=== PATIENT | female | born 1955 | race Caucasian/White ===

== ENCOUNTER 2022-03-18 16:47 | Emergency (ER) | payer MEDICARE ==
--- NOTE | 2022-03-18 17:14 | ED ---
General Adult HPI - General Chief complaint: Fall Stated complaint: Fall Time Seen by Provider: 03/18/22 16:49 Source: patient Mode of arrival: EMS Limitations: altered mental status, physical limitation - History of Present Illness Initial comments: This is a 66-year-old female with a past mental history including early onset Alzheimer's, hypertension, hypothyroidism presents emergency department via EMS after a fall. The patient stated that she was smoking a cigarette when she fell down in her home, hitting her head but not losing consciousness. The patient reportedly was having slight delay in her speech and did not have all the details of the event. The patient's was present at the bedside and stated that he saw the patient fall to her side, hitting her head on the floor. He did not state that the patient lost consciousness. The patient herself was resting in bed and did not complain of any acute pain. The patient denied any weakness but did state that she was mildly lightheaded. The patient denied any nausea and vomiting. - Related Data Allergies Allergy/AdvReac Type Severity Reaction Status Date / Time No Known Allergies Allergy Verified 03/18/22 17:00 Review of Systems ROS Statement: Those systems with pertinent positive or pertinent negative responses have been documented in the HPI. ROS Other: All systems not noted in ROS Statement are negative. Past Medical History Past Medical History: Hyperlipidemia, Hypertension, Thyroid Disorder Additional Past Medical History / Comment(s): Possible Alzheimers Past Psychological History: Schizophrenia Smoking Status: Current every day smoker Past Alcohol Use History: None Reported Past Drug Use History: None Reported General Exam Limitations: no limitations (No limitations however patient's family does state that her speech seems to be delayed) General appearance: alert, in no apparent distress Head exam: Present: atraumatic, normocephalic Eye exam: Present: normal appearance, PERRL Pupils: Present: normal accommodation ENT exam: Present: normal exam, normal oropharynx, mucous membranes moist Neck exam: Present: normal inspection, other (In c-collar per EMS) Respiratory exam: Present: normal lung sounds bilaterally Cardiovascular Exam: Present: regular rate, normal rhythm, normal heart sounds GI/Abdominal exam: Present: soft, normal bowel sounds Extremities exam: Present: normal inspection, full ROM, normal capillary refill Back exam: Present: normal inspection, full ROM Neurological exam: Present: alert, oriented X3, CN II-XII intact Psychiatric exam: Present: normal mood, flat affect Skin exam: Present: warm, dry Course Vital Signs 03/18/22 03/18/22 03/18/22 16:50 17:56 18:59 Temperature 97.6 F Pulse Rate 62 62 74 Respiratory 18 18 18 Rate Blood Pressure 109/67 127/70 O2 Sat by Pulse 95 95 95 Oximetry 03/18/22 20:06 Temperature 97.9 F Pulse Rate 72 Respiratory 16 Rate Blood Pressure 122/80 O2 Sat by Pulse 96 Oximetry Medical Decision Making - Medical Decision Making Was pt. sent in by a medical professional or institution? @ -No Did you speak to anyone other than the patient for history? @ -Patient's and daughter Did you review nursing and triage notes? @ -Nursing triage notes were obtained and reviewed Were old charts reviewed? @ -No Differential Diagnosis? @ -Intracranial hemorrhage, stroke, skull fracture EKG interpreted by me (3pts min.)? @ -[none] X-rays interpreted by me (1pt min.)? @ -Chest x-ray was obtained and was interpreted by myself showing mild pulmonary fibrosis. There was no definitive acute lung disease. CT interpreted by me (1pt min.)? @ -Computed tomography scan of the head and C-spine were obtained and were interpreted by myself showing mild degenerative disc changes at C5 to C6. There is no acute fracture. There was mild cerebral atrophy. There is no acute intracranial abnormalities U/S interpreted by me (1pt. min.)? @ -[none] What testing was considered but not performed? (CT, X-rays, U/S, labs)? Why? @ [CT, X-rays, U/S, labs? Why?] What meds were considered but not given? Why? @ -[none] Did you discuss the management of the patient with other professionals? @ -No Did you reconcile home meds? @ -[none] Was smoking cessation discussed for >3mins.? @ -Yes Was critical care preformed (if so, how long)? @ -[none] Were there social determinants of health that impacted care today? How? (Homelessness, low income, unemployed, alcoholism, drug addiction, transportation, low edu. Level, literacy, decrease access to med. care, shelter, rehab)? @ -No Was there de-escalation of care discussed even if they declined? (Discuss DNR or withdrawal of care, Hospice)? @ -No What co-morbidities impacted this encounter? (DM, HTN, Smoking, COPD, CAD, Cancer, CVA, Hep., AIDS, mental health diagnosis, sleep apnea, morbid obesity)? @ -Tobacco smoking, hypertension, hypothyroidism Was patient admitted / discharged? @ -The patient was seen and evaluated emergency department. Physical exam, the patient was resting in bed without any acute distress. Vital signs were stable. Due to the nature the patient's fall and hitting her head, CT head, CT C-spine and chest x-ray were obtained. Laboratory workup was also obtained at this time. All imaging was negative and the patient's laboratory workup was negative as well. On reevaluation, the patient stated her symptoms had completely resolved and she did have a minor headache. The patient was told that she could have suffered from a concussion and was given concussion precautions to return back to the emergency department. The patient was advised to report back to the emergency department if any persons became acutely worse and her family was told of this as well. The patient had all of her questions answered appropriately and was discharged home with her family in stable condition. Undiagnosed new problem with uncertain prognosis? @ -[none] Drug Therapy requiring intensive monitoring for toxicity (Heparin, Nitro, Insulin, Cardizem)? @ -[none] Were any procedures done? @ -[none] Diagnosis/symptom? @ -Closed head injury, possible mild concussion Acute, or Chronic, or Acute on Chronic? @ -Acute Uncomplicated (without systemic symptoms) or Complicated (systemic symptoms)? @ -Uncomplicated Side effects of treatment? @ -[none] Exacerbation, Progression, or Severe Exacerbation] @ -[no] Poses a threat to life or bodily function? @ -[no] - Lab Data Result diagrams: 03/18/22 17:18 03/18/22 17:18 Lab Results 03/18/22 03/18/22 03/18/22 Range/Units 17:18 17:18 17:18 WBC 7.5 (3.8-10.6) k/uL RBC 4.46 (3.80-5.40) m/uL Hgb 13.9 (11.4-16.0) gm/dL Hct 41.0 (34.0-46.0) % MCV 92.0 (80.0-100.0) fL MCH 31.2 (25.0-35.0) pg MCHC 33.9 (31.0-37.0) g/dL RDW 13.0 (11.5-15.5) % Plt Count 182 (150-450) k/uL MPV 8.3 Neutrophils % 75 % Lymphocytes % 17 % Monocytes % 5 % Eosinophils % 1 % Basophils % 0 % Neutrophils # 5.6 (1.3-7.7) k/uL Lymphocytes # 1.3 (1.0-4.8) k/uL Monocytes # 0.3 (0-1.0) k/uL Eosinophils # 0.1 (0-0.7) k/uL Basophils # 0.0 (0-0.2) k/uL PT 10.8 (9.0-12.0) sec INR 1.0 (<1.2) APTT 24.6 (22.0-30.0) sec Sodium (137-145) mmol/L Potassium (3.5-5.1) mmol/L Chloride (98-107) mmol/L Carbon Dioxide (22-30) mmol/L Anion Gap mmol/L BUN (7-17) mg/dL Creatinine (0.52-1.04) mg/dL Est GFR (CKD-EPI)AfAm (>60 ml/min/1.73 sqM) Est GFR (CKD-EPI)NonAf (>60 ml/min/1.73 sqM) Glucose (74-99) mg/dL Calcium (8.4-10.2) mg/dL Magnesium (1.6-2.3) mg/dL Total Bilirubin (0.2-1.3) mg/dL AST (14-36) U/L ALT (4-34) U/L Alkaline Phosphatase (38-126) U/L Total Protein (6.3-8.2) g/dL Albumin (3.5-5.0) g/dL TSH (0.465-4.680) mIU/L Urine Color Light Yellow Urine Appearance Clear (Clear) Urine pH 6.0 (5.0-8.0) Ur Specific Ava 1.003 (1.001-1.035) Urine Protein Negative (Negative) Urine Glucose (UA) Negative (Negative) Urine Ketones Negative (Negative) Urine Blood Negative (Negative) Urine Nitrite Negative (Negative) Urine Bilirubin Negative (Negative) Urine Urobilinogen <2.0 (<2.0) mg/dL Ur Leukocyte Esterase Trace H (Negative) Urine RBC 1 (0-5) /hpf Urine WBC 1 (0-5) /hpf Ur Squamous Epith Cells 3 (0-4) /hpf 03/18/22 Range/Units 17:18 WBC (3.8-10.6) k/uL RBC (3.80-5.40) m/uL Hgb (11.4-16.0) gm/dL Hct (34.0-46.0) % MCV (80.0-100.0) fL MCH (25.0-35.0) pg MCHC (31.0-37.0) g/dL RDW (11.5-15.5) % Plt Count (150-450) k/uL MPV Neutrophils % % Lymphocytes % % Monocytes % % Eosinophils % % Basophils % % Neutrophils # (1.3-7.7) k/uL Lymphocytes # (1.0-4.8) k/uL Monocytes # (0-1.0) k/uL Eosinophils # (0-0.7) k/uL Basophils # (0-0.2) k/uL PT (9.0-12.0) sec INR (<1.2) APTT (22.0-30.0) sec Sodium 134 L (137-145) mmol/L Potassium 4.3 (3.5-5.1) mmol/L Chloride 104 (98-107) mmol/L Carbon Dioxide 25 (22-30) mmol/L Anion Gap 5 mmol/L BUN 3 L (7-17) mg/dL Creatinine 0.34 L (0.52-1.04) mg/dL Est GFR (CKD-EPI)AfAm >90 (>60 ml/min/1.73 sqM) Est GFR (CKD-EPI)NonAf >90 (>60 ml/min/1.73 sqM) Glucose 85 (74-99) mg/dL Calcium 9.8 (8.4-10.2) mg/dL Magnesium 1.9 (1.6-2.3) mg/dL Total Bilirubin 0.4 (0.2-1.3) mg/dL AST 32 (14-36) U/L ALT 19 (4-34) U/L Alkaline Phosphatase 100 (38-126) U/L Total Protein 6.9 (6.3-8.2) g/dL Albumin 4.4 (3.5-5.0) g/dL TSH 1.430 (0.465-4.680) mIU/L Urine Color Urine Appearance (Clear) Urine pH (5.0-8.0) Ur Specific Ava (1.001-1.035) Urine Protein (Negative) Urine Glucose (UA) (Negative) Urine Ketones (Negative) Urine Blood (Negative) Urine Nitrite (Negative) Urine Bilirubin (Negative) Urine Urobilinogen (<2.0) mg/dL Ur Leukocyte Esterase (Negative) Urine RBC (0-5) /hpf Urine WBC (0-5) /hpf Ur Squamous Epith Cells (0-4) /hpf Disposition Clinical Impression: Fall, Closed head injury Disposition: HOME SELF-CARE Condition: Stable Instructions (If sedation given, give patient instructions): Fall Prevention for Older Adults (ED), Head Injury (DC) Is patient prescribed a controlled substance at d/c from ED?: No Referrals: Nona Trent MD [Primary Care Provider] - 1-2 days Time of Disposition: 19:45
[2022-03-18 17:28] LABS: Basophils % (A) 0 %; Eosinophils # (A) 0.1 k/uL (0-0.7); Eosinophils % (A) 1 %; HGB 13.9 gm/dL (11.4-16.0); Lymphocytes # (A) 1.3 k/uL (1.0-4.8); Lymphocytes % (A) 17 %; MCH 31.2 pg (25.0-35.0); MCHC 33.9 g/dL (31.0-37.0); Mean Platelet Volume 8.3; Monocytes # (A) 0.3 k/uL (0-1.0); Monocytes % (A) 5 %; Neutrophils # (A) 5.6 k/uL (1.3-7.7); Neutrophils % (A) 75 %; Platelet Count 182 k/uL (150-450); RBC 4.46 m/uL (3.80-5.40); WBC 7.5 k/uL (3.8-10.6)
--- NOTE | 2022-03-18 17:51 | CT ---
EXAMINATION TYPE: CT brain cspine wo con DATE OF EXAM: 03/18/2022 COMPARISON: None HISTORY: fall Pain CT DLP: 1214.5 mGycm Automated exposure control for dose reduction was used. Images obtained of the brain and cervical spine with no contrast. There is some cerebral cortical atrophy. There is no mass effect or midline shift. No sign of intracr anial hemorrhage. The calvarium is intact and there is normal aeration of the mastoid sinuses. Cervical vertebrae are normal alignment. There is mild narrowing at C5-C6 with spurring of the endpla guy. Facet joints are intact. Prevertebral soft tissues are intact. IMPRESSION: Mild degenerative disc changes at C5-6. No fracture. Mild cerebral atrophy. No acute intracranial abnormality.
[2022-03-18 17:52] LABS: Appearance,Urine Clear (Clear); Bilirubin,Urine Negative (Negative); Blood,Urine Negative (Negative); Color,Urine Light Yellow; Glucose,Urine (UA) Negative (Negative); Ketones,Urine Negative (Negative); Leukocyte Esterase,Urine Trace (Negative); Nitrite,Urine Negative (Negative); Protein,Urine Negative (Negative); RBC,Urine 1 /hpf (0-5); Specific Gravity,Urine 1.003 (1.001-1.035); Squamous Epithelial Cell,Urine 3 /hpf (0-4); Urobilinogen,Urine <2.0 mg/dL (<2.0); WBC,Urine 1 /hpf (0-5)
--- NOTE | 2022-03-18 17:53 | XR ---
EXAMINATION TYPE: XR chest 1V portable DATE OF EXAM: 03/18/2022 COMPARISON: NONE HISTORY: Weakness TECHNIQUE: Single view FINDINGS: Heart is normal. Lungs are clear of consolidation. There is mild thoracic dextro scoliosis. There is coarsening of interstitial markings. The bony thorax is intact. IMPRESSION: Mild pulmonary fibrosis. No definite acute lung disease. Normal heart.
[2022-03-18 17:54] LABS: Partial Thromboplastin Time 24.6 sec (22.0-30.0); Prothrombin Time 10.8 sec (9.0-12.0)
[2022-03-18 18:24] LABS: ALT 19 U/L (4-34); AST 32 U/L (14-36); African American GFR (CKD) >90 (>60 ml/min/1.73 sqM); Albumin 4.4 g/dL (3.5-5.0); Alkaline Phosphatase 100 U/L (38-126); Anion Gap 5 mmol/L; Blood Urea Nitrogen 3 mg/dL (7-17); Calcium 9.8 mg/dL (8.4-10.2); Carbon Dioxide 25 mmol/L (22-30); Chloride 104 mmol/L (98-107); Glucose 85 mg/dL (74-99); Magnesium 1.9 mg/dL (1.6-2.3); Non-African American GFR(CKD) >90 (>60 ml/min/1.73 sqM); Potassium 4.3 mmol/L (3.5-5.1); Sodium 134 mmol/L (137-145); Total Bilirubin 0.4 mg/dL (0.2-1.3); Total Protein 6.9 g/dL (6.3-8.2)
[2022-03-18] MEDS ORDERED: KETOROLAC 15 MG/ML 1 ML VIAL IVP STA (19:54)
[2022-03-18 20:08] VITALS: BP 122/80; PULSE 72; RESP 16; TEMP 97.9
== END 2022-03-18 20:06 | disposition home or self-care (01) ==
LOC: EC 16:47
DX: S09.90XA Unspecified injury of head, initial encounter (principal); J84.10 Pulmonary fibrosis, unspecified; I10 Essential (primary) hypertension; F17.210 Nicotine dependence, cigarettes, uncomplicated; W18.09XA Striking against other object with subsequent fall, initial encounter; Y92.009 Unspecified place in unspecified non-institutional (private) residence as the place of occurrence of the external cause
CPT/HCPCS: 36415; 80053; 84443; 83735; 85025; 85610; 85730; 81001; 71045; 72125; 70450; 99285; 96374; J1885

== ENCOUNTER 2022-03-25 13:56 | Emergency (ER) | payer MEDICARE ==
[2022-03-25 14:04] VITALS: RESP 18; TEMP 97.6
--- NOTE | 2022-03-25 14:43 | ED ---
General Adult HPI - General Chief complaint: Recheck/Abnormal Lab/Rx Stated complaint: Left hip pain Time Seen by Provider: 03/25/22 14:22 Source: patient, family, RN notes reviewed Mode of arrival: ambulatory Limitations: no limitations - History of Present Illness Initial comments: Patient is a pleasant 66-year-old female presenting to the emergency department with concerns with left hip pain. Onset of symptoms was a week ago. Patient did have a fall.Please use medication as discussed. Please follow-up with family doctor in the next 2 days of symptoms have not improved. Please return to emergency room if the symptoms increase or worsen or for any other concerns. States she did have a head injury. Patient did have head CT done. Patient s tates she is having continued discomfort near her left hip. Patient states she is not able to walk on it. When further questioned regarding this, patient states she actually is able to walk on it however just has discomfort. Patient states she is able to make it to and from the restroom and confirms this. Patient does not have any other complaints at this time. - Related Data Home Medications Medication Instructions Recorded Confirmed Ergocalciferol [Vitamin D2 (1250 1,250 mcg PO WEEKLY 03/25/22 03/25/22 Mcg = 68335 Iu)] QUEtiapine FUMARATE 200 mg PO HS 03/25/22 03/25/22 Sertraline [Zoloft] 100 mg PO BID 03/25/22 03/25/22 clonazePAM [KlonoPIN] 2 mg PO BID 03/25/22 03/25/22 Allergies Allergy/AdvReac Type Severity Reaction Status Date / Time No Known Allergies Allergy Verified 03/25/22 15:28 Review of Systems ROS Statement: Those systems with pertinent positive or pertinent negative responses have been documented in the HPI. ROS Other: All systems not noted in ROS Statement are negative. Constitutional: Denies: fever Eyes: Denies: eye pain ENT: Denies: ear pain Respiratory: Denies: cough Cardiovascular: Denies: chest pain Endocrine: Denies: fatigue Gastrointestinal: Denies: abdominal pain Genitourinary: Denies: dysuria Musculoskeletal: Reports: as per HPI Skin: Denies: rash Neurological: Denies: weakness Past Medical History Past Medical History: Hyperlipidemia, Hypertension, Thyroid Disorder Additional Past Medical History / Comment(s): Possible Alzheimers Past Psychological History: Schizophrenia Smoking Status: Current every day smoker Past Alcohol Use History: None Reported Past Drug Use History: None Reported General Exam Limitations: no limitations General appearance: alert, in no apparent distress Head exam: Present: normocephalic Eye exam: Present: normal appearance, PERRL Neck exam: Present: normal inspection. Absent: tenderness Respiratory exam: Present: normal lung sounds bilaterally Cardiovascular Exam: Present: regular rate, normal rhythm Expanded Peripheral pulses: 2+: Dorsalis Pedis (R), Dorsalis Pedis (L) GI/Abdominal exam: Present: soft. Absent: tenderness Extremities exam: Present: tenderness (Mild to moderate tenderness left lateral and anterior hip. Distally the extremity is neurovascular intact.) Back exam: Present: normal inspection. Absent: tenderness, vertebral tenderness Neurological exam: Present: alert. Absent: motor sensory deficit Psychiatric exam: Present: normal affect, normal mood Skin exam: Present: normal color Course Vital Signs 03/25/22 14:00 Temperature 97.6 F Pulse Rate 65 Respiratory 18 Rate Blood Pressure 122/71 O2 Sat by Pulse 95 Oximetry Medical Decision Making - Medical Decision Making Patient reevaluated. Patient does not want pain medication. - Radiology Data Interpreted by me: X-ray shows nondisplaced pubic rami fracture Disposition Clinical Impression: Pubic ramus fracture Disposition: HOME SELF-CARE Condition: Stable Instructions (If sedation given, give patient instructions): Pelvic Fracture (ED) Additional Instructions: Please do follow-up with primary care physician in the next one or 2 days for recheck. Also follow-up with orthopedics, number provided. Return for increased pain, weakness, worsening or changing symptoms or other concerns or bladder problems. Ice to affected areas needed. Continue [id number] Tylenol or Motrin as needed. Is patient prescribed a controlled substance at d/c from ED?: No Referrals: Nona Trent MD [Primary Care Provider] - 1-2 days Renuka Hagen NPC [Nurse Practitioner] - 1-2 days Time of Disposition: 15:35
--- NOTE | 2022-03-25 15:12 | XR ---
EXAMINATION TYPE: XR Hip LT and AP Pelvis DATE OF EXAM: 03/25/2022 COMPARISON: NONE HISTORY: Pain TECHNIQUE: 3 views FINDINGS: There is irregular cortex on the left pubic symphysis. The proximal left femur and hip join t are intact. Sacroiliac joints are intact. IMPRESSION: Possible nondisplaced fracture left side pubic symphysis. No evidence of hip fracture.
[2022-03-25 16:32] VITALS: BP 120/69; PULSE 66
== END 2022-03-25 16:10 | disposition home or self-care (01) ==
LOC: EC 13:56
DX: S32.592A Other specified fracture of left pubis, initial encounter for closed fracture (principal); E78.5 Hyperlipidemia, unspecified; I10 Essential (primary) hypertension; E07.9 Disorder of thyroid, unspecified; F17.200 Nicotine dependence, unspecified, uncomplicated; W19.XXXA Unspecified fall, initial encounter
CPT/HCPCS: 73502; 99283

== ENCOUNTER → 2022-03-27 | Outpatient (CLI) | payer MEDICARE ==
--- NOTE | 2022-03-27 15:16 | US ---
EXAMINATION TYPE: US thyroid st tissue head/neck DATE OF EXAM: 03/27/2022 COMPARISON: NONE CLINICAL HISTORY: 66-year-old female E21.0 PRIMARY HYPERPARATHYROIDISM. TECHNIQUE: Multiple sonographic images of the thyroid gland are obtained. FINDINGS: GLAND SIZE: Right Lobe: 5.6 x 1.9 x 1.7 cm Overall Parenchyma: homogenous Left Lobe: 4.5 x 1.5 x 1.2 cm Overall Parenchyma: homogeneous Isthmus Thickness: .2 cm NODULES RIGHT: # of nodules measured on right: 1 1. 1.0 X .7 x .6 cm, mid , mixed cystic and solid, primarily solid hypoechoic nodule, which is wide r than tall, with lobulated or irregular margins, with macrocalcification. This is a TR5 nodule. Prior size: no previous. LEFT: # of nodules measured on left: 0 ISTHMUS: # of nodules measured in the isthmus: 0 Bilateral neck scanned, no evidence of lymphadenopathy. IMPRESSION: A 1.0 cm TR5 nodule at the right midpole. FNA can be performed.
--- NOTE | 2022-03-27 17:02 | BD ---
EXAMINATION TYPE: Axial Bone Density DATE OF EXAM: 03/27/2022 COMPARISON: NONE CLINICAL HISTORY: 66 years year old Female. ICD-10 CODE: E21.0 PRIMARY HYPERPARTHYROIDISM Height: 64 Weight: 107-per pt, she is non-weight bearing because of possible fx in lt ramus. FRAX RISK QUESTIONS: Alcohol (3 or more units per day): NO Family History (Parent hip fracture): NO Glucocorticoids (More than 3mos): NO History of Fracture in Adulthood: POSSIBLE NON-DISPLACED PELVIC FX Secondary Osteoporosis: 1. Type 1 Diabetes:NO 2. Hyperthyroidism: NO 3. Menopause before 45: NO 4. Malnutrition: NO 5. Chronic liver disease: NO Rheumatoid Arthritis: NO Current Tobacco Use: YES RISK FACTORS HISTORY OF: Hip Fracture (Right/Left): NO Spine Fracture: NO History of Wrist Fracture: NO Surgery to Spine/Hip(right/left)/Wrist (right/left): NO Family History of Osteoporosis: NO Active: NO Diet low in dairy products/other sources of calcium: YES Postmenopausal woman: NO Take estrogen and/or progesterone medications: NO Lost more than 2 inches in height since high school: NO Frequent falls: YES Poor Health: YES Hyperparathyroidism: NO Adrenal Insufficiency: NO MEDICATIONS: Prednisone or other steroids: NO Thyroid Medications: NO Osteoporosis Medications: NO Additional Medications: CLONAZEPAM, QUETIAPINE, SERTRALINE, VIT D 50,000 ONCE A WEEK EXAM MEASUREMENTS: Bone mineral densitometry was performed using the [employer] System. Bone mineral density as measured about the Lumbar spine is: ----- L1-L4(G/cm2): 1.035 T Score Values are as follows: ----- L1: -1.2 ----- L2: -1.0 ----- L3: -1.6 ----- L4: -1.0 ----- L1-L4: -1.2 BASELINE STUDY Bone mineral density about the R hip (g/cm2): 0.691 Bone mineral density about the L hip (g/cm2): 0.635 T Score values are as follows: -----R Neck: -2.5 -----L Neck: -2.9 -----R Total: -2.7 -----L Total: -2.8 BASELINE STUDY FRAX%s: The graph provided illustrates a 24.8% chance for a major osteoporotic fx and a 11.3% chance for the hips probability for fx in 10 years time. IMPRESSION: Osteoporosis (T Score less than -2.5). There is increased fracture risk and therapy is usually indicated based on age. Re-Screen 1-2 years. NOTE: T-SCORE=SD OF THE YOUNG ADULT MEAN.
== END | disposition home or self-care (01) ==
LOC: RADUSWWP 13:42
PROVIDERS: ATTEND Internal Medicine Endocrinology, Diabetes & Metabolism
DX: E04.1 Nontoxic single thyroid nodule (principal); M81.0 Age-related osteoporosis without current pathological fracture; M85.89 Other specified disorders of bone density and structure, multiple sites; E21.0 Primary hyperparathyroidism
CPT/HCPCS: 76536; 77080

== ENCOUNTER → 2022-06-06 | Outpatient (CLI) | payer MEDICARE ==
[2022-06-06 19:08] LABS: African American GFR (CKD) 116.9 (60.0-200.0); Albumin/Globulin Ratio 2.17 (1.60-3.17); Anion Gap 11.7 mmol/L (10.00-18.00); Calcium 10.7 mg/dL (8.7-10.3); Carbon Dioxide 27.3 mmol/L (20.0-27.5); Globulin 2.3 g/dL (1.6-3.3); Non-African American GFR(CKD) 100.9 (60.0-200.0); Potassium 4.7 mmol/L (3.5-5.5); Total Bilirubin 0.2 mg/dL (0.30-1.20); Total Protein 7.3 g/dL (6.2-8.2)
== END | disposition home or self-care (01) ==
LOC: LABWHC1 12:10
PROVIDERS: ATTEND Internal Medicine Endocrinology, Diabetes & Metabolism
DX: E21.0 Primary hyperparathyroidism (principal)
CPT/HCPCS: 80053; 82306; 83970

== ENCOUNTER → 2022-06-13 | Outpatient (CLI) | payer MEDICARE ==
--- NOTE | 2022-06-13 15:39 | US ---
EXAMINATION TYPE: US thyroid st tissue head/neck DATE OF EXAM: 06/13/2022 COMPARISON: CLINICAL HISTORY: E21.0. Abnormal labs. GLAND SIZE: Right Lobe: 4.4 x 1.7 x 2.3 cm Overall Parenchyma: heterogenous Left Lobe: 4.2 x 1.1 x 1.5 cm Overall Parenchyma: heterogeneous Isthmus Thickness: 0.3 cm NODULES RIGHT: # of nodules measured on right: 2 1. 0.9 X 0.7 x 0.5 cm, mid mid, mixed cystic and solid, hypoechoic nodule, which is wider than tall , with ill-defined margins, with echogenic foci. Prior size: 1.0 x 0.7 x 0.6 cm 2. 0.6 X 0.5 x 0.4 cm, mid medial, solid or almost completely solid, isoechoic nodule, which is wid er than tall, with ill-defined margins, without echogenic foci. Prior size: No prior LEFT: # of nodules measured on left: 0 ISTHMUS: # of nodules measured in the isthmus: 0 Bilateral neck scanned, no evidence of lymphadenopathy. Parathyroids not visualized at time of scan. IMPRESSION: 1. Subcentimeter nodules.
== END | disposition home or self-care (01) ==
LOC: RADNMMAIN 11:15
PROVIDERS: ATTEND Surgery
DX: E04.2 Nontoxic multinodular goiter (principal); E21.0 Primary hyperparathyroidism
CPT/HCPCS: 76536

== ENCOUNTER → 2022-06-13 | Outpatient (CLI) | payer MEDICARE ==
[2022-06-14 04:11] LABS: Calcium 24 Hour,Urine 97.8 mg/24Hr (100.0-300.0)
== END | disposition home or self-care (01) ==
LOC: LABWHC1 11:07
PROVIDERS: ATTEND Surgery
DX: E21.0 Primary hyperparathyroidism (principal)
CPT/HCPCS: 81050; 82340

== ENCOUNTER 2022-07-19 12:04 | Day surgery (SDC) | payer MEDICARE ==
[2022-07-19 13:08] VITALS: RESP 16; TEMP 97.8
--- NOTE | 2022-07-19 14:25 | US ---
ULTRASOUND GUIDED FNA THYROID BIOPSY: CLINICAL HISTORY: Right thyroid nodule FINDINGS: The procedure was explained to the patient. The risks, complications, benefits and alternatives were discussed and any questions were answered. Informed consent was obtained. Patient was placed supin e on the ultrasound table and prepped and draped in the usual sterile fashion. Utilizing a 25 gauge needle, five passes were made into the requested right thyroid nodule. Patient was stable throughout the procedure. Pathology is pending. All elements of maximal barrier technique were utilized. IMPRESSION: 1. Successful ultrasound guided FNA thyroid biopsy.
[2022-07-19 14:38] VITALS: BP 127/83; PULSE 58
== END 2022-07-19 14:15 | disposition home or self-care (01) ==
LOC: RADPROMAIN 12:04
PROVIDERS: ATTEND Internal Medicine Endocrinology, Diabetes & Metabolism
DX: E04.1 Nontoxic single thyroid nodule (principal)
CPT/HCPCS: 10005; 88173; 88305

== ENCOUNTER 2022-10-21 14:25 | Emergency (ER) | payer MEDICARE ==
--- NOTE | 2022-10-21 17:10 | ED ---
General Adult HPI - General Chief complaint: Skin/Abscess/Foreign Body Stated complaint: Post-op lump on chest Time Seen by Provider: 10/21/22 16:55 Source: patient, family Mode of arrival: ambulatory - History of Present Illness Initial comments: Patient presents to the ED with her daughter and son-in-law for evaluation. Patient states that she had surgery to remove her parathyroid glands at [facility] 5 days ago, and she developed a painful area of swelling along her anterior chest about 3 days ago. Patient states that she has come to the ED today for evaluation of this area of chest wall swelling. Patient denies increasing swelling, increasing pain, a fever or chills, chest wall trauma or injury, drainage, anticoagulant medication use, pleuritic pain, dyspnea, palpitations, dizziness, abdominal pain, nausea or vomiting, leg or calf swelling or pain, or any other symptoms or complaints. - Related Data Home Medications Medication Instructions Recorded Confirmed Ergocalciferol [Vitamin D2 (1250 1,250 mcg PO WEEKLY 03/25/22 07/19/22 Mcg = 78608 Iu)] QUEtiapine FUMARATE 200 mg PO HS 03/25/22 07/19/22 Sertraline [Zoloft] 100 mg PO BID 03/25/22 07/19/22 clonazePAM [KlonoPIN] 2 mg PO BID 03/25/22 07/19/22 Allergies Allergy/AdvReac Type Severity Reaction Status Date / Time amoxicillin Allergy Unknown Verified 10/21/22 14:37 Childhood Review of Systems ROS Statement: Those systems with pertinent positive or pertinent negative responses have been documented in the HPI. ROS Other: All systems not noted in ROS Statement are negative. Past Medical History Past Medical History: Hyperlipidemia, Hypertension, Thyroid Disorder Additional Past Medical History / Comment(s): Possible Alzheimers History of Any Multi-Drug Resistant Organisms: None Reported Past Surgical History: Section Past Anesthesia/Blood Transfusion Reactions: Postoperative Nausea & Vomiting (PONV) Past Psychological History: Depression, PTSD Smoking Status: Current every day smoker Past Alcohol Use History: None Reported Past Drug Use History: None Reported - Past Family History Mother Family Medical History: Coronary Artery Disease (CAD) General Exam Limitations: no limitations General appearance: alert, in no apparent distress Eye exam: Present: normal appearance ENT exam: Present: mucous membranes moist Neck exam: Present: other (Trachea is in midline; patient's anterior cervical surgical wound appears to be healing well without any evidence of infection) Respiratory exam: Present: normal lung sounds bilaterally, other (There is an approximately 3 cm area of mild swelling and tenderness and ecchymosis noted to the patient's superior sternal region-> no fluctuance, drainage or crepitation is appreciated). Absent: respiratory distress, wheezes, rales, rhonchi, stridor Cardiovascular Exam: Present: regular rate, normal rhythm, normal heart sounds, other (Normal radial pulses bilaterally) Extremities exam: Absent: tenderness, pedal edema, calf tenderness Neurological exam: Present: alert, oriented X3 Psychiatric exam: Present: normal affect, normal mood Skin exam: Present: warm, dry Course Vital Signs 10/21/22 10/21/22 10/21/22 14:34 15:55 17:06 Temperature 98.6 F 98.3 F 98.3 F Pulse Rate 65 67 62 Respiratory 18 16 18 Rate Blood Pressure 126/76 131/76 150/94 O2 Sat by Pulse 96 96 96 Oximetry Medical Decision Making - Medical Decision Making Was pt. sent in by a medical professional or institution (, PA, STOPPERER ASSEMBLER, urgent care, hospital, or fpc...) When possible be specific @ -No Did you speak to anyone other than the patient for history (EMS, parent, family, police, friend...)? What history was obtained from this source @ -No Did you review nursing and triage notes (agree or disagree)? Why? @ -I reviewed and agree with nursing and triage notes Were old charts reviewed (outside hosp., previous admission, EMS record, old EKG, old radiological studies, urgent care reports/EKG's, fpc records)? Report findings @ -No old charts were reviewed Differential Diagnosis (chest pain, altered mental status, abdominal pain women, abdominal pain men, vaginal bleeding, weakness, fever, dyspnea, syncope, headache, dizziness, GI bleed, back pain, seizure, CVA, palpatations, mental health, musculoskeletal)? @ -Chest wall hematoma, chest wall mass, chest wall abscess, chest wall seroma, malignancy EKG interpreted by me (3pts min.). @ -None done X-rays interpreted by me (1pt min.). @ -None done CT interpreted by me (1pt min.). @ -None done U/S interpreted by me (1pt. min.). @ -None done What testing was considered but not performed or refused? (CT, X-rays, U/S, labs)? Why? @ -None What meds were considered but not given or refused? Why? @ -None Did you discuss the management of the patient with other professionals (professionals i.e. , PA, STOPPERER ASSEMBLER, lab, RT, psych nurse, transition social worker, vacuum frame operator, teacher, medical officer psychiatry, outsole caser)? Give summary @ -No Was smoking cessation discussed for >3mins.? @ -No Was critical care preformed (if so, how long)? @ -No Were there social determinants of health that impacted care today? How? (Homelessness, low income, unemployed, alcoholism, drug addiction, transportati on, low edu. Level, literacy, decrease access to med. care, [place] [facility], rehab)? @ -No Was there de-escalation of care discussed even if they declined (Discuss DNR or withdrawal of care, Hospice)? DNR status @ -No What co-morbidities impacted this encounter? (DM, HTN, Smoking, COPD, CAD, Cancer, CVA, ARF, Chemo, Hep., AIDS, mental health diagnosis, sleep apnea, morbid obesity)? @ -None Was patient admitted / discharged? Hospital course, mention meds given and route, prescriptions, significant lab abnormalities, going to OR and other pertinent info. @ -Given the patient's reported history of recent surgery, as well as the ecchymotic appearance of her chest wall swelling, I suspect that the patient's chest wall swelling is likely due to a small hematoma. Still, I discussed the option to obtain lab work and chest imaging, but the patient refused, stating that she wishes to go home at this time. Patient and daughter/son-in-law were counseled about chest wall hematomas, and they were clearly explained return and follow-up instructions. Patient was instructed to follow up closely with her surgeon at [facility], as well as her primary care provider. Patient feels comfortable with this plan. Undiagnosed new problem with uncertain prognosis? @ -[o]Drug Therapy requiring intensive monitoring for toxicity (Heparin, Nitro, Insulin, Cardizem)? @ -[o]Were any procedures done? @ -[o]Diagnosis/symptom? @ -[Chest wall hematoma Acute, or Chronic, or Acute on Chronic? @ -[Acute Uncomplicated (without systemic symptoms) or Complicated (systemic symptoms)? @ -[Uncomplicated Side effects of treatment? @ -[o]Exacerbation, Progression, or Severe Exacerbation? @ -[o]Poses a threat to life or bodily function? How? (Chest pain, [place], [place], pneumonia, PE, COPD, DKA, ARF, appy, cholecystitis, CVA, Diverticulitis, Homicidal, Suicidal, threat to staff... and all critical care pts) @ -[o] Disposition Clinical Impression: Chest wall hematoma Disposition: HOME SELF-CARE Condition: Stable Instructions (If sedation given, give patient instructions): Hematoma (ED) Additional Instructions: Return to the ER immediately should you develop increased swelling, increased pain, a fever, shortness of breath, feeling dizzy or faint, or new or worsening symptoms. Follow up closely with your surgeon at [facility], as well as your primary care physician. Is patient prescribed a controlled substance at d/c from ED?: No Referrals: Nona Trent MD [Primary Care Provider] - 1-2 days Time of Disposition: 17:21
[2022-10-21 17:55] VITALS: BP 145/79; PULSE 65; RESP 16; TEMP 98.1
== END 2022-10-21 17:55 | disposition home or self-care (01) ==
LOC: EC 14:25
DX: S20.219A Contusion of unspecified front wall of thorax, initial encounter (principal); I10 Essential (primary) hypertension; F32.A Depression, unspecified; F17.200 Nicotine dependence, unspecified, uncomplicated; Z88.0 Allergy status to penicillin; Z79.899 Other long term (current) drug therapy; X58.XXXA Exposure to other specified factors, initial encounter
CPT/HCPCS: 99283

== ENCOUNTER 2022-11-18 14:01 | Emergency (ER) | payer OTHER, MEDICARE ==
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
[2022-11-18] MEDS ORDERED: MECLIZINE 12.5 MG TAB PO STA (15:30)
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
[2022-11-18 17:42] VITALS: BP 129/79; PULSE 72; RESP 16; TEMP 98.2
== END 2022-11-18 17:41 | disposition home or self-care (01) ==
LOC: EC 14:01
DX: F07.81 Postconcussional syndrome (principal); I10 Essential (primary) hypertension; F17.200 Nicotine dependence, unspecified, uncomplicated; Z86.59 Personal history of other mental and behavioral disorders; V43.52XA Car driver injured in collision with other type car in traffic accident, initial encounter; Y92.410 Unspecified street and highway as the place of occurrence of the external cause
CPT/HCPCS: 70450; 72110; 72125; 72170; 99284

== ENCOUNTER → 2022-12-28 | Outpatient (CLI) | payer MEDICARE, OTHER ==
[2022-12-28 20:54] LABS: ALT 11 U/L (8-44); AST 17 U/L (13-35); Albumin 4.6 d/dL (3.8-4.9); Albumin/Globulin Ratio 2.19 Ratio (1.60-3.17); Alkaline Phosphatase 102 U/L (41-126); Blood Urea Nitrogen 4.6 mg/dL (9.0-27.0); Calcium 9.3 mg/dL (8.7-10.3); Chloride 102 mmol/L (96-109); Chol/HDL Ratio 4.31 Ratio; Globulin 2.1 d/dL (1.6-3.3); Glucose 92 mg/dL (70-110); LDL Cholesterol,Calculated 171.9 mg/dL (0.0-131.0); Potassium 4.1 mmol/L (3.5-5.5); Sodium 140 mmol/L (135-145); Total Bilirubin 0.3 mg/dL (0.3-1.2); Total Protein 6.7 d/dL (6.2-8.2)
[2022-12-28 22:11] LABS: Basophils # (A) 0.02 X 10*3/uL (0.00-0.10); Basophils % (A) 0.4 %; Eosinophils # (A) 0.08 X 10*3/uL (0.04-0.35); Eosinophils % (A) 1.5 %; HCT 41.4 % (37.2-46.3); HGB 13.6 d/dL (12.0-15.0); Lymphocytes # (A) 1.34 X 10*3/uL (0.90-5.00); Lymphocytes % (A) 24.5 %; MCH 30.4 pg (27.0-32.0); MCHC 32.9 d/dL (32.0-37.0); MCV 92.6 FL (80.0-97.0); Mean Platelet Volume 10.6 FL (9.5-12.2); Monocytes # (A) 0.36 X 10*3/uL (0.20-1.00); Monocytes % (A) 6.6 %; NRBC Per 100 WBC 0 X 10*3/uL (0.00-0.01); Neutrophils # (A) 3.63 X 10*3/uL (1.80-7.70); Neutrophils % (A) 66.5 %; Platelet Count 196 X 10*3/uL (140-440); RBC 4.47 X 10*6/uL (4.10-5.20); RDW 13.6 % (11.5-14.5); WBC 5.46 X 10*3/uL (4.50-10.00)
== END | disposition home or self-care (01) ==
LOC: LABWHC1 13:49
PROVIDERS: ATTEND Family Medicine
DX: Z00.00 Encounter for general adult medical examination without abnormal findings (principal); E78.5 Hyperlipidemia, unspecified; E32.9 Disease of thymus, unspecified; E21.2 Other hyperparathyroidism; R42 Dizziness and giddiness
CPT/HCPCS: 36415; 80053; 80061; 85025

== ENCOUNTER → 2023-02-01 | Outpatient (CLI) | payer MEDICARE ==
[2023-02-01 21:52] LABS: ALT 14 U/L (8-44); AST 22 U/L (13-35); Albumin 4.7 g/dL (3.8-4.9); Albumin/Globulin Ratio 2.24 Ratio (1.60-3.17); Alkaline Phosphatase 107 U/L (41-126); BUN/Creat Ratio <7.00 Ratio (12.00-20.00); Blood Urea Nitrogen <3.5 mg/dL (9.0-27.0); Calcium 9.6 mg/dL (8.7-10.3); Carbon Dioxide 29.2 mmol/L (21.6-31.8); Chloride 105 mmol/L (96-109); Globulin 2.1 g/dL (1.6-3.3); Glucose 85 mg/dL (70-110); Potassium 4.5 mmol/L (3.5-5.5); Sodium 145 mmol/L (135-145); Total Bilirubin 0.2 mg/dL (0.3-1.2); Total Protein 6.8 g/dL (6.2-8.2)
== END | disposition home or self-care (01) ==
LOC: LABWHC1 12:30
PROVIDERS: ATTEND Internal Medicine Endocrinology, Diabetes & Metabolism
DX: E21.0 Primary hyperparathyroidism (principal)
CPT/HCPCS: 36415; 80053; 82306; 83970

== ENCOUNTER 2023-10-24 11:53 | Inpatient (IN) | payer MEDICARE ==
[2023-10-24 12:29] LABS: Glucose,Whole Blood 100 mg/dL (70-110)
--- NOTE | 2023-10-24 12:33 | ED ---
General Adult HPI - General Chief complaint: Neuro Symptoms/Deficit Stated complaint: Neuro Symp Time Seen by Provider: 10/24/23 12:02 Source: patient, RN notes reviewed Mode of arrival: wheelchair Limitations: no limitations - History of Present Illness Initial comments: Patient is a 68-year-old female presenting to the emergency department with weakness. Onset of symptoms was 10:00 last night. Patient has some difficulty swallowing and with speech. Patient also noticed some difficulty with her extremities. No history of similar symptoms previously. History has been inconsistent per nursing staff. - Related Data Home Medications Medication Instructions Recorded Confirmed QUEtiapine FUMARATE 100 mg PO HS 03/25/22 10/24/23 Sertraline [Zoloft] 100 mg PO DAILY 03/25/22 10/24/23 clonazePAM [KlonoPIN] 1 mg PO BID PRN 10/24/23 10/24/23 Allergies Allergy/AdvReac Type Severity Reaction Status Date / Time amoxicillin Allergy Unknown Verified 10/24/23 13:24 Childhood Review of Systems ROS Statement: Those systems with pertinent positive or pertinent negative responses have been documented in the HPI. ROS Other: All systems not noted in ROS Statement are negative. Constitutional: Denies: fever Eyes: Denies: eye pain ENT: Denies: ear pain Respiratory: Denies: cough, dyspnea Neurological: Reports: as per HPI, weakness. Denies: headache Past Medical History Past Medical History: Hyperlipidemia, Hypertension, Thyroid Disorder Additional Past Medical History / Comment(s): Possible Alzheimers History of Any Multi-Drug Resistant Organisms: None Reported Past Surgical History: Section Past Anesthesia/Blood Transfusion Reactions: Postoperative Nausea & Vomiting (PONV) Past Psychological History: Depression, PTSD Smoking Status: Current every day smoker Past Alcohol Use History: None Reported Past Drug Use History: None Reported - Past Family History Mother Family Medical History: Coronary Artery Disease (CAD) General Exam Limitations: no limitations General appearance: alert, in no apparent distress Head exam: Present: normocephalic Eye exam: Present: normal appearance, PERRL, EOMI ENT exam: Present: normal oropharynx Respiratory exam: Present: normal lung sounds bilaterally Cardiovascular Exam: Present: regular rate, normal rhythm, normal heart sounds GI/Abdominal exam: Present: soft. Absent: tenderness Extremities exam: Present: normal inspection Neurological exam: Present: alert Expanded Neurological exam: Present: protecting the airway, other (Slurred speech) Cranial nerves: EOM's Intact: Normal, Facial Sensation: Normal, Facial Palsy with Forehead Movement: Abnormal Right (Mild right facial droop that spares the forehead) Sensory exam: Upper Extremity Light Touch: Normal, Lower Extremity Light Touch: Normal Motor strength exam: RUE: 5, LUE: 5, RLE: 4, LLE: 5 Eye Response: (4) open spontaneously Motor Response: (6) obeys commands Verbal Response: (5) oriented Psychiatric exam: Present: normal affect, normal mood Skin exam: Present: normal color Course Vital Signs 10/24/23 10/24/23 11:57 13:13 Temperature 97.5 F L Pulse Rate 70 61 Respiratory 18 20 Rate Blood Pressure 134/73 124/74 O2 Sat by Pulse 92 L 96 Oximetry - Reevaluation(s) Reevaluation #1: 10/24/23 12:41 Case was discussed with Dr. Heart who recommends admission for medical care and agrees patient is not a candidate for tPA. Last known well is greater than 4.5 hours and risks are felt to outweigh the benefits EKG Findings - EKG Results: EKG: interpreted by ERMD, sinus rhythm, normal axis, normal QRS, normal ST/T Medical Decision Making - Medical Decision Making Was pt. sent in by a medical professional or institution (, [facility], PACKING AND FINAL ASSEMBLY SUPERVISOR, urgent care, hospital, or detention...) When possible be specific @ -No Did you speak to anyone other than the patient for history (EMS, parent, family, police, friend...)? What history was obtained from this source @ - later arrives and helps with onset. Did you review nursing and triage notes (agree or disagree)? Why? @ -I reviewed and agree with nursing and triage notes Were old charts reviewed (outside hosp., previous admission, EMS record, old EKG, old radiological studies, urgent care reports/EKG's, detention records)? Report findings @ -No old charts were reviewed Differential Diagnosis (chest pain, altered mental status, abdominal pain women, abdominal pain men, vaginal bleeding, weakness, fever, dyspnea, syncope, headache, dizziness, GI bleed, back pain, seizure, CVA, palpatations, mental health, musculoskeletal)? @ -Differential Weakness: Hypoglycemia, shock, sepsis, hyponatremia, anemia, infection, CT, ETOH, adverse medicine reaction, overdose, stroke, this is not meant to be an all-inclusive list. EKG interpreted by me (3pts min.). @ -As above X-rays interpreted by me (1pt min.). @ -Chest x-ray shows no acute process CT interpreted by me (1pt min.). @ -CT scan of brain and CT angio did not reveal acute abnormality U/S interpreted by me (1pt. min.). @ -None done What testing was considered but not performed or refused? (CT, X-rays, U/S, lab s)? Why? @ -None What meds were considered but not given or refused? Why? @ -Patient is not a tPA candidate Did you discuss the management of the patient with other professionals (professionals i.e. , PA, PACKING AND FINAL ASSEMBLY SUPERVISOR, lab, RT, psych nurse, director social, screening nurse, teacher, chemical instrumentation officer, case preparer and liner)? Give summary @ -Case discussed with Dr. Heart, see above. Case also discussed with practitioner Junior who will admit covering Dr. Mtz, who will admit for Dr. Ramirez Was smoking cessation discussed for >3mins.? @ -No Was critical care preformed (if so, how long)? @ -31 minutes critical care Were there social determinants of health that impacted care today? How? (Homelessness, low income, unemployed, alcoholism, drug addiction, transportation, low edu. Level, literacy, decrease access to med. care, alf, rehab)? @ -No Was there de-escalation of care discussed even if they declined (Discuss DNR or withdrawal of care, Hospice)? DNR status @ -No What co-morbidities impacted this encounter? (DM, HTN, Smoking, COPD, CAD, Cancer, CVA, ARF, Chemo, Hep., AIDS, mental health diagnosis, sleep apnea, morbid obesity)? @ -None Was patient admitted / discharged? Hospital course, mention meds given and route, prescriptions, significant lab abnormalities, going to OR and other pertinent info. @ -Patient presents with stroke symptoms, last known well 10 PM last night. Not a tPA candidate secondary to last known well greater than 4.5 hours. Patient reevaluated and unchanged. Patient and family updated on results and plan. Admission orders written. Neurology will be placed on consult. Undiagnosed new problem with uncertain prognosis? @ -No Drug Therapy requiring intensive monitoring for toxicity (Heparin, Nitro, Insulin, Cardizem)? @ -No Were any procedures done? @ -No Diagnosis/symptom? @ -CVA Acute, or Chronic, or Acute on Chronic? @ -Acute Uncomplicated (without systemic symptoms) or Complicated (systemic symptoms)? @ -Default Side effects of treatment? @ -No Exacerbation, Progression, or Severe Exacerbation? @ -No Poses a threat to life or bodily function? How? (Chest pain, USA, CT, pneumonia, PE, COPD, DKA, ARF, appy, cholecystitis, CVA, Diverticulitis, Homicidal, Suicidal, threat to staff... and all critical care pts) @ -Threat to neurological function - Lab Data Result diagrams: 10/24/23 12:43 10/24/23 12:43 Lab Results 10/24/23 10/24/23 10/24/23 Range/Units 12:27 12:43 12:43 WBC 5.6 (3.8-10.6) k/uL RBC 4.72 (3.80-5.40) m/uL Hgb 14.4 (11.4-16.0) gm/dL Hct 43.5 (34.0-46.0) % MCV 92.1 (80.0-100.0) fL MCH 30.4 (25.0-35.0) pg MCHC 33.0 (31.0-37.0) g/dL RDW 12.6 (11.5-15.5) % Plt Count 242 (150-450) k/uL MPV 7.2 Neutrophils % 67 % Lymphocytes % 24 % Monocytes % 5 % Eosinophils % 2 % Basophils % 1 % Neutrophils # 3.7 (1.3-7.7) k/uL Lymphocytes # 1.3 (1.0-4.8) k/uL Monocytes # 0.3 (0-1.0) k/uL Eosinophils # 0.1 (0-0.7) k/uL Basophils # 0.0 (0-0.2) k/uL PT 10.8 (10.0-12.5) sec INR 1.0 (<1.2) APTT 25.7 (22.0-30.0) sec Sodium (137-145) mmol/L Potassium (3.5-5.1) mmol/L Chloride (98-107) mmol/L Carbon Dioxide (22-30) mmol/L Anion Gap mmol/L BUN (7-17) mg/dL Creatinine (0.52-1.04) mg/dL Est GFR (CKD-EPI)AfAm (>60 ml/min/1.73 sqM) Est GFR (CKD-EPI)NonAf (>60 ml/min/1.73 sqM) Glucose (74-99) mg/dL POC Glucose (mg/dL) 100 (70-110) mg/dL POC Glu Weathercaster ID Vero Mistry Calcium (8.4-10.2) mg/dL Total Bilirubin (0.2-1.3) mg/dL AST (14-36) U/L ALT (4-34) U/L Alkaline Phosphatase (38-126) U/L Creatine Kinase (30-135) U/L Total Protein (6.3-8.2) g/dL Albumin (3.5-5.0) g/dL 10/24/23 Range/Units 12:43 WBC (3.8-10.6) k/uL RBC (3.80-5.40) m/uL Hgb (11.4-16.0) gm/dL Hct (34.0-46.0) % MCV (80.0-100.0) fL MCH (25.0-35.0) pg MCHC (31.0-37.0) g/dL RDW (11.5-15.5) % Plt Count (150-450) k/uL MPV Neutrophils % % Lymphocytes % % Monocytes % % Eosinophils % % Basophils % % Neutrophils # (1.3-7.7) k/uL Lymphocytes # (1.0-4.8) k/uL Monocytes # (0-1.0) k/uL Eosinophils # (0-0.7) k/uL Basophils # (0-0.2) k/uL PT (10.0-12.5) sec INR (<1.2) APTT (22.0-30.0) sec Sodium 143 (137-145) mmol/L Potassium 3.7 (3.5-5.1) mmol/L Chloride 106 (98-107) mmol/L Carbon Dioxide 30 (22-30) mmol/L Anion Gap 7 mmol/L BUN 3 L (7-17) mg/dL Creatinine 0.39 L (0.52-1.04) mg/dL Est GFR (CKD-EPI)AfAm >90 (>60 ml/min/1.73 sqM) Est GFR (CKD-EPI)NonAf >90 (>60 ml/min/1.73 sqM) Glucose 89 (74-99) mg/dL POC Glucose (mg/dL) (70-110) mg/dL POC Glu Weathercaster ID Calcium 9.3 (8.4-10.2) mg/dL Total Bilirubin 0.5 (0.2-1.3) mg/dL AST 22 (14-36) U/L ALT 10 (4-34) U/L Alkaline Phosphatase 95 (38-126) U/L Creatine Kinase 64 (30-135) U/L Total Protein 7.1 (6.3-8.2) g/dL Albumin 4.7 (3.5-5.0) g/dL Critical Care Time Critical Care Time: Yes Disposition Clinical Impression: Cerebrovascular accident (CVA) Disposition: ADMITTED IP TO THIS HOSP Is patient prescribed a controlled substance at d/c from ED?: No Referrals: Nona Trent MD [Primary Care Provider] - 1-2 days Time of Disposition: 13:36
--- NOTE | 2023-10-24 12:46 | CT ---
EXAMINATION TYPE: CT brain wo con DATE OF EXAM: 10/24/2023 COMPARISON: 11/18/2022 HISTORY: 68-year-old female neurologic deficit, acute, stroke suspected TECHNIQUE: Examination was done in axial plane without intravenous contrast. Coronal and sagittal r econstructions performed. CT DLP: 1107.7 mGycm Automated exposure control for dose reduction was used. FINDINGS: There is no evidence of acute intracranial hemorrhage, acute ischemic changes, mass, mass-effect, or extra-axial fluid collection. There is no effacement of cerebral sulci or basal subarachnoid cister ns. There is no hydrocephalus. There is no midline shift. Kendall-white matter distinction is preserv ed. Mild patchy hypodensity in both cerebral hemispheres. Paranasal sinuses and mastoid air cells well pneumatized. Orbits and globes are intact. Slight leftwa rd nasal septal deviation. IMPRESSION: Mild patchy burden of chronic small vessel ischemic disease. No acute intracranial abnormality seen.
[2023-10-24 12:56] LABS: Basophils % (A) 1 %; Eosinophils # (A) 0.1 k/uL (0-0.7); Eosinophils % (A) 2 %; HCT 43.5 % (34.0-46.0); HGB 14.4 gm/dL (11.4-16.0); Lymphocytes # (A) 1.3 k/uL (1.0-4.8); Lymphocytes % (A) 24 %; MCH 30.4 pg (25.0-35.0); MCV 92.1 fL (80.0-100.0); Mean Platelet Volume 7.2; Monocytes # (A) 0.3 k/uL (0-1.0); Monocytes % (A) 5 %; Neutrophils # (A) 3.7 k/uL (1.3-7.7); Neutrophils % (A) 67 %; Platelet Count 242 k/uL (150-450); RBC 4.72 m/uL (3.80-5.40); RDW 12.6 % (11.5-15.5); WBC 5.6 k/uL (3.8-10.6)
--- NOTE | 2023-10-24 13:01 | CT ---
EXAMINATION TYPE: CT angio head neck DATE OF EXAM: 10/24/2023 COMPARISON: Brain same day HISTORY: 68-year-old female neurologic deficit, acute, stroke suspected cva TECHNIQUE: Contiguous axial scanning of the head and neck performed with IV Contrast, patient injecte d with 65cc mL of Isovue 370. Coronal/sagittal reconstructions performed. 3-D reconstructions generat ed on a dedicated independent workstation. CT DLP: 302.7 mGycm Automated exposure control for dose reduction was used. FINDINGS: Neck: Prominent biapical pleural-parenchymal scarring. Moderate emphysematous change. Conventional vessel branching anatomy. Circumferential atherosclerotic plaque proximal left subclavia n artery with only minimal narrowing. The bilateral vertebral arteries are codominant and patent throughout their course. There is minimal atherosclerotic change of the bilateral carotid bifurcations. No significant narrowi ng of either common or internal carotid arteries. NASCET criteria was utilized. Head: The bilateral vertebral and basilar arteries as well as the remainder of the posterior circulation is patent. The dural venous sinuses are patent. The internal carotid arteries are widely patent with minimal scattered vascular calcifications. Remai nder of the anterior circulation is patent. IMPRESSION: NECK: 1. WIDELY PATENT CAROTID AND VERTEBRAL ARTERIES OF THE NECK. 2. COPD WITH MODERATE EMPHYSEMA IN THE VISUALIZED UPPER LUNGS. HEAD: 3. NO LARGE VESSEL INTRACRANIAL ARTERIAL OCCLUSION, SIGNIFICANT STENOSIS, OR ANEURYSMAL CHANGE IS SEE N.
[2023-10-24 13:04] LABS: Partial Thromboplastin Time 25.7 sec (22.0-30.0); Prothrombin Time 10.8 sec (10.0-12.5)
--- NOTE | 2023-10-24 13:13 | XR ---
EXAMINATION TYPE: XR chest 2V DATE OF EXAM: 10/24/2023 COMPARISON: 03/18/2022 HISTORY: 68-year-old female confusion, altered mental status TECHNIQUE: AP and lateral views FINDINGS: Heart borderline to mildly enlarged. Hyperinflation. Interstitial prominence is unchanged. No consoli dation or pleural effusion. Dextroconvex curvature of the spine. IMPRESSION: Borderline to mild cardiomegaly and COPD. Chronic changes. No acute process seen.
[2023-10-24 13:28] LABS: ALT 10 U/L (4-34); AST 22 U/L (14-36); African American GFR (CKD) >90 (>60 ml/min/1.73 sqM); Albumin 4.7 g/dL (3.5-5.0); Alkaline Phosphatase 95 U/L (38-126); Anion Gap 7 mmol/L; Blood Urea Nitrogen 3 mg/dL (7-17); Calcium 9.3 mg/dL (8.4-10.2); Carbon Dioxide 30 mmol/L (22-30); Chloride 106 mmol/L (98-107); Creatine Kinase 64 U/L (30-135); Glucose 89 mg/dL (74-99); Non-African American GFR(CKD) >90 (>60 ml/min/1.73 sqM); Potassium 3.7 mmol/L (3.5-5.1); Sodium 143 mmol/L (137-145); Total Bilirubin 0.5 mg/dL (0.2-1.3); Total Protein 7.1 g/dL (6.3-8.2)
[2023-10-24] MEDS: ATORVASTATIN 40 MG TAB PO SCH (14:15)
[2023-10-24] MEDS: ASPIRIN 325 MG TAB PO STA (14:15)
[2023-10-24] MEDS: SODIUM CHLORIDE 0.9% 1,000 ML IV SCH (14:15)
--- NOTE | 2023-10-24 15:14 | P.HPIM ---
History of Present Illness H&P Date: 10/24/23 History of Presenting Illness: Patient is a very pleasant 68-year-old female with a past medical history of hyperlipidemia, hypertension, hypothyroidism, anxiety, depression, PTSD, reports of multiple concussions, and nicotine dependence. She presented to the emergency department with a chief complaint right-sided weakness, facial droop, aphasia and dysphagia. Patient reported she first noticed the symptoms around 10 PM last night and noticed she had some right-sided weakness with difficulty walking, speaking and right-sided facial droop. Patient reports she thought the symptoms would just go away because she has had them happen in the past but only lasted a few moments before resolving. She states that she went to bed and awakening this morning upon the symptoms persisted so she told her she needed to come to the hospital. Patient denies having any headache, lightheadedness, dizziness, changes in vision or hearing, chest pain, pa lpitations, shortness of breath, cough or congestion, abdominal pain, nausea/vomiting, recent fever, chills, or infection, or experiencing any difficulties with or changes in her urinary or bowel function. Upon arrival to our facility patient underwent evaluation in the emergency department. Vital signs showing blood pressure 134/73, heart rate 70, respiratory rate 18, temp 97.5 F, and SpO2 of 92% on room air. Blood glucose 100. CT brain showing mild patchy burden of chronic small vessel ischemic disease, but negative for acute intracranial abnormality. EKG showing sinus rhythm at 62 bpm with T wave inversion in inferior leads II and aVF and occasional PVCs. Was completed and reviewed. CBC and coagulation profile normal findings. BMP unremarkable. Liver profile showing normal findings. CTA head and neck were completed. CTA neck showing widely patent carotid and vertebral arteries of the neck with COPD with moderate emphysema visualized in the upper lungs. CTA head showing no large vessel intracranial arterial occlusion, no significant stenosis or aneurysmal change reported. NIH upon arrival to hospital was reported to be 3. Patient is not a candidate for TNKase secondary to reported onset of symptoms being at 10 PM on 10/23/2023. Patient was given aspirin 325 mg p.o. x 1 dose and admitted under our services with consultation to neurology. Review of systems: Pertinent positives and negatives as discussed in HPI, a complete review of systems was performed and all other systems are negative. Physical exam: Vital signs reviewed and stable. General: Nontoxic, no distress and appears stated age. Derm: Skin warm and dry, normal coloration for ethnicity. Head: Atraumatic, normocephalic and symmetric. Eyes: EOMs intact, no lid lag, and anicteric sclera Mouth: no lip lesions, mucus membranes moist. Right-sided facial droop noted. Cardiovascular: regular rate and rhythm with normal S1S2, systolic murmur, systolic positive posterior tibial pulses bilaterally, and cap refill < 2 seconds. Lungs: Respirations even, regular, and unlabored on room air. Lungs CTA bilaterally, no rhonchi, no rales, no wheezing, and no accessory muscle usage. Abdominal: soft, nontender to palpation, no guarding, no appreciable organomegaly Ext: No gross muscle atrophy, no edema, no contractures. Movement and sensation intact. Patient with mild right hand weakness noted on assessment. No arm drop. Neuro: Mild aphasia noted, right-sided facial droop present. GCS 15. Psych: Alert and oriented to person, place, time, and situation. Flat affect. Assessment and Plan of Care: Right-sided weakness, aphasia, and facial droop, likely acute ischemic CVA Dysphagia Hyperlipidemia Hypertension Hypothyroidism History of multiple concussions -Consult neurology, appreciate recommendations. -Order placed for MRI brain without contrast -Echocardiogram -TSH, Lipid profile, and Hgb A1c be obtained. Patient reports history of hypertension, hyperlipidemia, and hypothyroidism but no longer on medications. -NIH stroke scale with neuro checks every 4 hours and as needed -Patient started on dual antiplatelet therapy with aspirin 81 mg daily and Plavix 75 mg daily along with atorvastatin 40 mg daily. -Allow for permissive hypertension over next 24 hours. -PT/OT consulted -Order placed for nursing bedside swallow exam, patient to remain n.p.o. pending these results. If patient passes bedside swallow may advance diet as patient tolerates to heart healthy diet if patient swallows nursing bedside swallow examination to remain n.p.o. pending evaluation by speech and language pathologist. -Consult to speech and language pathologist -Fall precautions and provide pt with assistance as needed Nicotine dependence Recommend smoking cessation. Order placed for nicotine patch 21 mg daily. Anxiety with depression PTSD Continue Klonopin 1 mg twice daily as needed for anxiety along with scheduled Seroquel 100 mg nightly and Zoloft 100 mg daily. Data and imaging reviewed: As stated above in HPI. The patient is admitted with an anticipated greater than 2 midnight stay for evaluation of acute ischemic CVA. CODE STATUS: Full code DVT prophylaxis: Lovenox Anticipated discharge date: Pending clinical course Anticipated discharge place: Pending clinical course Patient was seen independently by Nurse Practitioner. This document was prepared using [employer] dictation software. Please allow for errors in shipping clerk while rare they do occur. Junior Jorge UPHOLSTERY INSTRUCTOR rendered care for this patient independently, reviewed the findings and plan as documented in the note above. I did not physically speak with or examine the patient on this date. Past Medical History Past Medical History: Hyperlipidemia, Hypertension, Thyroid Disorder Additional Past Medical History / Comment(s): Possible Alzheimers History of Any Multi-Drug Resistant Organisms: None Reported Past Surgical History: Section Past Anesthesia/Blood Transfusion Reactions: Postoperative Nausea & Vomiting (PONV) Past Psychological History: Depression, PTSD Smoking Status: Current every day smoker Past Alcohol Use History: None Reported Past Drug Use History: None Reported - Past Family History Mother Family Medical History: Coronary Artery Disease (CAD) Medications and Allergies Home Medications Medication Instructions Recorded Confirmed Type QUEtiapine FUMARATE 100 mg PO HS 03/25/22 10/24/23 History Sertraline [Zoloft] 100 mg PO DAILY 03/25/22 10/24/23 History clonazePAM [KlonoPIN] 1 mg PO BID PRN 10/24/23 10/24/23 History Allergies Allergy/AdvReac Type Severity Reaction Status Date / Time amoxicillin Allergy Unknown Verified 10/24/23 13:24 Childhood Physical Exam Vitals: Vital Signs Temp Pulse Resp BP Pulse Ox 10/24/23 13:13 61 20 124/74 96 10/24/23 11:57 97.5 F L 70 18 134/73 92 L Intake and Output 10/23/23 10/24/23 10/24/23 22:59 06:59 14:59 Other: Weight 52.617 kg Results CBC & Chem 7: 10/24/23 12:43 10/24/23 12:43 Labs: Abnormal Lab Results - Last 24 Hours (Table) 10/24/23 Range/Units 12:43 BUN 3 L (7-17) mg/dL Creatinine 0.39 L (0.52-1.04) mg/dL
[2023-10-24] MEDS: CLOPIDOGREL 75 MG TAB PO STA (16:25)
[2023-10-24] MEDS: NICOTINE 21MG/24HR PATCH TRANSDERM SCH (16:49)
--- NOTE | 2023-10-24 19:44 | CA ---
Transthoracic Echo Report Name: Lucila Peguero Age: 68 Gender: F : 1955 Exam Date: 10/24/2023 14:38 Exam Location: [facility] Ht (in): 64 Wt (lb): 116 Ordering Physician: Po Campbell DO Attending/Referring Phys: Occupational Medicine Physician Alicia Salgado RDCS Procedure CPT: Indications: Thrombus Cardiac Hx: Technical Quality: Good Contrast 1: Total Dose (mL): Contrast 2: Total Dose (mL): MEASUREMENTS (Male / Female) Normal Values 2D ECHO LV Diastolic Diameter PLAX 5.0 cm 4.2 - 5.9 / 3.9 - 5.3 cm LV Systolic Diameter PLAX 3.3 cm IVS Diastolic Thickness 0.7 cm 0.6 - 1.0 / 0.6 - 0.9 cm LVPW Diastolic Thickness 0.8 cm 0.6 - 1.0 / 0.6 - 0.9 cm LV Relative Wall Thickness 0.3 LVOT Diameter 2.0 cm LV Diastolic Volume MOD BP 83.4 cm??? 67 - 155 / 56 - 104 cm??? LV Systolic Volume MOD BP 29.4 cm??? 22 - 58 / 19 - 49 cm??? LV Ejection Fraction MOD BP 64.8 % >= 55 % LV Cardiac Index MOD BP 2000.7 cm???/min???m??? LV Diastolic Volume MOD 4C 86.7 cm??? LV Systolic Volume MOD 4C 29.9 cm??? LV Ejection Fraction MOD 4C 65.5 % LV Cardiac Index MOD 4C 2104.2 cm???/min???m??? LV Diastolic Length 4C 7.5 cm LV Systolic Length 4C 6.0 cm LV Diastolic Volume MOD 2C 78.3 cm??? LV Systolic Volume MOD 2C 29.1 cm??? LV Ejection Fraction MOD 2C 62.8 % LV Cardiac Index MOD 2C 1823.6 cm???/min???m??? LV Diastolic Length 2C 7.3 cm LV Systolic Length 2C 6.0 cm LA Volume 43.7 cm??? 18 - 58 / 22 - 52 cm??? LA Volume Index 28.4 cm???/m??? 16 - 28 cm???/m??? DOPPLER AV Peak Velocity 125.0 cm/s AV Peak Gradient 6.3 mmHg AV Mean Velocity 88.1 cm/s AV Mean Gradient 3.4 mmHg AV Velocity Time Integral 29.7 cm LVOT Peak Velocity 93.8 cm/s LVOT Peak Gradient 3.5 mmHg LVOT Velocity Time Integral 21.5 cm LVOT Stroke Volume 65.1 cm??? LVOT Stroke Volume Index 41.9 ml/m??? LVOT Cardiac Index 2411.3 cm???/min???m??? AV Area Cont Eq vti 2.2 cm??? AV Area Cont Eq pk 2.3 cm??? MV Area PHT 3.5 cm??? Mitral E Point Velocity 54.6 cm/s Mitral A Point Velocity 52.0 cm/s Mitral E to A Ratio 1.0 MV Deceleration Time 216.1 ms TR Peak Velocity 276.3 cm/s TR Peak Gradient 30.5 mmHg Right Atrial Pressure 5.0 mmHg Pulmonary Artery Systolic Pressu 35.5 mmHg Right Ventricular Systolic Press 35.5 mmHg PV Peak Velocity 76.6 cm/s PV Peak Gradient 2.3 mmHg FINDINGS Left Ventricle Left ventricular ejection fraction is estimated at 60-65 %. Left ventricular cavity size normal. Left ventricular wall thickness normal. No obvious regional wall motion abnormalities. Negative bubble study. Right Ventricle Normal right ventricular size and function. Borderline elevated right ventricular systolic pressure. Right Atrium Normal right atrial size. Left Atrium Normal left atrial size. Mitral Valve Structurally normal mitral valve. No evidence for mitral valve prolapse. No mitral stenosis. Trace mitral regurgitation. Aortic Valve Trileaflet aortic valve. No aortic valve stenosis or regurgitation. Tricuspid Valve Structurally normal tricuspid valve. No tricuspid stenosis. Trace to mild tricuspid regurgitation. Pulmonic Valve Structurally normal pulmonic valve. No pulmonic stenosis. No pulmonic regurgitation. Pericardium No pericardial effusion. Aorta Normal size aortic root and proximal ascending aorta. CONCLUSIONS Diagnosis: CVA, evaluate for intracardiac mass Preserved LV systolic function Normal RV size and function No intracardiac masses No right-left shunting at the atrial level Previewed by: Dr. Ilan Dixon MD (Electronically Signed) Final Date: 24 October 2023 19:43
[2023-10-24] MEDS: clonazePAM 1 MG TAB PO PRN (21:48)
[2023-10-24] MEDS: QUEtiapine 100 MG TAB PO SCH (21:48)
[2023-10-25 08:24] LABS: HCT 39.7 % (34.0-46.0); MCH 30.4 pg (25.0-35.0); MCHC 32.7 g/dL (31.0-37.0); MCV 93.1 fL (80.0-100.0); Mean Platelet Volume 7.3; Platelet Count 201 k/uL (150-450); RBC 4.26 m/uL (3.80-5.40); RDW 12.8 % (11.5-15.5); WBC 3.9 k/uL (3.8-10.6)
[2023-10-25 08:37] LABS: ALT 9 U/L (4-34); AST 20 U/L (14-36); African American GFR (CKD) >90 (>60 ml/min/1.73 sqM); Albumin 3.9 g/dL (3.5-5.0); Alkaline Phosphatase 78 U/L (38-126); Anion Gap 4 mmol/L; Blood Urea Nitrogen 2 mg/dL (7-17); Calcium 8.8 mg/dL (8.4-10.2); Carbon Dioxide 27 mmol/L (22-30); Chloride 110 mmol/L (98-107); Glucose 111 mg/dL (74-99); Magnesium 1.9 mg/dL (1.6-2.3); Non-African American GFR(CKD) >90 (>60 ml/min/1.73 sqM); Potassium 3.6 mmol/L (3.5-5.1); Sodium 141 mmol/L (137-145); Total Bilirubin 0.6 mg/dL (0.2-1.3); Total Protein 6.1 g/dL (6.3-8.2)
[2023-10-25] MEDS ORDERED: ASPIRIN 325 MG TAB PO SCH (09:00)
[2023-10-25] MEDS: ENOXAPARIN 40 MG/0.4 ML SYRINGE SQ SCH (09:45)
[2023-10-25] MEDS: ASPIRIN 81 MG PO SCH (09:45)
[2023-10-25] MEDS: SERTRALINE 100 MG TAB PO SCH (09:45)
[2023-10-25] MEDS: CLOPIDOGREL 75 MG TAB PO SCH (09:45)
[2023-10-25 11:14] VITALS: RESP 18
--- NOTE | 2023-10-25 13:52 | P.CNNES ---
History of Present Illness Consult date: 10/25/23 Requesting physician: Po Campbell Reason for Consult: cva History of Present Illness: This is a 68-year-old woman who presented emergency department because of right- sided weakness, facial droop speech difficulty. She stated that her symptoms began 2 days ago and it began around 10 PM and she initially noticed that she could not talk and had right-sided weakness and could not walk. Patient denies any history of stroke or TIAs. She denies a history of A-fib or flutter. She stated that she is supposed to be on aspirin at home as well as Crestor but she is not compliant taking medication. She feels her symptoms are improving today compared to yesterday. Presentation to hospital patient NIH stroke scale was a 3. No IV thrombolytic since outside the window and the risk outweigh the benefit. some of the work-up during this hospital visit consisted of: Initial serum glucose is 89 TSH is 2.250 Hemoglobin A1c is 5.3. CT of the head is reported as mild patchy burden of chronic small vessel ischemic disease. No acute intracranial abnormality seen. Personally reviewed the CT and I agree there is no acute or subacute ischemic stroke. CT angiography of the head is reported as no large vessel intracranial arterial occlusion, significant stenosis or aneurysmal change is seen. CT angiography of the neck is reported as widely patent carotid and vertebral artery of the neck. 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 2D echo was reported as preserved left ventricle systolic function. Normal right ventricular size and function. No intracardiac masses. No right left shunting of the atrial level Review of Systems Positive and negative as per HPI Past Medical History Past Medical History: Hyperlipidemia, Hypertension, Thyroid Disorder Additional Past Medical History / Comment(s): Possible Alzheimers History of Any Multi-Drug Resistant Organisms: None Reported Past Surgical History: Section Past Anesthesia/Blood Transfusion Reactions: Postoperative Nausea & Vomiting (PONV) Past Psychological History: Depression, PTSD Smoking Status: Current every day smoker Past Alcohol Use History: None Reported Additional Past Alcohol Use History / Comment(s): 6-7 cigarettes a day Past Drug Use History: None Reported - Past Family History Mother Family Medical History: Coronary Artery Disease (CAD) Medications and Allergies Home Medications Medication Instructions Recorded Confirmed Type QUEtiapine FUMARATE 100 mg PO HS 03/25/22 10/24/23 History Sertraline [Zoloft] 100 mg PO DAILY 03/25/22 10/24/23 History clonazePAM [KlonoPIN] 1 mg PO BID PRN 10/24/23 10/24/23 History Allergies Allergy/AdvReac Type Severity Reaction Status Date / Time amoxicillin Allergy Unknown Verified 10/24/23 13:24 Childhood Physical Examination - Vital Signs Vital Signs: Vital Signs Temp Pulse Pulse Resp BP BP Pulse Ox 10/25/23 08:00 97.5 F L 58 L 18 132/82 94 L 10/25/23 03:36 97.8 F 58 L 17 122/58 93 L 10/24/23 23:13 97.8 F 61 17 127/58 92 L 10/24/23 20:55 97.8 F 56 L 17 131/64 93 L 10/24/23 19:40 57 L 20 143/81 93 L Intake and Output 10/24/23 10/25/23 10/25/23 22:59 06:59 14:59 Intake Total 240 Balance 240 Intake: Oral 240 Other: Voiding Method Toilet Toilet Toilet # Voids 1 1 1 Weight 52.617 kg 53.3 kg GENERAL: The patient is lying in bed and is not in acute distress. NEUROLOGICAL: Higher mental function: The patient is awake, alert, oriented to self, place and time. Patient is following commands. No aphasia and no neglect. Cranial nerves: The pupils are round, equal and reactive to light and accommodation. Visual danielson are full to confrontation throughout. Extraocular movement is intact no nystagmus is noted. Facial sensation is normal to touch throughout. Has mild to moderate right lower facial weakness. Hearing is mildly decreased bilaterally to hand rub. Tongue is midline and moved [id number] without any difficulty. No dysarthria is noted. Shoulder shrug is normal bilaterally. Motor: The strength is 5 over 5 throughout. Normal tone and bulk. Cerebellum: Normal finger to nose bilaterally. Sensation: Sensation is normal to touch throughout. Reflexes (right/left): 2+ throughout. Plantars are downgoing bilaterally. Results - Laboratory Findings CBC and BMP: 10/25/23 08:05 10/25/23 08:05 Abnormal Lab Findings: Abnormal Labs 10/24/23 10/25/23 12:43 08:05 Chloride 110 H BUN 3 L 2 L Creatinine 0.39 L 0.37 L Glucose 111 H Total Protein 6.1 L Assessment and Plan Assessment: This is a 68-year-old woman who present emergency department because of right- sided weakness, right facial weakness and speech difficulty that started 2 days ago around 10 PM. Initial NIH stroke scale in the ED was at 3. Her symptoms is improving but continues to have right facial weakness. No IV thrombolytic since outside the window and the risk outweigh the benefit. Acute ischemic stroke (presented with right-sided weakness, expressive aphasia, right facial droop. Symptoms is improving but continues to have right lower facial weakness). Underlying history of hypertension Hyperlipidemia Hypothyroidism Medication noncompliance Plan: Patient states that she supposed to be on aspirin at home but is not taking it patient started on aspirin 81 mg daily. She was also started on Plavix 75 mg daily. She was given aspirin 325 once in the ED. She is on Lipitor 40 mg daily and that sufficient for secondary stroke prophylaxis Pending MRI of the brain and lipid panel Continue neurochecks Cardiac monitoring PT OT and BRANNER MACHINE TENDER are consulted Defer the rest of the medical management to primary team. DVT prophylaxis the patient is on Lovenox Plan discussed with the patient and primary team's nurse practitioner. Thank you for the consultation Time with Patient: Greater than 30
--- NOTE | 2023-10-25 14:34 | P.PN ---
Subjective Progress Note Date: 10/25/23 Hospital Course: Patient is a very pleasant 68-year-old female with a past medical history of hyperlipidemia, hypertension, hypothyroidism, anxiety, depression, PTSD, reports of multiple concussions, and nicotine dependence. She presented to the emergency department with a chief complaint right-sided weakness, facial droop, aphasia and dysphagia. Patient reported she first noticed the symptoms around 10 PM last night and noticed she had some right-sided weakness with difficulty walking, speaking and right-sided facial droop. Patient reports she thought the symptoms would just go away because she has had them happen in the past but only lasted a few moments before resolving. She states that she went to bed and awakening this morning upon the symptoms persisted so she told her she needed to come to the hospital. Patient denies having any headache, lightheadedness, dizziness, changes in vision or hearing, chest pain, palpitations, shortness of breath, cough or congestion, abdominal pain, nausea/vomiting, recent fever, chills, or infection, or experiencing any difficulties with or changes in her urinary or bowel function. Upon arrival to our facility patient underwent evaluation in the emergency department. Vital signs showing blood pressure 134/73, heart rate 70, respiratory rate 18, temp 97.5 F, and SpO2 of 92% on room air. Blood glucose 100. CT brain showing mild patchy burden of chronic small vessel ischemic disease, but negative for acute intracranial abnormality. EKG showing sinus rhythm at 62 bpm with T wave inversion in inferior leads II and aVF and occasional PVCs. Was completed and reviewed. CBC and coagulation profile normal findings. BMP unremarkable. Liver profile showing normal findings. CTA head and neck were completed. CTA neck showing widely patent carotid and vertebral arteries of the neck with COPD with moderate emphysema visualized in the upper lungs. CTA head showing no large vessel intracranial arterial occlusion, no significant stenosis or aneurysmal change reported. NIH upon arrival to hospital was reported to be 3. Patient is not a candidate for TNKase secondary to reported onset of symptoms being at 10 PM on 10/23/2023. Patient was given aspirin 325 mg p.o. x 1 dose and admitted under our services with consultation to neurology. Physical exam: Patient was seen and fully evaluated at bedside this morning. She reports strength in right upper extremities and denies having any weakness/tingling/numbness in her extremities. Her speech remains occasionally aphasic, has improved significantly compared to yesterday. Facial droop remains present but slightly improved. Patient continues to deny headache, lightheadedness, changes in vision or hearing, chest pain or palpitations, or shortness of breath at this time. She reports dysphagia has significantly improved. Vital signs reviewed and stable. General: Nontoxic, no distress and appears stated age. Derm: Skin warm and dry, normal coloration for ethnicity. Head: Atraumatic, normocephalic and symmetric. Eyes: EOMs intact, no lid lag, and anicteric sclera Mouth: no lip lesions, mucus membranes moist. Right-sided facial droop noted. Cardiovascular: regular rate and rhythm with normal S1S2, systolic murmur, systolic positive posterior tibial pulses bilaterally, and cap refill < 2 seconds. Lungs: Respirations even, regular, and unlabored on room air. Lungs CTA bilaterally, no rhonchi, no rales, no wheezing, and no accessory muscle usage. Abdominal: soft, nontender to palpation, no guarding, no appreciable organom egaly Ext: No gross muscle atrophy, no edema, no contractures. Movement and sensation intact. No arm drop. Neuro: Mild aphasia noted, right-sided facial droop present. GCS 15. Psych: Alert and oriented to person, place, time, and situation. Flat affect. 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 Miller. -Order placed for MRI brain without contrast -Echocardiogram completed showing preserved EF of 60 to 65% no right to left shunting and no significant valvular or structural abnormalities reported. -TSH 2.250. Hgb A1c 5.3%.. Lipid profile pending. -NIH stroke scale with neuro checks every 4 hours and as needed -Continue dual antiplatelet therapy with aspirin 81 mg daily and Plavix 75 mg daily along with atorvastatin 40 mg daily. -PT/OT consulted -Consult to speech and language pathologist -Fall precautions and provide pt with assistance as needed Nicotine dependence Recommend smoking cessation. Order placed for nicotine patch 21 mg daily. Anxiety with depression PTSD Continue Klonopin 1 mg twice daily as needed for anxiety along with scheduled Seroquel 100 mg nightly and Zoloft 100 mg daily. Data and imaging reviewed: -Echocardiogram completed showing preserved EF of 60 to 65% no right to left shunting and no significant valvular or structural abnormalities reported. -TSH 2.250. Hgb A1c 5.3%.. Lipid profile pending. -Morning labs completed and reviewed. CBC unremarkable. BMP showing mild hyperchloremia with chloride of 110. Blood glucose 111. Liver profile unremarkable. Creatinine kinase was 64. -Vital signs reviewed. Blood pressure 132/82, heart rate 58, respiratory rate 18, temp 97.5 F, and SpO2 of 94% on room air. CODE STATUS: Full code DVT prophylaxis: Lovenox Anticipated discharge date: Pending clinical course Anticipated discharge place: Pending clinical course Patient was seen independently by Nurse Practitioner. This document was prepared using [employer] dictation software. Please allow for errors in purse framer while rare they do occur. Junior Jorge NP rendered care for this patient independently, reviewed the findings and plan as documented in the note above. I did not physically speak with or examine the patient on this date Objective - Vital Signs Vital signs: Vital Signs Temp 97.8 F 10/25/23 03:36 Pulse 58 L 10/25/23 03:36 Resp 17 10/25/23 03:36 BP 122/58 10/25/23 03:36 Pulse Ox 93 L 10/25/23 03:36 FiO2 Intake & Output 10/24/23 10/25/23 10/25/23 18:59 06:59 18:59 Intake Total 240 Balance 240 Weight 52.617 kg 53.3 kg Intake: Oral 240 Other: Voiding Method Toilet # Voids 1 - Labs CBC & Chem 7: 10/25/23 08:05 10/25/23 08:05 Labs: Abnormal Lab Results - Last 24 Hours (Table) 10/24/23 Range/Units 12:43 BUN 3 L (7-17) mg/dL Creatinine 0.39 L (0.52-1.04) mg/dL
--- NOTE | 2023-10-25 16:07 | MR ---
EXAMINATION TYPE: MR brain wo con DATE OF EXAM: 10/25/2023 3:30 PM CLINICAL INDICATION:Female, 68 years old with history of CVA; PHH, CVA COMPARISON: 10/24/2023. TECHNIQUE: Multi planar, multi sequence imaging was performed through the brain including: T1, T2, In version recovery, Diffusion weighted imaging, and gradient echo imaging. No gadolinium was given. FINDINGS: Restricted diffusion within the left posterior limb of the internal capsule/thalamus. The haile-white junctions, ventricular system, basal cisterns appear unremarkable. Scattered foci of high T2 signal intensity are seen within the periventricular white matter. Midline structures show n o abnormality. The susceptibility weighted images do not reveal any evidence for micro-hemorrhage. The bone marrow signal is within normal limits. Paranasal sinuses and mastoid air cells: No significant paranasal sinus disease. Visualized orbits: Bilateral aphakia IMPRESSION: Acute/subacute CVA involving the left thalamus/posterior limb of the internal capsule. MRI
[2023-10-25 16:37] LABS: Chol/HDL Ratio 5.75 Ratio; LDL Cholesterol,Calculated 193.9 mg/dL (0.0-131.0)
[2023-10-26 11:29] VITALS: TEMP 97.5
--- NOTE | 2023-10-26 13:07 | P.PN ---
Subjective Progress Note Date: 10/26/23 I am following-up with patient and she feels about the same. Denies any new neurological issues. Objective - Vital Signs Vital signs: Vital Signs Temp 97.5 F L 10/26/23 08:00 Pulse 74 10/26/23 08:00 Resp 18 10/26/23 08:00 BP 137/85 10/26/23 08:00 Pulse Ox 94 L 10/26/23 08:00 FiO2 Intake & Output 10/25/23 10/26/23 10/26/23 18:59 06:59 18:59 Intake Total 720 Balance 720 Weight 50.9 kg Intake: Oral 720 Other: Voiding Method Toilet Toilet Toilet # Voids 1 1 3 - Exam GENERAL: The patient is lying in bed and is not in acute distress. NEUROLOGICAL: Higher mental function: The patient is awake, alert, oriented to self, place and time. Patient is following commands. No aphasia and no neglect. Cranial nerves: The pupils are round, equal and reactive to light and accommodation. Visual danielson are full to confrontation throughout. Extraocular movement is intact no nystagmus is noted. Facial sensation is normal to touch throughout. Has mild to moderate right lower facial weakness. Hearing is mildly decreased bilaterally to hand rub. Tongue is midline and moved [id number] without any difficulty. No dysarthria is noted. Shoulder shrug is normal bilaterally. Motor: The strength is 5 over 5 throughout. Normal tone and bulk. Cerebellum: Normal finger to nose bilaterally. Sensation: Sensation is normal to touch throughout. Reflexes (right/left): 2+ throughout. Plantars are downgoing bilaterally. some of the work-up during this hospital visit consisted of: Initial serum glucose is 89 TSH is 2.250 Hemoglobin A1c is 5.3. Lipid panel: TG 92, cholestrol 257, LDL [address] of the head is reported as mild patchy burden of chronic small vessel ischemic disease. No acute intracranial abnormality seen. Personally reviewed the CT and I agree there is no acute or subacute ischemic stroke. CT angiography of the head is reported as no large vessel intracranial arterial occlusion, significant stenosis or aneurysmal change is seen. CT angiography of the neck is reported as widely patent carotid and vertebral artery of the neck. 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 2D echo was reported as preserved left ventricle systolic function. Normal right ventricular size and function. No intracardiac masses. No right left shunting of the atrial level MRI Brain: Acute/subacute cva involving left thalamus/posterior limb of internal capsule. - Labs CBC & Chem 7: 10/25/23 08:05 10/25/23 08:05 Labs: Abnormal Lab Results - Last 24 Hours (Table) 10/25/23 Range/Units 08:05 Cholesterol 257.00 H (0.00-200.00) mg/dL LDL Cholesterol, Calc 193.9 H (0.0-131.0) mg/dL Assessment and Plan Assessment: This is a 68-year-old woman who present emergency department because of right- sided weakness, right facial weakness and speech difficulty that started 2 days ago around 10 PM. Initial NIH stroke scale in the ED was at 3. Her symptoms is improving but continues to have right facial weakness. No IV thrombolytic since outside the window and the risk outweigh the benefit. Acute ischemic stroke over the left posterior limb internal capsule/thalamus (presented with right-sided weakness, expressive aphasia, right facial droop. Symptoms is improving but continues to have right lower facial weakness). Etiology of stroke is her risk factors (HTN, hyperlipidemia, age, sex and medication noncompliance) Underlying history of hypertension Hyperlipidemia Hypothyroidism Medication noncompliance Plan: Patient states that she supposed to be on aspirin at home but is not taking it patient started on aspirin 81 mg daily. She was also started on Plavix 75 mg daily. Recommend dual antiplatelets for 21 days (ASA and Plavix) then after 21 days stop Plavix but continue ASA indefinitely. She is on Lipitor 40 mg daily and that sufficient for secondary stroke prophylaxis. LDL goal in stroke <70. Continue neurochecks Cardiac monitoring PT OT and WAREHOUSE GUARD are consulted Patient was counseled on medication compliance. Defer the rest of the medical management to primary team. DVT prophylaxis the patient is on Lovenox Upon discharge, recommend the patient to follow-up with neurologist as outpatient within 1-2 weeks. Plan discussed with the patient and primary team's nurse practitioner. There is no further neurological work-up. Will sign off. Please reconsult if needed. Time with Patient: Less than 30
--- NOTE | 2023-10-26 13:40 | P.PN ---
Subjective Progress Note Date: 10/26/23 Hospital Course: Patient is a very pleasant 68-year-old female with a past medical history of hyperlipidemia, hypertension, hypothyroidism, anxiety, depression, PTSD, reports of multiple concussions, and nicotine dependence. She presented to the emergency department with a chief complaint right-sided weakness, facial droop, aphasia and dysphagia. Patient reported she first noticed the symptoms around 10 PM last night and noticed she had some right-sided weakness with difficulty walking, speaking and right-sided facial droop. Patient reports she thought the symptoms would just go away because she has had them happen in the past but only lasted a few moments before resolving. She states that she went to bed and awakening this morning upon the symptoms persisted so she told her she needed to come to the hospital. Patient denies having any headache, lightheadedness, dizziness, changes in vision or hearing, chest pain, palpitations, shortness of breath, cough or congestion, abdominal pain, nausea/vomiting, recent fever, chills, or infection, or experiencing any difficulties with or changes in her urinary or bowel function. Upon arrival to our facility patient underwent evaluation in the emergency department. Vital signs showing blood pressure 134/73, heart rate 70, respiratory rate 18, temp 97.5 F, and SpO2 of 92% on room air. Blood glucose 100. CT brain showing mild patchy burden of chronic small vessel ischemic disease, but negative for acute intracranial abnormality. EKG showing sinus rhythm at 62 bpm with T wave inversion in inferior leads II and aVF and occasional PVCs. Was completed and reviewed. CBC and coagulation profile normal findings. BMP unremarkable. Liver profile showing normal findings. CTA head and neck were completed. CTA neck showing widely patent carotid and vertebral arteries of the neck with COPD with moderate emphysema visualized in the upper lungs. CTA head showing no large vessel intracranial arterial occlusion, no significant stenosis or aneurysmal change reported. NIH upon arrival to hospital was reported to be 3. Patient is not a candidate for TNKase secondary to reported onset of symptoms being at 10 PM on 10/23/2023. Patient was given aspirin 325 mg p.o. x 1 dose and admitted under our services with consultation to neurology. TSH 2.250. Hgb A1c 5.3%.. Lipid profile showing elevated total cholesterol of 257 and LDL of 193.9.. Echocardiogram completed showing preserved EF of 60 to 65% no right to left shunting and no significant valvular or structural abnormalities reported.MRI brain without contrast revealed acute/subacute CVA involving the left thalamus/posterior limb of the internal capsule Physical exam: Patient was seen and fully evaluated at bedside this morning. Patient appeared depressed and discouraged this morning when she was given confirmation of acute CVA. Vital signs reviewed and stable. General: Nontoxic, no distress and appears stated age. Derm: Skin warm and dry, normal coloration for ethnicity. Head: Atraumatic, normocephalic and symmetric. Eyes: EOMs intact, no lid lag, and anicteric sclera Mouth: no lip lesions, mucus membranes moist. Right-sided facial droop noted. Cardiovascular: regular rate and rhythm with normal S1S2, systolic murmur, systolic positive posterior tibial pulses bilaterally, and cap refill < 2 seconds. Lungs: Respirations even, regular, and unlabored on room air. Lungs CTA bilaterally, no rhonchi, no rales, no wheezing, and no accessory muscle usage. Abdominal: soft, nontender to palpation, no guarding, no appreciable organomegaly Ext: No gross muscle atrophy, no edema, no contractures. Movement and sensation intact. No arm drop. Neuro: Speech clear but patient did have mild expressive aphasia noted, right- sided facial droop present. Bilateral upper and lower extremities equal and strong in strength with no weakness noted on today's assessment. GCS 15. Psych: Alert and oriented to person, place, time, and situation. 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 Miller. -MRI brain without contrast revealed acute/subacute CVA involving the left thalamus/posterior limb of the internal capsule -Echocardiogram completed showing preserved EF of 60 to 65% no right to left shunting and no significant valvular or structural abnormalities reported. -TSH 2.250. Hgb A1c 5.3%.. Lipid profile showing elevated total cholesterol of 257 and LDL of 193.9.. -NIH stroke scale with neuro checks every 4 hours and as needed -Continue dual antiplatelet therapy with aspirin 81 mg daily and Plavix 75 mg daily along with atorvastatin 40 mg daily. -PT/OT consulted -Consult to speech and language pathologist -Fall precautions and provide pt with assistance as needed Nicotine dependence Recommend smoking cessation. Order placed for nicotine patch 21 mg daily. Anxiety with depression PTSD Continue Klonopin 1 mg twice daily as needed for anxiety along with scheduled Seroquel 100 mg nightly and Zoloft 100 mg daily. Data and imaging reviewed: -MRI brain without contrast revealed acute/subacute CVA involving the left thalamus/posterior limb of the internal capsule -Lipid profile showing elevated total cholesterol of 257 and LDL of 193.9.. -Vital signs reviewed. Blood pressure 137/85, heart rate 74, respiratory rate 18, temp 97.5 F, and SpO2 of 94% on room air. CODE STATUS: Full code DVT prophylaxis: Lovenox Anticipated discharge date: Pending clinical course Anticipated discharge place: Pending clinical course Patient was seen independently by Nurse Practitioner. This document was prepared using [employer] dictation software. Please allow for errors in statement clerks supervisor while rare they do occur. Junior Jorge NP rendered care for this patient independently, reviewed the fi ndings and plan as documented in the note above. I did not physically speak with or examine the patient on this date. Objective - Vital Signs Vital signs: Vital Signs Temp 97.4 F L 10/26/23 04:00 Pulse 56 L 10/26/23 04:00 Resp 18 10/26/23 04:00 BP 120/66 10/26/23 04:00 Pulse Ox 95 10/26/23 04:00 FiO2 Intake & Output 10/25/23 10/26/23 10/26/23 18:59 06:59 18:59 Intake Total 720 Balance 720 Weight 50.9 kg Intake: Oral 720 Other: Voiding Method Toilet Toilet # Voids 1 1 - Labs CBC & Chem 7: 10/25/23 08:05 10/25/23 08:05 Labs: Abnormal Lab Results - Last 24 Hours (Table) 10/25/23 Range/Units 08:05 Chloride 110 H (98-107) mmol/L BUN 2 L (7-17) mg/dL Creatinine 0.37 L (0.52-1.04) mg/dL Glucose 111 H (74-99) mg/dL Total Protein 6.1 L (6.3-8.2) g/dL Cholesterol 257.00 H (0.00-200.00) mg/dL LDL Cholesterol, Calc 193.9 H (0.0-131.0) mg/dL
--- NOTE | 2023-10-26 13:43 | P.DS ---
Providers Date of admission: 10/24/23 13:40 Expected date of discharge: 10/26/23 Attending physician: Herrera Marc MD Consults: 10/24/23 13:37 Consult Physician Urgent Consulting Provider: Stephon Miller Consult Reason/Comments: cva Do you want consulting provider notified?: Yes Primary care physician: [facility] Course: Discharge Diagnosis: Acute ischemic CVA. Hgb A1c 5.3%.. Lipid profile showing elevated total cholesterol of 257 and LDL of 193.9.. Echocardiogram completed showing preserved EF of 60 to 65% no right to left shunting and no significant valvular or structural abnormalities reported.MRI brain without contrast revealed acute/subacute CVA involving the left thalamus/posterior limb of the internal capsule. Patient was evaluated by neurologist and speech and language pathologist. Right-sided weakness resolved and aphasia significantly improved. Patient continues to have mild right-sided facial droop. She reports no further difficulty swallowing and was cleared by speech and language pathologist for regular diet. Neurologist recommending dual antiplatelet therapy with aspirin and Plavix for 21 days followed by aspirin indefinitely. Patient also discharged home on atorvastatin 40 mg daily. Patient being discharged home with [facility] and to follow-up outpatient with PCP in 1 to 2 days and with neurologist in 2 weeks. Dysphagia Hyperlipidemia Hypertension Hypothyroidism History of multiple concussions Nicotine dependence Anxiety with depression PTSD Hospital Course: Patient is a very pleasant 68-year-old female with a past medical history of hyperlipidemia, hypertension, hypothyroidism, anxiety, depression, PTSD, reports of multiple concussions, and nicotine dependence. She presented to the emergency department with a chief complaint right-sided weakness, facial droop, aphasia and dysphagia. Patient reported she first noticed the symptoms around 10 PM last night and noticed she had some right-sided weakness with difficulty walking, speaking and right-sided facial droop. Patient reports she thought the symptoms would just go away because she has had them happen in the past but only lasted a few moments before resolving. She states that she went to bed and awakening this morning upon the symptoms persisted so she told her she needed to come to the hospital. Patient denies having any headache, lightheadedness, dizziness, changes in vision or hearing, chest pain, palpitations, shortness of breath, cough or congestion, abdominal pain, nausea/vomiting, recent fever, chills, or infection, or experiencing any difficulties with or changes in her urinary or bowel function. Upon arrival to our facility patient underwent evaluation in the emergency department. Vital signs showing blood pressure 134/73, heart rate 70, respiratory rate 18, temp 97.5 F, and SpO2 of 92% on room air. Blood glucose 100. CT brain showing mild patchy burden of chronic small vessel ischemic disease, but negative for acute intracranial abnormality. EKG showing sinus rhythm at 62 bpm with T wave inversion in inferior leads II and aVF and occasional PVCs. Was completed and reviewed. CBC and coagulation profile normal findings. BMP unremarkable. Liver profile showing normal findings. CTA head and neck were completed. CTA neck showing widely patent carotid and vertebral arteries of the neck with COPD with moderate emphysema visualized in the upper lungs. CTA head showing no large vessel intracranial arterial occlusion, no significant stenosis or aneurysmal change reported. NIH upon arrival to hospital was reported to be 3. Patient is not a candidate for TNKase secondary to reported onset of symptoms being at 10 PM on 10/23/2023. Patient was given aspirin 325 mg p.o. x 1 dose and admitted under our services with consultation to neurology. TSH 2.250. Hgb A1c 5.3%.. Lipid profile showing elevated total cholesterol of 257 and LDL of 193.9.. Echocardiogram completed showing preserved EF of 60 to 65% no right to left shunting and no significant valvular or structural abnormalities reported.MRI brain without contrast revealed acute/subacute CVA involving the left thalamus/posterior limb of the internal capsule. Patient was evaluated by neurologist and speech and language pathologist. Right-sided weakness resolved and aphasia significantly improved. Patient continues to have mild right-sided facial droop. She reports no further difficulty swallowing and was cleared by speech and language pathologist for regular diet. Neurologist recommending dual antiplatelet therapy with aspirin and Plavix for 21 days followed by aspirin indefinitely. Patient also discharged home on atorvastatin 40 mg daily. Patient being discharged home with [facility] care and to follow-up outpatient with PCP in 1 to 2 days and with neurologist in 2 weeks. Physical exam: Vital signs reviewed and stable. General: Nontoxic, no distress and appears stated age. Derm: Skin warm and dry, normal coloration for ethnicity. Head: Atraumatic, normocephalic and symmetric. Eyes: EOMs intact, no lid lag, and anicteric sclera Mouth: no lip lesions, mucus membranes moist. Right-sided facial droop noted. Cardiovascular: regular rate and rhythm with normal S1S2, systolic murmur, systolic positive posterior tibial pulses bilaterally, and cap refill < 2 seconds. Lungs: Respirations even, regular, and unlabored on room air. Lungs CTA bilaterally, no rhonchi, no rales, no wheezing, and no accessory muscle usage. Abdominal: soft, nontender to palpation, no guarding, no appreciable organomegaly Ext: No gross muscle atrophy, no edema, no contractures. Movement and sensation intact. No arm drop. Neuro: Speech clear but patient did have mild expressive aphasia noted, right- sided facial droop present. Bilateral upper and lower extremities equal and strong in strength with no weakness noted on today's assessment. GCS 15. Psych: Alert and oriented to person, place, time, and situation. A total of 35 minutes of time were spent preparing this complex discharge summary. Pt was discharged on 10/26/2023 at 1:45 PM. Patient was seen independently by Nurse Practitioner. This document was prepared using [employer] dictation software. Please allow for errors in consulting hr professional while rare they do occur. Junior Jorge NP rendered care for this patient independently, reviewed the findings and plan as documented in the note above. I did not physically speak with or examine the patient on this date. Patient Condition at Discharge: Stable Plan - Discharge Summary Discharge Rx Participant: No New Discharge Prescriptions: New Nicotine 21Mg/24Hr Patch [Habitrol] 1 patch TRANSDERM DAILY 30 Days #30 patch Atorvastatin [Lipitor] 40 mg PO DAILY 30 Days #30 tab Aspirin 81 mg PO DAILY 30 Days #30 tab Clopidogrel [Plavix] 75 mg PO DAILY 20 Days #20 tab Continue Sertraline [Zoloft] 100 mg PO DAILY QUEtiapine FUMARATE 100 mg PO HS clonazePAM [KlonoPIN] 1 mg PO BID PRN PRN Reason: Anxiety Discharge Medication List QUEtiapine FUMARATE 100 mg PO HS 03/25/22 [History] Sertraline [Zoloft] 100 mg PO DAILY 03/25/22 [History] clonazePAM [KlonoPIN] 1 mg PO BID PRN 10/24/23 [History] Aspirin 81 mg PO DAILY 30 Days #30 tab 10/26/23 [Rx] Atorvastatin [Lipitor] 40 mg PO DAILY 30 Days #30 tab 10/26/23 [Rx] Clopidogrel [Plavix] 75 mg PO DAILY 20 Days #20 tab 10/26/23 [Rx] Nicotine 21Mg/24Hr Patch [Habitrol] 1 patch TRANSDERM DAILY 30 Days #30 patch 10/26/23 [Rx] Follow up Appointment(s)/Referral(s): Charles Castaneda MD [REFERRING] - 1 Week (Office will call you with appointment date and time ) Nona Trent MD [Primary Care Provider] - 1-2 days (Please call to set up appointment to be seen for hospital follow up) [facility] Visiting Nurse, [NON-STAFF] - 1 Week Patient Instructions/Handouts: How to Stop Smoking (DC), Ischemic Stroke (DC), Self Care Measures After a Stroke (DC) Activity/Diet/Wound Care/Special Instructions: Activity: As tolerated. Take breaks as needed. Diet: Heart healthy and carb consistent diet. Avoid salts, or foods with hidden salts such as canned or boxed foods and frozen dinners. Extra salt makes your heart work harder and traps the fluid in your body for longer. Special Instructions: Take all of your medications as directed and remember to keep all of your doctor's appointments and follow-up as needed. . . Discharge Disposition: HOME WITH HOME HEALTH SERVICES
[2023-10-26 14:15] VITALS: BP 151/84; PULSE 81
== END 2023-10-26 17:10 | disposition home health service (06) | DRG 65 ==
LOC: EC 11:53 → 3SCARD 13:40
PROVIDERS: ADMIT Student in an Organized Health Care Education/Training Program; ATTEND Student in an Organized Health Care Education/Training Program
DX: I63.89 Other cerebral infarction (principal); G81.91 Hemiplegia, unspecified affecting right dominant side; R47.01 Aphasia; J43.9 Emphysema, unspecified; E03.9 Hypothyroidism, unspecified; I10 Essential (primary) hypertension; F32.A Depression, unspecified; R13.10 Dysphagia, unspecified; E78.5 Hyperlipidemia, unspecified; F17.210 Nicotine dependence, cigarettes, uncomplicated; R29.810 Facial weakness; F43.10 Post-traumatic stress disorder, unspecified; I49.3 Ventricular premature depolarization; R29.703 NIHSS score 3; F41.9 Anxiety disorder, unspecified; T39.016A Underdosing of aspirin, initial encounter; R47.9 Unspecified speech disturbances; Z79.82 Long term (current) use of aspirin; Z91.148 Patient's other noncompliance with medication regimen for other reason; Z88.0 Allergy status to penicillin; Z87.820 Personal history of traumatic brain injury; Z79.899 Other long term (current) drug therapy
CPT/HCPCS: 36415; 70450; 70496; 70498; 70551; 71046; 80053; 80061; 82550; 83036; 83735; 84443; 85025; 85027; 85610; 85730; 93005; 93306; 96360; 96361; 99291

== ENCOUNTER 2024-03-22 19:29 | Inpatient (IN) | payer MEDICARE ==
--- NOTE | 2024-03-22 20:00 | ED ---
SOB HPI - General Chief Complaint: Shortness of Breath Stated Complaint: SOB Time Seen by Provider: 03/22/24 19:32 Source: patient, RN notes reviewed, old records reviewed Mode of arrival: EMS Limitations: no limitations - History of Present Illness Initial Comments: This is a 68-year-old female to the ER for evaluation of cough and congestion shortness of breath coughing the point of vomiting. Patient having left-sided rib pain left-sided chest pain worse with movement. Patient presents by EMS due to shortness of breath and complaints of nausea vomiting here in the ER improved with breathing treatment MD Complaint: shortness of breath, cough -: hour(s) Severity: mild Severity scale (1-10): 2 Consistency: constant Improves With: nothing Worsens With: nothing Known History Of: COPD, asthma Context: recent URI, recent illness Associated Symptoms: denies other symptoms Treatments Prior to Arrival: none - Related Data Home Medications Medication Instructions Recorded Confirmed QUEtiapine FUMARATE 100 mg PO HS 03/25/22 03/23/24 Sertraline [Zoloft] 100 mg PO DAILY 03/25/22 03/23/24 clonazePAM [KlonoPIN] 1 mg PO BID 10/24/23 03/23/24 Previous Rx's Medication Instructions Recorded Atorvastatin [Lipitor] 40 mg PO DAILY 30 Days #30 tab 10/26/23 Clopidogrel [Plavix] 75 mg PO DAILY 20 Days #20 tab 10/26/23 Allergies Allergy/AdvReac Type Severity Reaction Status Date / Time amoxicillin Allergy Unknown Verified 03/23/24 10:32 Childhood Review of Systems ROS Statement: Those systems with pertinent positive or pertinent negative responses have been documented in the HPI. ROS Other: All systems not noted in ROS Statement are negative. Past Medical History Past Medical History: Hyperlipidemia, Hypertension, Thyroid Disorder Additional Past Medical History / Comment(s): Possible Alzheimers History of Any Multi-Drug Resistant Organisms: None Reported Past Surgical History: Section Past Anesthesia/Blood Transfusion Reactions: Postoperative Nausea & Vomiting (PONV) Past Psychological History: Depression, PTSD Smoking Status: Current every day smoker Past Alcohol Use History: None Reported Past Drug Use History: None Reported - Past Family History Mother Family Medical History: Coronary Artery Disease (CAD) General Exam Limitations: no limitations General appearance: alert, in no apparent distress, anxious, cachectic Head exam: Present: atraumatic, normocephalic, normal inspection Eye exam: Present: normal appearance, PERRL, EOMI. Absent: scleral icterus, conjunctival injection, periorbital swelling ENT exam: Present: normal exam, mucous membranes moist Neck exam: Present: normal inspection. Absent: tenderness, meningismus, lymphadenopathy Respiratory exam: Present: wheezes, chest wall tenderness, decreased breath sounds. Absent: respiratory distress, rales, rhonchi, stridor Cardiovascular Exam: Present: regular rate, normal rhythm, normal heart sounds. Absent: systolic murmur, diastolic murmur, rubs, gallop, clicks GI/Abdominal exam: Present: soft, normal bowel sounds. Absent: distended, tenderness, guarding, rebound, rigid Extremities exam: Present: normal inspection, full ROM, normal capillary refill. Absent: tenderness, pedal edema, joint swelling, calf tenderness Back exam: Present: normal inspection Neurological exam: Present: alert, oriented X3, CN II-XII intact Psychiatric exam: Present: normal affect, normal mood Skin exam: Present: warm, dry, intact, normal color. Absent: rash Course Vital Signs 03/22/24 03/22/24 03/22/24 19:38 20:32 20:48 Temperature 98.7 F Pulse Rate 84 78 80 Respiratory 18 Rate Blood Pressure 98/62 O2 Sat by Pulse 99 Oximetry Fraction of Inspired Oxygen (FIO2) 03/22/24 03/23/24 03/23/24 23:55 00:47 03:00 Temperature 98.0 F Pulse Rate 87 77 89 Respiratory 16 16 16 Rate Blood Pressure 129/69 118/59 132/74 O2 Sat by Pulse 91 L 91 L 92 L Oximetry Fraction of Inspired Oxygen (FIO2) 03/23/24 03/23/24 03/23/24 03:48 04:16 06:42 Temperature 97.6 F Pulse Rate 60 98 Respiratory 16 16 Rate Blood Pressure 151/85 116/82 O2 Sat by Pulse 94 L 95 Oximetry Fraction of Inspired Oxygen (FIO2) 03/23/24 03/23/24 03/23/24 10:00 12:00 12:10 Temperature Pulse Rate 86 79 79 Respiratory 18 19 0 L Rate Blood Pressure 137/85 137/85 158/93 O2 Sat by Pulse 96 Oximetry Fraction of Inspired Oxygen (FIO2) 03/23/24 03/23/24 03/23/24 12:20 12:30 12:40 Temperature Pulse Rate 81 81 80 Respiratory 5 L 0 L 6 L Rate Blood Pressure 158/93 158/93 158/93 O2 Sat by Pulse Oximetry Fraction of Inspired Oxygen (FIO2) 03/23/24 03/23/24 03/23/24 12:50 13:00 13:10 Temperature Pulse Rate 93 81 79 Respiratory 31 H 20 19 Rate Blood Pressure 158/93 158/93 158/93 O2 Sat by Pulse Oximetry Fraction of Inspired Oxygen (FIO2) 03/23/24 03/23/24 03/23/24 13:20 13:30 13:40 Temperature Pulse Rate 95 80 78 Respiratory 13 16 20 Rate Blood Pressure 158/93 158/93 158/93 O2 Sat by Pulse Oximetry Fraction of Inspired Oxygen (FIO2) 03/23/24 03/23/24 03/23/24 13:50 14:00 14:10 Temperature Pulse Rate 84 78 78 Respiratory 14 9 L 13 Rate Blood Pressure 158/93 158/93 166/104 O2 Sat by Pulse Oximetry Fraction of Inspired Oxygen (FIO2) 03/23/24 03/23/24 03/23/24 14:20 14:30 14:40 Temperature Pulse Rate 79 82 90 Respiratory 9 L 19 11 L Rate Blood Pressure 166/104 166/104 166/104 O2 Sat by Pulse Oximetry Fraction of Inspired Oxygen (FIO2) 03/23/24 03/23/24 03/23/24 14:50 15:00 15:10 Temperature Pulse Rate 77 81 84 Respiratory 18 21 19 Rate Blood Pressure 166/104 166/104 166/104 O2 Sat by Pulse Oximetry Fraction of Inspired Oxygen (FIO2) 03/23/24 03/23/24 03/23/24 15:20 15:30 15:40 Temperature Pulse Rate 83 82 79 Respiratory 21 20 19 Rate Blood Pressure 166/104 166/104 166/104 O2 Sat by Pulse Oximetry Fraction of Inspired Oxygen (FIO2) 03/23/24 03/23/24 03/23/24 15:50 16:00 16:10 Temperature Pulse Rate 84 87 81 Respiratory 15 6 L 17 Rate Blood Pressure 171/94 171/94 167/87 O2 Sat by Pulse Oximetry Fraction of Inspired Oxygen (FIO2) 03/23/24 03/23/24 03/23/24 16:20 16:30 16:40 Temperature Pulse Rate 86 81 82 Respiratory 21 20 19 Rate Blood Pressure 167/87 167/87 167/87 O2 Sat by Pulse Oximetry Fraction of Inspired Oxygen (FIO2) 03/23/24 03/23/24 03/23/24 16:50 17:00 17:10 Temperature Pulse Rate 80 123 H 109 H Respiratory 17 12 Rate Blood Pressure 167/87 131/111 79/62 O2 Sat by Pulse 80 L Oximetry Fraction of Inspired Oxygen (FIO2) 03/23/24 03/23/24 03/23/24 17:20 17:30 17:31 Temperature Pulse Rate Respiratory Rate Blood Pressure 129/110 O2 Sat by Pulse Oximetry Fraction of 100 100 Inspired Oxygen (FIO2) 03/23/24 03/23/24 03/23/24 18:21 18:30 18:40 Temperature Pulse Rate 101 H 102 H 101 H Respiratory 17 19 21 Rate Blood Pressure 82/56 81/53 81/53 O2 Sat by Pulse Oximetry Fraction of Inspired Oxygen (FIO2) 03/23/24 03/23/24 03/23/24 18:50 18:55 19:00 Temperature Pulse Rate 101 H 102 H Respiratory 22 23 Rate Blood Pressure 81/53 81/53 O2 Sat by Pulse Oximetry Fraction of 40 Inspired Oxygen (FIO2) 03/23/24 19:10 Temperature Pulse Rate 104 H Respiratory 27 H Rate Blood Pressure 81/53 O2 Sat by Pulse Oximetry Fraction of Inspired Oxygen (FIO2) - Reevaluation(s) Reevaluation #1: 03/22/24 20:00 Medical records reviewed Reevaluation #2: 03/22/24 20:00 Patient symptoms improved Continue to improve. They are breathing improved Reevaluation #3: 03/23/24 Patient informed of results questions answered Reevaluation #4: Was pt. sent in by a medical professional or institution (, PA, FIELD CROP HARVEST WORKER, urgent care, hospital, or care home...) When possible be specific @ -no Did you speak to anyone other than the patient for history (EMS, parent, family, police, friend...)? What history was obtained from this source @ -no Did you review nursing and triage notes (agree or disagree)? Why? @ -agree Are old charts reviewed (outside hosp., previous admission, EMS record, old EKG, old radiological studies, urgent care reports/EKG's, care home records)? Report findings @ -yes Differential Diagnosis (chest pain, altered mental status, abdominal pain women, abdominal pain men, vaginal bleeding, weakness, fever, dyspnea, syncope, headache, dizziness, GI bleed, back pain, seizure, CVA, palpatations, mental health, musculoskeletal)? @ -prior EKG interpreted by me (3pts min.). @ -yes X-rays interpreted by me (1pt min.). @ -yes n positive for pneumonia CT interpreted by me (1pt min.). @ -no U/S interpreted by me (1pt. min.). @ -Yes negative for acute disease What testing was considered but not performed or refused? (CT, X-rays, U/S, labs)? Why? @ -none What meds were considered but not given or refused? Why? @ -none Did you discuss the management of the patient with other professionals (professionals i.e. , PA, FIELD CROP HARVEST WORKER, lab, RT, psych nurse, social sciences chair, test bore helper, teacher, front desk officer, bottle caser)? Give summary @ -no Was smoking cessation discussed for >3mins.? @ -no Was critical care preformed (if so, how long)? @ -no Were there social determinants of health that impacted care today? How? (Homelessness, low income, unemployed, alcoholism, drug addiction, transportation, low edu. Level, literacy, decrease access to med. care, long-term, rehab)? @ -none Was there de-escalation of care discussed even if they declined (Discuss DNR or withdrawal of care, Hospice)? DNR status @ -no What co-morbidities impacted this encounter? (DM, HTN, Smoking, COPD, CAD, Cancer, CVA, ARF, Chemo, Hep., AIDS, mental health diagnosis, sleep apnea, morbid obesity)? @ -none Was patient admitted / discharged? Hospital course, mention meds given and route, prescriptions, significant lab abnormalities, going to OR and other pertinent info. @ -68 female to ER for evaluation of cough congestion and rib pain. Patient found to have pneumonia on x-ray with severe COPD. Patient will admit for IV antibiotics and monitoring of pulse ox Admitted Undiagnosed new problem with uncertain prognosis? @ -no Drug Therapy requiring intensive monitoring for toxicity (Heparin, Nitro, Insulin, Cardizem)? @ -no Were any procedures done? @ -no Diagnosis/symptom? @ -COPD with pneumonia Acute, or Chronic, or Acute on Chronic? @ -Acute Uncomplicated (without systemic symptoms) or Complicated (systemic symptoms)? @ -Complicated Side effects of treatment? @ -no Exacerbation, Progression, or Severe Exacerbation? @ -exacerbation Poses a threat to life or bodily function? How? (Chest pain, USA, KS, pneumonia, PE, COPD, DKA, ARF, appy, cholecystitis, CVA, Diverticulitis, Homicidal, Suicidal, threat to staff... and all critical care pts) @ -yes COPD with pneumonia Reevaluation #5: Differential Dyspnea: Coronary syndrome, arrhythmia, tamponade, asthma, COPD, pulmonary embolism, pneumonia, pneumothorax, pulmonary effusion, anaphylaxis, diabetic ketoacidosis, flailed chest, pulmonary contusion, diaphragmatic rupture, anemia, neuromuscu lar, this is not meant to be an all-inclusive list. - Consultations Consultation #1: Spoke with sound who agrees to admit this patient Medical Decision Making - Medical Decision Making 68 female to the ER with cough congestion chest pain pneumonia on x-ray. Patient presents to the ER with cough and rib pain, concern for pneumonia pneumonia found on x-ray, patient in no distress, no significant respiratory distress, patient will admit for IV antibiotics - Lab Data Result diagrams: 03/24/24 09:36 03/23/24 18:45 Lab Results 03/22/24 03/22/24 03/22/24 Range/Units 20:07 20:07 20:07 WBC 15.1 H (3.8-10.6) k/uL RBC 4.03 (3.80-5.40) m/uL Hgb 12.3 (11.4-16.0) gm/dL Hct 36.3 (34.0-46.0) % MCV 90.2 (80.0-100.0) fL MCH 30.5 (25.0-35.0) pg MCHC 33.8 (31.0-37.0) g/dL RDW 12.9 (11.5-15.5) % Plt Count 186 (150-450) k/uL MPV 8.2 Neutrophils % 87 % Lymphocytes % 6 % Monocytes % 5 % Eosinophils % 1 % Basophils % 0 % Neutrophils # 13.2 H (1.3-7.7) k/uL Lymphocytes # 0.8 L (1.0-4.8) k/uL Monocytes # 0.8 (0-1.0) k/uL Eosinophils # 0.2 (0-0.7) k/uL Basophils # 0.0 (0-0.2) k/uL PT 12.2 (10.0-12.5) sec INR 1.1 (<1.2) APTT 26.4 (22.0-30.0) sec Sodium 132 L (137-145) mmol/L Potassium 4.1 (3.5-5.1) mmol/L Chloride 99 (98-107) mmol/L Carbon Dioxide 24 (22-30) mmol/L Anion Gap 9 mmol/L BUN 9 (7-17) mg/dL Creatinine 0.41 L (0.52-1.04) mg/dL Est GFR (CKD-EPI)AfAm >90 (>60 ml/min/1.73 sqM) Est GFR (CKD-EPI)NonAf >90 (>60 ml/min/1.73 sqM) Glucose 141 H (74-99) mg/dL Calcium 8.5 (8.4-10.2) mg/dL Magnesium 1.9 (1.6-2.3) mg/dL Total Bilirubin 1.6 H (0.2-1.3) mg/dL AST 85 H (14-36) U/L ALT 59 H (4-34) U/L Alkaline Phosphatase 148 H (38-126) U/L Troponin I (0.000-0.034) ng/mL NT-Pro-B Natriuret Pep 103 pg/mL Total Protein 6.5 (6.3-8.2) g/dL Albumin 3.9 (3.5-5.0) g/dL 03/22/24 Range/Units 20:07 WBC (3.8-10.6) k/uL RBC (3.80-5.40) m/uL Hgb (11.4-16.0) gm/dL Hct (34.0-46.0) % MCV (80.0-100.0) fL MCH (25.0-35.0) pg MCHC (31.0-37.0) g/dL RDW (11.5-15.5) % Plt Count (150-450) k/uL MPV Neutrophils % % Lymphocytes % % Monocytes % % Eosinophils % % Basophils % % Neutrophils # (1.3-7.7) k/uL Lymphocytes # (1.0-4.8) k/uL Monocytes # (0-1.0) k/uL Eosinophils # (0-0.7) k/uL Basophils # (0-0.2) k/uL PT (10.0-12.5) sec INR (<1.2) APTT (22.0-30.0) sec Sodium (137-145) mmol/L Potassium (3.5-5.1) mmol/L Chloride (98-107) mmol/L Carbon Dioxide (22-30) mmol/L Anion Gap mmol/L BUN (7-17) mg/dL Creatinine (0.52-1.04) mg/dL Est GFR (CKD-EPI)AfAm (>60 ml/min/1.73 sqM) Est GFR (CKD-EPI)NonAf (>60 ml/min/1.73 sqM) Glucose (74-99) mg/dL Calcium (8.4-10.2) mg/dL Magnesium (1.6-2.3) mg/dL Total Bilirubin (0.2-1.3) mg/dL AST (14-36) U/L ALT (4-34) U/L Alkaline Phosphatase (38-126) U/L Troponin I <0.012 (0.000-0.034) ng/mL NT-Pro-B Natriuret Pep pg/mL Total Protein (6.3-8.2) g/dL Albumin (3.5-5.0) g/dL - EKG Data -: EKG Interpreted by Me (EKG is sinus 84 VA 108 QRS 90 QTc 408) - Radiology Data Radiology results: report reviewed (Chest x-ray is positive for pneumonia, ultrasound negative for acute disease), image reviewed Critical Care Time Critical Care Time: Yes Total Critical Care Time: 31 Disposition Clinical Impression: Acute exacerbation of chronic obstructive pulmonary disease, Community acquired pneumonia, Chest pain Disposition: ADMITTED IP TO THIS [facility] Condition: Serious Is patient prescribed a controlled substance at d/c from ED?: No Time of Disposition: 22:00
[2024-03-22] MEDS: methylPREDNISolone SOD SUCCI 125 MG/2 ML VIAL IV STA (20:14)
[2024-03-22] MEDS: ONDANSETRON 4 MG/2 ML VIAL IVP STA (20:14)
[2024-03-22] MEDS: MORPHINE SULFATE 4 MG/ML SYRINGE IVP STA (20:15)
[2024-03-22] MEDS: SODIUM CHLORIDE 0.9% 1,000 ML IV STA (20:17)
[2024-03-22 20:30] LABS: Basophils % (A) 0 %; Eosinophils # (A) 0.2 k/uL (0-0.7); Eosinophils % (A) 1 %; HCT 36.3 % (34.0-46.0); HGB 12.3 gm/dL (11.4-16.0); Lymphocytes # (A) 0.8 k/uL (1.0-4.8); Lymphocytes % (A) 6 %; MCH 30.5 pg (25.0-35.0); MCHC 33.8 g/dL (31.0-37.0); MCV 90.2 fL (80.0-100.0); Mean Platelet Volume 8.2; Monocytes # (A) 0.8 k/uL (0-1.0); Monocytes % (A) 5 %; Neutrophils # (A) 13.2 k/uL (1.3-7.7); Neutrophils % (A) 87 %; Platelet Count 186 k/uL (150-450); RBC 4.03 m/uL (3.80-5.40); RDW 12.9 % (11.5-15.5); WBC 15.1 k/uL (3.8-10.6)
[2024-03-22] MEDS: IPRATROPIUM-ALBUTEROL 3 ML NEB INHALATION STA ×2 (20:30→23:57)
[2024-03-22 20:41] LABS: INR 1.1 (<1.2); Partial Thromboplastin Time 26.4 sec (22.0-30.0); Prothrombin Time 12.2 sec (10.0-12.5)
[2024-03-22 21:03] LABS: ALT 59 U/L (4-34); African American GFR (CKD) >90 (>60 ml/min/1.73 sqM); Anion Gap 9 mmol/L; Blood Urea Nitrogen 9 mg/dL (7-17); Calcium 8.5 mg/dL (8.4-10.2); Carbon Dioxide 24 mmol/L (22-30); Chloride 99 mmol/L (98-107); Glucose 141 mg/dL (74-99); Non-African American GFR(CKD) >90 (>60 ml/min/1.73 sqM); Sodium 132 mmol/L (137-145); Total Bilirubin 1.6 mg/dL (0.2-1.3)
[2024-03-22 21:04] LABS: AST 85 U/L (14-36); Albumin 3.9 g/dL (3.5-5.0); Magnesium 1.9 mg/dL (1.6-2.3); Potassium 4.1 mmol/L (3.5-5.1); Total Protein 6.5 g/dL (6.3-8.2)
[2024-03-22 21:05] LABS: Alkaline Phosphatase 148 U/L (38-126)
[2024-03-22 21:12] LABS: NT-Pro-B-Type Natriuretic Pept 103 pg/mL
--- NOTE | 2024-03-22 21:20 | XR ---
EXAMINATION TYPE: XR chest 1V portable DATE OF EXAM: 03/22/2024 8:59 PM COMPARISON: Chest radiographs from 10/24/2023. CLINICAL INDICATION: Female, 68 years old with history of sob; [facility] TECHNIQUE: XR chest 1V portable Frontal view of the chest. FINDINGS: Lungs/Pleura: New right lower lung airspace opacities. There is no evidence of pleural effusion, foca l consolidation, or pneumothorax. Pulmonary vascularity: Unremarkable. Heart/mediastinum: Cardiomediastinal silhouette is unremarkable. Musculoskeletal: No acute osseous pathology. IMPRESSION: Right lower lung airspace opacities correlate for pneumonia. [facility], , 03/22/2024 9:18 PM
[2024-03-22] MEDS ORDERED: PNEUMONIA PROTOCOL UTILIZED 1 EACH MISC PO PRN (22:06)
--- NOTE | 2024-03-22 23:03 | US ---
EXAMINATION TYPE: US gallbladder DATE OF EXAM: 03/22/2024 COMPARISON: NONE CLINICAL INDICATION: Female, 68 years old with history of pain; chest pain. SOB TECHNIQUE: Grayscale and color Doppler imaging of the right upper quadrant was performed. FINDINGS: EXAM MEASUREMENTS: Liver Length: 17.5 cm Gallbladder Wall: 0.2 cm CBD: 0.4 cm Right Kidney: 10.0 x 4.0 x 4.1 cm Pancreas: Tail obscured by overlying bowel gas Liver: appears wnl as visualized Gallbladder: no evidence of stones Evidence for sonographic Johnson's sign: no CBD: appears wnl Right Kidney: no evidence of hydronephrosis The visualized portions of pancreas unremarkable. The liver is unremarkable without focal lesion. No gallstones, wall thickening or surrounding fluid identified. Negative sonographic Johnson's sign. Comm on bile duct is within normal limits. Right kidney demonstrates no hydronephrosis, solid mass, or sha dowing calculi. IMPRESSION: No ultrasound evidence for acute process. [facility], , 03/22/2024 11:01 PM
[2024-03-22] MEDS: SODIUM CHLORIDE 0.9% 1,000 ML IV SCH (23:49)
[2024-03-22] MEDS: HYDROmorphone 1 MG/ML 1 ML SYRINGE IVP STA (23:52)
[2024-03-23] MEDS: AZITHROMYCIN 500 MG in SODIUM CHLORIDE 0.9% 250 ML IVPB STA ×2 (00:27→00:44)
[2024-03-23 01:15] LABS: Glucose,Whole Blood 215 mg/dL (70-110)
[2024-03-23] MEDS: HYDROmorphone 1 MG/ML 1 ML SYRINGE IVP PRN (03:43)
--- NOTE | 2024-03-23 04:05 | P.HPIM ---
History of Present Illness H&P Date: 03/22/24 Patient is a 68-year-old female with a PMH of hyperlipidemia and hypertension who presents to the emergency room with complaints of shortness of breath and cough. Patient reports that over the past 4 to 5 days, she has been experiencing gradually worsening cough productive of greenish phlegm which is accompanied by shortness of breath and intermittent fever and chills. She also reports experiencing a mild diffuse chest discomfort which she reports is worsened with cough. Denies experiencing nausea, vomiting, abdominal pain, diarrhea. Also denied lower extremity swelling or pain. Denies any prior history of such symptoms. Chest x-ray in the emergency room revealed right lower lobe pneumonia with EKG showing sinus rhythm with short KS interval at 84 bpm with diffuse T wave inversion as reviewed by me. Laboratory evaluation was remarkable leukocytosis of 15.1 with a left shift with sodium 132, glucose 141, total bilirubin 1.6, AST 85, ALT 59, and alk phos 148 with proBNP 160. ED documentation reviewed and case discussed with ED provider. Review of systems: Pertinent positives and negatives as discussed in HPI, a complete review of systems was performed and all other systems are negative. Physical examination: Vital signs reviewed General: non toxic, no distress, appears at stated age, normal weight Derm: no unusual rashes/lesions, warm Head: atraumatic, normocephalic, symmetric Eyes: EOMI, no lid lag, anicteric sclera, pupils equal round reactive to light ENT: Nose and ears atraumatic Neck: No cervical lymphadenopathy, trachea midline, supple Mouth: no lip lesion, mucus membranes moist Cardiovascular: S1S2 reg, no murmur, positive dorsalis pedis pulse bilateral, no edema Lungs: CTA bilateral, no rhonchi, no rales, no accessory muscle use Abdominal: soft, nontender to palpation, no guarding Ext: muscle strength 5 out of 5 in all 4 extremities grossly, no gross muscle atrophy, no contractures, Neuro: CN II-XI grossly intact, no gross focal neuro deficits Psych: Alert, oriented, appropriate affect Assessment: Community-acquired pneumonia Abnormal LFTs, suspect secondary to ongoing infection Hyponatremia Chronic conditions: Hypertension, hyperlipidemia Imaging: Chest x-ray in the emergency room revealed right lower lobe pneumonia with EKG showing sinus rhythm with short KS interval at 84 bpm with diffuse T wave inversion as reviewed by me. Data Review: Laboratory evaluation was remarkable leukocytosis of 15.1 with a left shift with sodium 132, glucose 141, total bilirubin 1.6, AST 85, ALT 59, and alk phos 148 with proBNP 160. Plan: Continue with IV antibiotics including azithromycin and ceftriaxone Continue IV fluids with normal saline 100 mL/h Follow-up blood, sputum, and Legionella cultures Monitor LFTs DVT prophylaxis: Lovenox subcu The patient is admitted with an anticipated greater than than 2 midnight stay for evaluation of pneumonia CODE STATUS: Full Code Discussed with: Patient Anticipated discharge place: Home Past Medical History Past Medical History: Hyperlipidemia, Hypertension, Thyroid Disorder Additional Past Medical History / Comment(s): Possible Alzheimers History of Any Multi-Drug Resistant Organisms: None Reported Past Surgical History: Section Past Anesthesia/Blood Transfusion Reactions: Postoperative Nausea & Vomiting (PONV) Past Psychological History: Depression, PTSD Smoking Status: Current every day smoker Past Alcohol Use History: None Reported Past Drug Use History: None Reported - Past Family History Mother Family Medical History: Coronary Artery Disease (CAD) Medications and Allergies Home Medications Medication Instructions Recorded Confirmed Type QUEtiapine FUMARATE 100 mg PO HS 03/25/22 10/24/23 History Sertraline [Zoloft] 100 mg PO DAILY 03/25/22 10/24/23 History clonazePAM [KlonoPIN] 1 mg PO BID PRN 10/24/23 10/24/23 History Aspirin 81 mg PO DAILY 30 Days #30 tab 10/26/23 Rx Atorvastatin [Lipitor] 40 mg PO DAILY 30 Days #30 tab 10/26/23 Rx Clopidogrel [Plavix] 75 mg PO DAILY 20 Days #20 tab 10/26/23 Rx Nicotine 21Mg/24Hr Patch [Habitrol] 1 patch TRANSDERM DAILY 30 Days 10/26/23 Rx #30 patch Allergies Allergy/AdvReac Type Severity Reaction Status Date / Time amoxicillin Allergy Unknown Verified 03/22/24 19:40 Childhood Physical Exam Vitals: Vital Signs Temp Pulse Resp BP Pulse Ox 03/23/24 03:48 60 16 151/85 94 L 03/23/24 03:00 89 16 132/74 92 L 03/23/24 00:47 98.0 F 77 16 118/59 91 L 03/22/24 23:55 87 16 129/69 91 L 03/22/24 20:48 80 03/22/24 20:32 78 03/22/24 19:38 98.7 F 84 18 98/62 99 Intake and Output 03/22/24 03/22/24 03/23/24 14:59 22:59 06:59 Other: Weight 54.431 kg Results CBC & Chem 7: 03/22/24 20:07 03/22/24 20:07 Labs: Abnormal Lab Results - Last 24 Hours (Table) 03/22/24 03/22/24 03/23/24 Range/Units 20:07 20:07 01:13 WBC 15.1 H (3.8-10.6) k/uL Neutrophils # 13.2 H (1.3-7.7) k/uL Lymphocytes # 0.8 L (1.0-4.8) k/uL Sodium 132 L (137-145) mmol/L Creatinine 0.41 L (0.52-1.04) mg/dL Glucose 141 H (74-99) mg/dL POC Glucose (mg/dL) 215 H (70-110) mg/dL Total Bilirubin 1.6 H (0.2-1.3) mg/dL AST 85 H (14-36) U/L ALT 59 H (4-34) U/L Alkaline Phosphatase 148 H (38-126) U/L
[2024-03-23] MEDS: ONDANSETRON 4 MG/2 ML VIAL IVP STA (04:39)
--- NOTE | 2024-03-23 07:11 | XR ---
EXAMINATION TYPE: XR chest 2V DATE OF EXAM: 03/23/2024 4:54 AM COMPARISON: Chest radiograph from one day prior. CLINICAL INDICATION: Female, 68 years old with history of pneumonia; [facility] TECHNIQUE: XR chest 2V Frontal and lateral views of the chest. FINDINGS: Lungs/Pleura: Improved aeration of lungs on the right lung base with persistent airspace opacities. N o evidence of pneumothorax or large pleural effusion. Pulmonary vascularity: Unremarkable. Heart/mediastinum: Cardiomediastinal silhouette is unremarkable. Musculoskeletal: No acute osseous pathology. Other findings: None Lines/Tubes: IMPRESSION: Improved aeration of the right lung base with persistent airspace opacities. [facility], , 03/23/2024 7:09 AM
--- NOTE | 2024-03-23 07:17 | CT ---
EXAMINATION TYPE: CT angio chest DATE OF EXAM: 03/23/2024 4:54 AM COMPARISON: Chest radiograph from same day. CLINICAL INDICATION: Female, 68 years old with history of chest pain radiating to back, r/o dissectio n; pt brought in via ems for c/o cough and rib pain. chest pain radiating to back, r/o dissection TECHNIQUE/CONTRAST: CTA scan of the thorax is performed without and with IV Contrast, patient injected with 100 mL of Iso arron 370, MIP images are created and reviewed these are created on a separate workstation.. CT DLP: 473.3 mGycm, Automated exposure control for dose reduction was used. FINDINGS: Lungs/Pleura: Right middle lobe airspace opacities. Centrilobular and paraseptal emphysema changes. T race right pleural effusion No evidence of left focal consolidation, left pleural effusion or pneumot horax. 4 mm left upper lobe pulmonary nodule. Airway: Large airways are patent. Heart: Heart is within normal limits for size. Vasculature: No evidence for intramural hematoma on noncontrast imaging. No evidence of intimal flap to suggest dissection. Scattered atherosclerotic disease. There is no evidence for a filling defect w ithin the pulmonary vasculature to suggest acute pulmonary embolism. The pulmonary artery is of norm al size. 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 No aortic aneurysm or ectasia identified .r Mediastinum: No gross evidence of adenopathy. Musculoskeletal: Moderate degenerative disc disease changes are present throughout the thoracolumbar spine. Soft Tissues/lymph nodes: Unremarkable. Lower neck: No significant findings. Upper Abdomen: No significant findings. IMPRESSION: 1. No evidence for aortic aneurysm, dissection or occlusion. No evidence for pulmonary embolus in the central pulmonary vasculature. 2. 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 3. Right middle lobe airspace opacities compatible with pneumonia. [facility], , 03/23/2024 7:14 AM
[2024-03-23] MEDS: ENOXAPARIN 40 MG/0.4 ML SYRINGE SQ SCH (08:24)
[2024-03-23] MEDS: AZITHROMYCIN 500 MG TAB PO SCH (08:24)
[2024-03-23] MEDS: ALBUTEROL NEBULIZED 2.5 MG/3 ML INHALATION SCH (08:54)
--- NOTE | 2024-03-23 11:28 | P.PN ---
Subjective Progress Note Date: 03/23/24 No new complaints today. Ongoing treatment for PNA. Gen: In NAD, non-toxic HEENT: normocephalic, atraumatic, hearing acuity is intant, mucous membranes moist CVS: perfusing all extremities well, no pitting edema, Respiratory: symmetric chest expansion, no accessory muscle use, GI: soft, NTTP, ND, : no suprapubic tenderness, no CVA tenderness MSK/Derm: no rashes, cyanosis Neuro: CN II-XII intact, no motor weakness, Psych: cooperative, euthymic mood, judgment and insight is intact Hospital course: Patient is a 68-year-old female with a PMH of hyperlipidemia and hypertension who presented to the emergency room with complaints of shortness of breath and cough. Chest x-ray in the emergency room revealed right lower lobe pneumonia with EKG showing sinus rhythm with short IA interval at 84 bpm with diffuse T wave inversion as reviewed by me. Laboratory evaluation was remarkable leukocytosis of 15.1 with a left shift with sodium 132, glucose 141, total bilirubin 1.6, AST 85, ALT 59, and alk phos 148 with proBNP 160. Assessment: Community-acquired pneumonia Abnormal LFTs, suspect secondary to ongoing infection Hyponatremia Chronic conditions: Hypertension, hyperlipidemia Plan: Continue with IV antibiotics including azithromycin and ceftriaxone Continue IV fluids with normal saline 100 mL/h Follow-up blood, sputum, and Legionella cultures Monitor LFTs DVT prophylaxis: Lovenox subcu The patient is admitted with an anticipated greater than than 2 midnight stay for evaluation of pneumonia CODE STATUS: Full Code Discussed with: Patient Anticipated discharge place: Home Objective - Vital Signs Vital signs: Vital Signs Temp 97.6 F 03/23/24 04:16 Pulse 98 03/23/24 06:42 Resp 16 03/23/24 06:42 BP 116/82 03/23/24 06:42 Pulse Ox 95 03/23/24 06:42 FiO2 Intake & Output 03/22/24 03/23/24 03/23/24 18:59 06:59 18:59 Weight 54.431 kg - Labs CBC & Chem 7: 03/22/24 20:07 03/22/24 20:07 Labs: Abnormal Lab Results - Last 24 Hours (Table) 03/22/24 03/22/24 03/23/24 Range/Units 20:07 20:07 01:13 WBC 15.1 H (3.8-10.6) k/uL Neutrophils # 13.2 H (1.3-7.7) k/uL Lymphocytes # 0.8 L (1.0-4.8) k/uL Sodium 132 L (137-145) mmol/L Creatinine 0.41 L (0.52-1.04) mg/dL Glucose 141 H (74-99) mg/dL POC Glucose (mg/dL) 215 H (70-110) mg/dL Total Bilirubin 1.6 H (0.2-1.3) mg/dL AST 85 H (14-36) U/L ALT 59 H (4-34) U/L Alkaline Phosphatase 148 H (38-126) U/L
[2024-03-23] MEDS: clonazePAM 1 MG TAB PO SCH (12:01)
[2024-03-23] MEDS: CLOPIDOGREL 75 MG TAB PO SCH (12:01)
[2024-03-23] MEDS: SERTRALINE 100 MG TAB PO SCH (12:01)
[2024-03-23] MEDS ORDERED: ONDANSETRON 4 MG/2 ML VIAL IVP PRN (12:37)
[2024-03-23] MEDS ORDERED: ATROPINE SULFATE 0.1 MG/ML 10ML SYRINGE ONE (16:54)
[2024-03-23] MEDS ORDERED: AMIODARONE 50 MG/ML 3 ML VIAL IV ONE (16:54)
[2024-03-23] MEDS ORDERED: MAGNESIUM SULFATE SYG 4.06 MEQ/ML SYRINGE ONE (16:54)
[2024-03-23] MEDS ORDERED: SODIUM BICARB 8.4% 50 ML SYR (1 MEQ/ML) ONE (16:54)
[2024-03-23] MEDS ORDERED: EPINEPHrine 10 ML SYRINGE (0.1 MG/ML) ONE (16:54)
[2024-03-23 17:08] LABS: Glucose,Whole Blood 133 mg/dL (70-110)
[2024-03-23] MEDS ORDERED: Magnesium Replacement Protocol 1 EACH MISC MISCELLANE PRN (17:26)
[2024-03-23] MEDS ORDERED: Potassium Replacement Protocol 1 EACH MISC MISCELLANE PRN (17:26)
[2024-03-23] MEDS ORDERED: NALOXONE 0.4 MG/ML 1 ML VIAL IV PRN (17:26)
[2024-03-23 17:28] LABS: Glucose,Whole Blood 315 mg/dL (70-110)
[2024-03-23] MEDS: NOREPINEPHRINE 8 MG in SODIUM CHLORIDE 0.9% 250 ML IV SCH ×2 (17:30→23:02)
[2024-03-23] MEDS: NOREPINEPHRINE 4 MG in SODIUM CHLORIDE 0.9% 250 ML IV SCH (17:35)
[2024-03-23] MEDS ORDERED: NOREPINEPHRINE 4 MG in SODIUM CHLORIDE 0.9% 250 ML IV SCH (17:45)
[2024-03-23] MEDS ORDERED: DEXTROSE 50% SYRINGE 50 ML IVP PRN ×2 (17:53)
--- NOTE | 2024-03-23 18:10 | XR ---
EXAMINATION TYPE: XR chest 1V portable DATE OF EXAM: 03/23/2024 5:52 PM COMPARISON: Chest radiographs from same day CLINICAL INDICATION: Female, 68 years old with history of Tube placement; [facility] TECHNIQUE: XR chest 1V portable Frontal view of the chest. FINDINGS: Lungs/Pleura: Right lower lung airspace opacity is unchanged. There is no evidence of pleural effusio n, focal consolidation, or pneumothorax. Pulmonary vascularity: Unremarkable. Heart/mediastinum: Cardiomediastinal silhouette is unremarkable. Musculoskeletal: No acute osseous pathology. Other findings: None Lines/Tubes: Endotracheal tube with distal tip 2.8cm above the stephanie. Nasogastric tube with side-port projecting over the distal esophagus. IMPRESSION: 1. Nasogastric tube side-port distal esophagus consider advancement of 8 cm for optimal placement. 2. Endotracheal tube in satisfactory position. [facility], , 03/23/2024 6:08 PM
--- NOTE | 2024-03-23 18:34 | P.PN ---
Progress Note - Text Progress Note Date: 03/23/24 Code Blue Note I was called to bedside for CODE BLUE. Initial rhythm was PEA, as well as puls e/rhythm checks subsequent few. Patient received multiple rounds of epinephrine, bicarb. Patient was also given a push of magnesium. Patient's rhythm ultimately transition to coarse ventricular fibrillation, after which, patient received 1 shock at 120 J. Subsequent rhythm was noted to be V. tach, and she was given an amiodarone push of 300 mg, then started on a drip. After 1 additional round of CPR, patient obtained ROSC. Total code time was approximately 20 minutes. Postcode, patient noted to be hypotensive with a pressure of 42/29, was given a push of Levophed, started on a Levophed drip, transferred to the ICU.
--- NOTE | 2024-03-23 18:44 | XR ---
EXAMINATION TYPE: XR chest 1V portable DATE OF EXAM: 03/23/2024 6:38 PM COMPARISON: Chest radiographs from same day CLINICAL INDICATION: Female, 68 years old with history of Central Line Placement; [facility] TECHNIQUE: XR chest 1V portable Frontal view of the chest. FINDINGS: Lungs/Pleura: Right lower lung airspace opacities remain. There is no evidence of pleural effusion, f ocal consolidation, or pneumothorax. Pulmonary vascularity: Unremarkable. Heart/mediastinum: Cardiomediastinal silhouette is unremarkable. Musculoskeletal: No acute osseous pathology. Other findings: None Lines/Tubes: Endotracheal tube with distal tip 3.1 cm above the stephanie. Nasogastric tube with side-port projecting over the distal esophagus. Right internal jugular central venous catheter with distal tip at the cavoatrial junction. IMPRESSION: Side-port over the distal esophagus remains enhancement of 7 cm recommended for placement of the naso gastric tube. Right central venous catheter in appropriate position no evidence for pneumothorax. Endotracheal tube in satisfactory position. [facility], , 03/23/2024 6:42 PM
[2024-03-23] MEDS: AMIODARONE 360 MG in DEXTROSE 5% IN WATER 200 ML IV ONE (18:46)
--- NOTE | 2024-03-23 18:46 | P.PCN ---
Date of Procedure: 03/23/24 Procedure(s) Performed: Right internal jugular central line insertion. Anesthesia: local Surgeon: Violeta Muniz Estimated Blood Loss (ml): 0 Condition: critical Disposition: ICU Indications for Procedure: Need for vasopressors Description of Procedure: Pre-procedural Preparation: 1. Patient is identified as Lucila Peguero, who is a 68 year old woman requiring central line insertion for utilization of pressors. Consent falls under emergency consent due to critical status of this patient and need for two vasopressors to maintain BP. A Right IJ approach was taken using seldinger technique. 2. An Ultrasound was used to guide placement of central line. 3. The site was prepped and cleaned using chlorhexidine, followed by sterile draping over the remainder of the patient. Anesthesia and Access: 1. The area was anesthetized using 1% lidocaine. 2. Following anesthesia, access needle was used under US guidance to find and enter the Right IJ Guidewire and Catheter Placement: 1. A guidewire was passed through the access catheter using seldinger technique 2. US was used to confirm placement of guidewire into the IJ. 3. A small incision was placed in the skin at the site of access 4. A dilator was passed over the wire into the IJ 5. Finally, a triple lumen catheter was placed over the guidewire into the right IJ, 15cm depth 6. US was used to confirm placement of the catheter into the IJ Securing and Final steps 1. Each port was aspirated, then flushed 2. Catheter was sutured into place 3. Catheter was covered using sterile tegaderm. 4. CXR was ordered to confirm placement.
[2024-03-23] MEDS: VASOPRESSIN 60 UNIT in SODIUM CHLORIDE 0.9% 150 ML IV SCH (18:47)
[2024-03-23 18:48] LABS: ABG Base Excess -5.7 mmol/L; ABG HCO3 22 mmol/L (21-25); ABG Oxygen Saturation >100.0 % (94-97); ABG PCO2 58 mmHg (35-45); ABG TCO2 24 mmol/L (19-24)
[2024-03-23] MEDS: SODIUM CHLORIDE 0.9% 1,000 ML IV ONE (18:48)
[2024-03-23 18:49] LABS: ABG PH 7.19 (7.35-7.45); ABG PO2 >420 mmHg (83-108); Allen Test Performed? no
[2024-03-23 18:59] LABS: Basophils # (A) 0.1 k/uL (0-0.2); Basophils % (A) 0 %; Eosinophils # (A) 0.1 k/uL (0-0.7); Eosinophils % (A) 0 %; Hypochromasia Marked; Lymphocytes # (A) 1.8 k/uL (1.0-4.8); Lymphocytes % (A) 13 %; MCH 30.9 pg (25.0-35.0); MCHC 31.9 g/dL (31.0-37.0); Mean Platelet Volume 8.5; Monocytes # (A) 0.6 k/uL (0-1.0); Monocytes % (A) 4 %; Neutrophils # (A) 10.9 k/uL (1.3-7.7); Neutrophils % (A) 81 %; Platelet Count 245 k/uL (150-450); RBC 1.57 m/uL (3.80-5.40); RDW 13.2 % (11.5-15.5); WBC 13.4 k/uL (3.8-10.6)
[2024-03-23 19:05] LABS: HCT 15.3 % (34.0-46.0); HGB 4.9 gm/dL (11.4-16.0); MCV 96.9 fL (80.0-100.0)
[2024-03-23 19:12] LABS: African American GFR (CKD) >90 (>60 ml/min/1.73 sqM); Anion Gap 14 mmol/L; Blood Urea Nitrogen 11 mg/dL (7-17); Carbon Dioxide 22 mmol/L (22-30); Chloride 106 mmol/L (98-107); Glucose 310 mg/dL (74-99); Non-African American GFR(CKD) >90 (>60 ml/min/1.73 sqM); Potassium 3.3 mmol/L (3.5-5.1); Sodium 142 mmol/L (137-145)
[2024-03-23 19:19] LABS: Calcium 6.4 mg/dL (8.4-10.2)
[2024-03-23 19:20] LABS: Magnesium 5.4 mg/dL (1.6-2.3)
[2024-03-23] MEDS: CALCIUM GLUCONATE IN NACL 1 GM in SALINE 1 100ML.BAG IVPB ONE (20:46)
--- NOTE | 2024-03-23 21:10 | XR ---
EXAMINATION TYPE: XR chest 1V portable DATE OF EXAM: 03/23/2024 8:58 PM COMPARISON: Chest radiographs from same day. CLINICAL INDICATION: Female, 68 years old with history of For Possible bleed; [facility] TECHNIQUE: XR chest 1V portable Frontal view of the chest. FINDINGS: Lungs/Pleura: Right lower lung airspace opacities remain. There is no evidence of pleural effusion, f ocal consolidation, or pneumothorax. Pulmonary vascularity: Unremarkable. Heart/mediastinum: Cardiomediastinal silhouette is unremarkable. Musculoskeletal: No acute osseous pathology. Other findings: None Lines/Tubes: Endotracheal tube with distal tip 3.1 cm above the stephanie. Nasogastric tube with its distal tip and side-port projecting under the diaphragm. Right internal jugular central venous catheter with distal tip at the cavoatrial junction. IMPRESSION: No change from prior. [facility], , 03/23/2024 9:08 PM
[2024-03-23 21:46] LABS: Appearance,Urine Turbid (Clear); Bacteria,Urine Moderate /hpf; Bilirubin,Urine Negative (Negative); Blood,Urine Moderate (Negative); Budding Yeast,Urine Many /hpf; Color,Urine Yellow; Glucose,Urine (UA) 2+ (Negative); Ketones,Urine Negative (Negative); Leukocyte Esterase,Urine Trace (Negative); Mucus,Urine Occasional /hpf; Nitrite,Urine Negative (Negative); PH, Urine 5.5 (5.0-8.0); Protein,Urine 2+ (Negative); RBC,Urine 55 /hpf (0-5); Specific Gravity,Urine 1.022 (1.001-1.035); WBC,Urine 85 /hpf (0-5)
[2024-03-23 23:20] LABS: Glucose,Whole Blood 154 mg/dL (70-110)
--- NOTE | 2024-03-23 23:22 | CT ---
EXAM: CT Head Without Intravenous Contrast CLINICAL HISTORY: ITS.REASON CT Reason: seizure vs stroke TECHNIQUE: Axial computed tomography images of the head/brain without intravenous contrast. CTDI is 49.1 mGy and DLP is 1121 mGy-cm. This CT exam was performed using one or more of the following dose reduction techniques: automated exposure control, adjustment of the mA and/or kV according to patient size, and/or use of iterative reconstruction technique. COMPARISON: No relevant prior studies available. FINDINGS: Brain: No intracranial hemorrhage, mass-effect, or cerebral edema. Chronic lacunar infarct within the left internal capsule. Global parenchymal atrophy. Periventricular and subcortical low attenuation which is nonspecific but favored to represent chronic microvascular ischemic changes. Ventricles: Unremarkable. Bones/joints: Unremarkable. No fracture. Soft tissues: Unremarkable. Sinuses: No acute sinusitis. Mastoid air cells: Unremarkable as visualized. IMPRESSION: 1. No acute intracranial abnormality.
--- NOTE | 2024-03-23 23:28 | CT ---
EXAM: CT Chest Without Intravenous Contrast CLINICAL HISTORY: ITS.REASON CT Reason: To rule out active bleed TECHNIQUE: Axial computed tomography images of the chest without intravenous contrast. CTDI is 6.5 mGy and DLP is 501.8 mGy-cm. This CT exam was performed using one or more of the following dose reduction techniques: automated exposure control, adjustment of the mA and/or kV according to patient size, and/or use of iterative reconstruction technique. COMPARISON: Chest CT 03/23/2024 at 4:45 AM FINDINGS: Lungs: Multifocal airspace opacities involving all lobes. Consolidation in the right middle lobe with central cavitation. Pleural space: No pleural effusion or pneumothorax. Heart: Unremarkable. Bones/joints: Fractured sternum in multiple anterior rib fractures bilaterally. Soft tissues: Unremarkable. Vasculature: Unremarkable. Lymph nodes: Unremarkable. IMPRESSION: 1. Multifocal airspace opacities involving all lobes. Consolidation in the right middle lobe with central cavitation. 2. Fractured sternum in multiple anterior rib fractures bilaterally. EXAM: CT Abdomen and Pelvis Without Intravenous Contrast CLINICAL HISTORY: ITS.REASON CT Reason: To rule out active bleed TECHNIQUE: Axial computed tomography images of the abdomen and pelvis without intravenous contrast. CTDI is 6.5 mGy and DLP is 501.8 mGy-cm. This CT exam was performed using one or more of the following dose reduction techniques: automated exposure control, adjustment of the mA and/or kV according to patient size, and/or use of iterative reconstruction technique. COMPARISON: Chest CT 03/23/2024 at 4:45 AM FINDINGS: ABDOMEN: Liver: Unremarkable. Gallbladder and bile ducts: Unremarkable. Pancreas: Unremarkable. Spleen: Unremarkable. Adrenals: Unremarkable. Kidneys and ureters: Unremarkable. No obstructing stones. No hydronephrosis. Stomach and bowel: Unremarkable. PELVIS: Appendix: No findings to suggest acute appendicitis. Bladder: Queen catheter in the bladder. Reproductive: Unremarkable as visualized. ABDOMEN and PELVIS: Intraperitoneal space: Large amount of hemoperitoneum throughout the abdomen and pelvis. Cannot evaluate for active hemorrhage on the noncontrast scan. The amount of blood products in the upper abdomen is increased from the chest CT performed earlier in the day. No free air. Bones/joints: No acute fracture. Soft tissues: Unremarkable. Vasculature: Unremarkable. Lymph nodes: Unremarkable. Tubes, lines and devices: Esophagogastric tube terminates within the stomach. IMPRESSION: Large amount of hemoperitoneum throughout the abdomen and pelvis. Cannot evaluate for active hemorrhage on a noncontrast scan but the amount of blood products in the upper abdomen is increased from the chest CT performed earlier in the day. <MYCVCSECTION> Communications: 03/23/24 23:40 Call Doctor Regarding Above results, called JOANA Burgos / Dr. Tenorio on 03/23 23:40 (-05:00)
[2024-03-23] MEDS: AMIODARONE 450 MG in DEXTROSE 5% IN WATER 250 ML IV SCH (23:41)
[2024-03-24] MEDS: QUEtiapine 100 MG TAB PO SCH (01:03)
--- NOTE | 2024-03-24 01:08 | CT ---
EXAM: CT Chest With Intravenous Contrast CLINICAL HISTORY: massive hemoperitoneum TECHNIQUE: Axial computed tomography images of the chest with intravenous contrast. CTDI is 6.6 mGy and DLP is 482.7 mGy-cm. This CT exam was performed using one or more of the following dose reduction techniques: automated exposure control, adjustment of the mA and/or kV according to patient size, and/or use of iterative reconstruction technique. COMPARISON: CTA chest performed at 0445 hrs. FINDINGS: Limitations: There is respiratory artifact, which degrades image quality on multiple image slices. Lungs: Abnormal irregular consolidation involving the lateral right middle lobe with irregular lobulated cavitation noted centrally, measuring 2.3 x 2.4 x 3.4 cm. Diffuse emphysematous changes throughout the lungs with scattered areas of hyperattenuation. Additional patchy areas of opacity noted in the superior segment both lower lobes, left greater than right. Diffuse interlobular septal thickening. Pleural space: Small volume right pleural effusion layering posteriorly. No loculation. No pneumothorax. Heart: The cardiac chambers are normal. No significant pericardial effusion. No significant coronary artery calcifications. Bones/joints: Unremarkable. No acute fracture. No dislocation. Soft tissues: Unremarkable. Vasculature: The thoracic aorta is normal in caliber without dissection or aneurysm. Lymph nodes: Unremarkable. No enlarged lymph nodes. Tubes, lines and devices: A nasogastric tube is noted traversing the gas distended esophagus. The endotracheal tube measures approximately 2. 5 cm from the stephanie. A right internal jugular approach central venous catheter is noted with the tip at the cavoatrial junction. IMPRESSION: 1. Abnormal irregular consolidation involving the lateral right middle lobe with irregular lobulated cavitation noted centrally, measuring 2.3 x 2.4 x 3.4 cm. Differential consideration includes necrotizing pneumonia or a centrally necrotic neoplasm. Granulomatous disease is also a consideration. 2. Diffuse emphysematous changes throughout the lungs with scattered areas of hyperattenuation. Additional patchy areas of opacity noted in the superior segment both lower lobes, left greater than right. Diffuse interlobular septal thickening, increased from the previous examination. Suspect a component of advancing interstitial edema. Additional airspace opacities are new from the previous CTA examination, favoring asymmetric edema over developing additional areas of pneumonia. However, endobronchial spread of infection may be present. 3. Small volume right pleural effusion layering posteriorly, stable. No loculation. EXAM: CT Abdomen and Pelvis With Intravenous Contrast CLINICAL HISTORY: massive hemoperitoneum TECHNIQUE: Axial computed tomography images of the abdomen and pelvis with intravenous contrast. CTDI is 6.8 mGy and DLP is 392.4 mGy-cm. This CT exam was performed using one or more of the following dose reduction techniques: automated exposure control, adjustment of the mA and/or kV according to patient size, and/or use of iterative reconstruction technique. COMPARISON: CT abdomen and pelvis without contrast performed at 2150 hrs. FINDINGS: Limitations: There is respiratory artifact, which degrades image quality on multiple image slices. Lung bases: Please see the CT report of the chest. ABDOMEN: Liver: The liver demonstrates heterogeneous attenuation with variable areas of hypoattenuation and hyperattenuation noted. Gallbladder and bile ducts: Hyperdense material noted in the gallbladder. Evaluation is somewhat limited by extensive hemoperitoneum. No ductal dilation. Pancreas: Unremarkable. No mass. No ductal dilation. Spleen: Unremarkable. No splenomegaly. Adrenals: Unremarkable. No mass. Kidneys and ureters: Unremarkable. No solid mass. No hydronephrosis. Stomach and bowel: No bowel obstruction. Nonspecific mucosal prominence of the jejunal loops. The colon demonstrates mild stool burden. PELVIS: Appendix: No findings to suggest acute appendicitis. Bladder: A Queen catheter is noted in the decompressed bladder. Reproductive: Unremarkable as visualized. ABDOMEN and PELVIS: Intraperitoneal space: Large volume hemoperitoneum is again noted throughout the abdomen and pelvis with mixed hyperdense components throughout the pelvis, Lyles's pouch and surrounding the liver and spleen. No free air. Bones/joints: No acute fracture. No dislocation. Soft tissues: Unremarkable. Vasculature: When compared to the previous noncontrast examination, there is abnormal active arterial extravasation which appears to arise from the extrahepatic segment of the proximal left hepatic artery with extension to the left eli hepatis near the falciform ligament. The collection is larger on delayed three-minute delayed imaging. The aorta demonstrates atherosclerotic calcification but is normal in caliber without dissection or aneurysm. The celiac artery and superior mesenteric arteries are small in caliber. Lymph nodes: Unremarkable. No enlarged lymph nodes. Tubes, lines and devices: A nasogastric tube terminates in the distal body of the stomach. IMPRESSION: 1. When compared to the previous noncontrast examination, there is abnormal active arterial extravasation which appears to arise from the extrahepatic segment of the proximal left hepatic artery with extension to the left eli hepatis near the falciform ligament. The collection is larger on delayed three-minute delayed imaging. The appearance is not typical of an aneurysm, as suggested on the previous CTA examination of the chest. 2. Large volume hemoperitoneum is again noted throughout the abdomen and pelvis with mixed hyperdense components throughout the pelvis, Lyles's pouch and surrounding the liver and spleen. 3. The celiac artery and superior mesenteric arteries are small in caliber. This is presumably related to vasospasm from active bleeding. <MYCVCSECTION> Communications: 03/24/24 01:03 Call Doctor Regarding Active Bleeding in any site, called Sami Bardales on 03/24 01:03 (-05:00)
[2024-03-24] MEDS: levETIRAcetam IV 500 MG/5 ML VIAL IVP ONE (01:23)
[2024-03-24] MEDS: CHLORHEXIDINE GLUCONATE 15 ML CUP MUCOUS MEM SCH (01:23)
--- NOTE | 2024-03-24 02:02 | P.CNPUL ---
History of Present Illness Consult date: 03/24/24 Requesting physician: Violeta Muniz Reason for consult: other Chief complaint: In hospital cardiac arrest History of present illness: Patient is a 68-year-old female with past medical history significant for hyperlipidemia, hypertension, CVA, hypothyroidism, and current everyday smoker. Patient originally presented to the emergency department back on March 22, with a presentation of right middle lobe pneumonia. She was admitted to the general medical floor, and was in the emergency department as a overflow patient. Yesterday evening, patient had a PEA cardiac arrest with reported downtime of 13 minutes per code record. During the cardiac resuscitation attempt patient then went into ventricular fibrillation, patient was defibrillated with a total of 125 J. ROSC was achieved, presenting rhythm was sinus tachycardia. Patient was then intubated by the APPLIQUE CUTTER. Central line access was achieved by sound physician. It was not until after the patient's cardiac event that we were consulted. Patient was transferred to the intensive care unit in critical condition. Requiring a high dose of vasopressors and currently in the form of norepinephrine which is infusing at 0.48 mcg/kg/min as well as vasopressin 0.04 units/min.. Normal saline infusing at 100 mL/h. Patient did just receive a 1 L crystalloid bolus. patient was started on amiodarone protocol earlier during the cardiac resuscitation. Patient remains intubated the mechanical ventilator. She is asynchronous with the ventilator, breathing above set rate,. Currently, not following any commands. Does not withdraw to painful stimuli, pupils are fixed and dilated and with horizontal nystagmus. Brain CT unremarkable for acute process. Propofol will need to be started. Postintubation ABGs include a PaO2 of greater than 420, pCO2 of 58, pH of 7.19. Postintubation chest x-ray shows endotracheal tube approximately 3.1 cm above the stephanie. Nasogastric tube courses below the diaphragm. Right internal jugular central venous catheter with the distal tip likely in the right atrium. Current ventilator settings include assist-control, respiratory rate 22, tidal volume 400, FiO2 40%, PEEP 5. Prior chest CTA did not show any evidence of pulmonary embolus. 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 As well as a dense consolidation in the right middle lobe. Postcardiac arrest lab work significant for a severely low hemoglobin of 4.9 g/dL. Abdomen is firm and distended. Patient had workup to investigate acute blood loss. Chest/abdomen/pelvis CT without contrast, which was a limited exam due to lack of IV contrast. There was a large amount of hemoperitoneum throughout the abdomen and pelvis. Also, notable multifocal airspace opacities involving all lobes. Consolidation in the right middle lobe with central cavitation. Fractured sternum and multiple anterior rib fractures bilaterally. Due to the massive abdominal hemorrhaging, we have consulted general surgery. We are going to send her down for another scan this time with contrast to an attempt to better localize the source of bleeding. CBC includes a WBC count of 13.4, hemoglobin 4.9, hematocrit 15.3, platelets 245. BMP: Sodium 142, potassium 3.3, chloride 106, serum bicarb 22, BUN 11, creatinine 0.53, glucose 310. Lactic acid was elevated 11.6 and has not been repeated as of yet. Calcium was 6.4. Patient is currently empirically covered on a combination of azithromycin and Rocephin. She is status post 3 units of PRBCs. A repeat CBC is pending. We are working on sending this patient down for repeat scan of her chest/abdomen/pelvis. Current condition remains critical. Family is at [facility], I have discussed the patient's overall status and prognosis. She remains a full code at this time. Review of Systems ROS unobtainable: due to endotracheal tube, due to mental status Past Medical History Past Medical History: Hyperlipidemia, Hypertension, Thyroid Disorder Additional Past Medical History / Comment(s): Possible Alzheimers History of Any Multi-Drug Resistant Organisms: None Reported Past Surgical History: Section Past Anesthesia/Blood Transfusion Reactions: Postoperative Nausea & Vomiting (PONV) Past Psychological History: Depression, PTSD Smoking Status: Current every day smoker Past Alcohol Use History: None Reported Past Drug Use History: None Reported - Past Family History Mother Family Medical History: Coronary Artery Disease (CAD) Medications and Allergies Home Medications Medication Instructions Recorded Confirmed Type QUEtiapine FUMARATE 100 mg PO HS 03/25/22 03/23/24 History Sertraline [Zoloft] 100 mg PO DAILY 03/25/22 03/23/24 History clonazePAM [KlonoPIN] 1 mg PO BID 10/24/23 03/23/24 History Atorvastatin [Lipitor] 40 mg PO DAILY 30 Days #30 tab 10/26/23 03/23/24 Rx Clopidogrel [Plavix] 75 mg PO DAILY 20 Days #20 tab 10/26/23 03/23/24 Rx Allergies Allergy/AdvReac Type Severity Reaction Status Date / Time amoxicillin Allergy Unknown Verified 03/23/24 10:32 Childhood Physical Exam Vitals: Vital Signs Temp Pulse Resp BP Pulse Ox FiO2 03/23/24 23:40 109 H 32 H 143/87 93 L 03/23/24 23:30 112 H 11 L 143/87 93 L 03/23/24 23:28 40 03/23/24 23:20 112 H 12 143/87 93 L 03/23/24 23:10 98.2 F 107 H 21 143/87 92 L 40 03/23/24 22:50 98.2 F 112 H 32 H 143/87 92 L 03/23/24 22:40 112 H 33 H 143/87 92 L 03/23/24 22:30 106 H 32 H 143/87 94 L 03/23/24 21:40 108 H 29 H 63/27 92 L 03/23/24 21:30 106 H 28 H 92 L 03/23/24 21:20 108 H 23 77/57 75 L 03/23/24 21:10 108 H 28 H 03/23/24 21:00 108 H 2 L 03/23/24 20:50 113 H 29 H 94 L 03/23/24 20:40 116 H 26 H 85 L 03/23/24 20:30 120 H 26 H 94 L 03/23/24 20:20 115 H 27 H 94 L 03/23/24 20:10 109 H 29 H 95 03/23/24 20:00 111 H 26 H 99 03/23/24 19:57 112 H 03/23/24 19:50 111 H 14 179/72 98 03/23/24 19:45 40 03/23/24 19:44 111 H 03/23/24 19:40 110 H 25 H 93 L 03/23/24 19:30 109 H 25 H 159/110 95 03/23/24 19:20 105 H 24 81/53 56 L 03/23/24 19:10 104 H 27 H 81/53 03/23/24 19:00 102 H 23 81/53 03/23/24 18:55 40 03/23/24 18:50 101 H 22 81/53 03/23/24 18:40 101 H 21 81/53 03/23/24 18:30 102 H 19 81/53 03/23/24 18:21 101 H 17 82/56 03/23/24 17:31 100 03/23/24 17:30 100 03/23/24 17:20 129/110 03/23/24 17:10 109 H 12 79/62 03/23/24 17:00 123 H 131/111 03/23/24 16:50 80 17 167/87 80 L 03/23/24 16:40 82 19 167/87 03/23/24 16:30 81 20 167/87 03/23/24 16:20 86 21 167/87 03/23/24 16:10 81 17 167/87 03/23/24 16:00 87 6 L 171/94 03/23/24 15:50 84 15 171/94 03/23/24 15:40 79 19 166/104 03/23/24 15:30 82 20 166/104 03/23/24 15:20 83 21 166/104 03/23/24 15:10 84 19 166/104 03/23/24 15:00 81 21 166/104 03/23/24 14:50 77 18 166/104 03/23/24 14:40 90 11 L 166/104 03/23/24 14:30 82 19 166/104 03/23/24 14:20 79 9 L 166/104 03/23/24 14:10 78 13 166/104 03/23/24 14:00 78 9 L 158/93 03/23/24 13:50 84 14 158/93 03/23/24 13:40 78 20 158/93 03/23/24 13:30 80 16 158/93 03/23/24 13:20 95 13 158/93 03/23/24 13:10 79 19 158/93 03/23/24 13:00 81 20 158/93 03/23/24 12:50 93 31 H 158/93 03/23/24 12:40 80 6 L 158/93 03/23/24 12:30 81 0 L 158/93 03/23/24 12:20 81 5 L 158/93 03/23/24 12:10 79 0 L 158/93 03/23/24 12:00 79 19 137/85 03/23/24 10:00 86 18 137/85 96 03/23/24 06:42 98 16 116/82 95 03/23/24 04:16 97.6 F 03/23/24 03:48 60 16 151/85 94 L 03/23/24 03:00 89 16 132/74 92 L 03/23/24 00:47 98.0 F 77 16 118/59 91 L Intake and Output 03/23/24 03/23/24 03/24/24 14:59 22:59 06:59 Intake Total 720 51.328 Output Total 20 15 Balance 700 36.328 Intake: IV 100 Calcium Gluconate in NaCl 100 1 gm In Saline 1 100ml. bag @ 100 mls/hr IVPB ONCE ONE Rx#:[id number] Intake, IV Titration 51.328 Amount Norepinephrine 8 mg In 51.328 Sodium Chloride 0.9% 250 ml @ 0.03 MCG/KG/MIN 3.16 mls/hr IV .Q24H [facility] Rx#: [id number] Blood Product 620 Rc As-1 Unit 310 [id number] Rc As-1 Unit 310 [id number] Rc As-1 Unit 0 [id number] Output: Urine 20 15 ABP, PAP, CO, CI - Last 8 Hours Arterial Blood Pressure 123/89 Arterial Blood Pressure 125/82 Arterial Blood Pressure 121/87 Arterial Blood Pressure 121/78 Arterial Blood Pressure 106/71 Arterial Blood Pressure 101/66 Arterial Blood Pressure 107/58 Arterial Blood Pressure 94/64 Arterial Blood Pressure 78/57 Arterial Blood Pressure 78/54 Arterial Blood Pressure 63/47 Arterial Blood Pressure 68/49 Arterial Blood Pressure 74/53 Arterial Blood Pressure 82/56 Arterial Blood Pressure 80/59 Arterial Blood Pressure 83/59 Arterial Blood Pressure 78/56 Arterial Blood Pressure 86/55 Arterial Blood Pressure 56/38 Arterial Blood Pressure 66/44 Arterial Blood Pressure 78/48 Arterial Blood Pressure 89/48 Arterial Blood Pressure 88/47 Arterial Blood Pressure 92/49 Arterial Blood Pressure 97/52 Arterial Blood Pressure 12/12 Arterial Blood Pressure 78/51 GENERAL EXAM: Currently intubated mechanical ventilator, breathing above set rate, not sedated, not following any commands. HEAD: Normocephalic and atraumatic EYES: Pupils are fixed and dilated with horizontal nystagmus NOSE: Clear with pink turbinates. THROAT: No erythema or exudates. NECK: No masses, no JVD. Right IJ central line catheter without any obvious hematoma CHEST: No chest wall deformity. Equal chest rise, no obvious subcutaneous emphysema or crepitus LUNGS: Equal air entry with, right sided rhonchi. Intubated mechanical ventilator, breathing above set rate, peak pressures are 20, on minimal to no endotracheal secretions. CVS: S1 and S2 normal with no audible murmur, regular rhythm. No extra heart sounds ABDOMEN: No hepatosplenomegaly, active bowel sounds, no guarding or rigidity. SPINE: No scoliosis or deformity SKIN: No rashes CENTRAL NERVOUS SYSTEM: Intubated mechanical ventilator, without sedation, not following any purposeful commands, does not withdraw to painful stimuli in all 4 extremities EXTREMITIES: There is no peripheral edema, clubbing, or cyanosis. Peripheral pulses are intact. Results - Laboratory Findings CBC and BMP: 03/23/24 18:45 03/23/24 18:45 ABG ABG pH 7.19 (7.35-7.45) L* 03/23/24 18:45 ABG pCO2 58 mmHg (35-45) H 03/23/24 18:45 ABG pO2 >420 mmHg (83-108) H 03/23/24 18:45 ABG O2 Saturation >100.0 % (94-97) H 03/23/24 18:45 PT/INR, D-dimer PT 12.2 sec (10.0-12.5) 03/22/24 20:07 INR 1.1 (<1.2) 03/22/24 20:07 Abnormal lab findings: Abnormal Labs 03/22/24 03/22/24 03/23/24 20:07 20:07 01:13 WBC 15.1 H RBC Hgb Hct Neutrophils # 13.2 H Lymphocytes # 0.8 L ABG pH ABG pCO2 ABG pO2 ABG O2 Saturation Hemoglobin Sodium 132 L Potassium Creatinine 0.41 L Glucose 141 H POC Glucose (mg/dL) 215 H Plasma Lactic Acid Kody Calcium Magnesium Total Bilirubin 1.6 H AST 85 H ALT 59 H Alkaline Phosphatase 148 H Urine Appearance Urine Protein Urine Glucose (UA) Urine Blood Ur Leukocyte Esterase Urine RBC Urine WBC Urine Bacteria Urine Mucus Urine Yeast (Budding) Crossmatch 03/23/24 03/23/24 03/23/24 17:06 17:26 18:45 WBC 13.4 H RBC 1.57 L Hgb 4.9 L* D Hct 15.3 L* Neutrophils # 10.9 H Lymphocytes # ABG pH ABG pCO2 ABG pO2 ABG O2 Saturation Hemoglobin Sodium Potassium Creatinine Glucose POC Glucose (mg/dL) 133 H 315 H Plasma Lactic Acid Kody Calcium Magnesium Total Bilirubin AST ALT Alkaline Phosphatase Urine Appearance Urine Protein Urine Glucose (UA) Urine Blood Ur Leukocyte Esterase Urine RBC Urine WBC Urine Bacteria Urine Mucus Urine Yeast (Budding) Crossmatch 03/23/24 03/23/24 03/23/24 18:45 18:45 18:45 WBC RBC Hgb Hct Neutrophils # Lymphocytes # ABG pH 7.19 L* ABG pCO2 58 H ABG pO2 >420 H ABG O2 Saturation >100.0 H Hemoglobin 4.8 L* Sodium Potassium 3.3 L Creatinine Glucose 310 H POC Glucose (mg/dL) Plasma Lactic Acid Kody 11.6 H* Calcium 6.4 L* Magnesium 5.4 H* Total Bilirubin AST ALT Alkaline Phosphatase Urine Appearance Urine Protein Urine Glucose (UA) Urine Blood Ur Leukocyte Esterase Urine RBC Urine WBC Urine Bacteria Urine Mucus Urine Yeast (Budding) Crossmatch 03/23/24 03/23/24 03/23/24 18:52 21:13 23:19 WBC RBC Hgb Hct Neutrophils # Lymphocytes # ABG pH ABG pCO2 ABG pO2 ABG O2 Saturation Hemoglobin Sodium Potassium Creatinine Glucose POC Glucose (mg/dL) 154 H Plasma Lactic Acid Kody Calcium Magnesium Total Bilirubin AST ALT Alkaline Phosphatase Urine Appearance Turbid H Urine Protein 2+ H Urine Glucose (UA) 2+ H Urine Blood Moderate H Ur Leukocyte Esterase Trace H Urine RBC 55 H Urine WBC 85 H Urine Bacteria Moderate H Urine Mucus Occasional H Urine Yeast (Budding) Many H Crossmatch See Detail - Diagnostic Findings Chest x-ray: image reviewed CT scan - chest: image reviewed Assessment and Plan Assessment: Massive hemoperitoneum/hemorrhaging, chest/abdomen/pelvis CT without contrast, which was a limited exam due to lack of IV contrast. There was a large amount of hemoperitoneum throughout the abdomen and pelvis. Acute hypotension and shock, secondary to above, superimposed sepsis/septic shock is also a possibility In hospital cardiac arrest, initial rhythm was PEA and subsequently ventricular fibrillation, patient was defibrillated once with 125 J, ROSC was achieved with presenting rhythm of sinus tachycardia. Estimated downtime per code record 13 minutes. Multiple rib fractures and sternal fracture as reported in CT, secondary to CPR Acute hypoxemic and hypercapnic respiratory failure, secondary to above, postintubation chest x-ray showing to the endotracheal tube terminating approximately 3.1 cm above the stephanie, nasogastric tube coursing below the diaphragm, right internal jugular venous catheter with the distal tip likely within the right atrium. Right middle lobe community-acquired pneumonia Combined respiratory and metabolic acidosis and lactic acidosis Hemorrhaging and acute blood loss anemia, hemoglobin 4.9 g/dL, status post 3 units PRBCs Hypokalemia, replace per protocol Hypocalcemia, status post 1 g calcium gluconate History of hypertension History of hyperlipidemia History of CVA Plan: Patient's most recent hemoglobin 4.9 g/dL, patient is status post 3 units PRBCs. We are waiting on a repeat CBC. Send patient for repeat CT chest/abdomen/pelvis with contrast. General surgery is consulted and aware. She remains profoundly hypotensive, currently on high-dose vasopressors in the form of norepinephrine at 0.48 mcg/kg/min as well as vasopressin at 0.04 units/min. Central line and arterial line established previously Monitor neurologic function, will load patient with Keppra, the possibility of a noxic brain injury is a concern, consult neurology. Start the patient on propofol for sedation and ventilator synchrony Continue with empiric antibiotics Dr. Hair in house, case was discussed; we are going to repeat CT ABD/CHEST/Pelvis with contrast Transfuse PRBCs for hemoglobin less than 7 g/dL We are awaiting further surgical goal recommendations Patient's overall prognosis is guarded, she remains in critical condition. I have personally seen and examined the patient, performed the documentation and the assessment and plan as written. Number of minutes spent on the visit:20 Time with Patient: Greater than 30
[2024-03-24 02:13] LABS: HCT 33.1 % (34.0-46.0); MCH 29.9 pg (25.0-35.0); MCHC 33.1 g/dL (31.0-37.0); Mean Platelet Volume 9.4; Platelet Count 232 k/uL (150-450); RBC 3.67 m/uL (3.80-5.40); RDW 14.9 % (11.5-15.5); WBC 21.4 k/uL (3.8-10.6)
[2024-03-24 02:43] LABS: MCV 90.2 fL (80.0-100.0)
[2024-03-24 02:57] LABS: HCT 35.6 % (34.0-46.0); HGB 12.1 gm/dL (11.4-16.0); MCH 30.5 pg (25.0-35.0); MCV 89.8 fL (80.0-100.0); Mean Platelet Volume 9.2; Platelet Count 259 k/uL (150-450); RBC 3.97 m/uL (3.80-5.40); RDW 14.6 % (11.5-15.5); WBC 27.1 k/uL (3.8-10.6)
[2024-03-24 04:12] LABS: Band Neutrophils % 1 %; Lymphocytes # (M) 3.79 k/uL (1.0-4.8); Monocytes # (M) 0.81 k/uL (0-1.0); Myelocytes # (M) 0.27 k/uL (0); Myelocytes % 1 %; Neutrophils % (M) 82 %; Nucleated Red Blood Cells 0 /100 WBC (0-0); Total Cells Counted 200
[2024-03-24 04:16] LABS: Crenated RBC Present; Tear Drop Cells Present
--- NOTE | 2024-03-24 05:04 | P.DS ---
Providers Date of admission: 03/22/24 22:06 Expected date of discharge: 03/24/24 Attending physician: Violeta Muniz MD Consults: 03/23/24 17:28 Consult Physician Routine Consulting Provider: Erica Hair Consult Reason/Comments: cpr Do you want consulting provider notified?: Already Contacted 03/23/24 18:43 Consult Physician Routine Consulting Provider: Theron Vargas Consult Reason/Comments: Nystagmus Do you want consulting provider notified?: Already Contacted 03/23/24 20:33 Consult Physician Routine Consulting Provider: Juan Pedro Consult Reason/Comments: Cardiac Arrest Do you want consulting provider notified?: Yes 03/23/24 23:34 Consult Physician Stat Consulting Provider: Jose Tenorio Consult Reason/Comments: massive hemoperotineum Do you want consulting provider notified?: Yes 03/24/24 01:27 Consult Physician Stat Consulting Provider: Robert Zavala Consult Reason/Comments: L Hepatic Artery Hemorrhage Do you want consulting provider notified?: Already Contacted Primary care physician: [facility] Course: The patient is a 68-year-old female with a PMH of hypertension, hyperlipidemia, hypothyroidism, history of CVA, and tobacco abuse who had initially presented to the emergency room on 03/22 with complaints of cough and shortness of breath. The patient was admitted for community-acquired pneumonia and was started on IV antibiotics. A right upper quadrant ultrasound was obtained due to transaminitis and elevated total bilirubin with ultrasound showing no acute abnormalities. A chest CTA was also obtained due to an elevated D-dimer which revealed no findings of pulmonary embolism. On the evening of 03/23, the patient suffered a cardiac arrest with PEA and V-fib with total downtime of 12 minutes. The patient was defibrillated with 120 J and was intubated. She was started on IV pressors with vasopressin and Levophed. Laboratory evaluation post-arrest revealed a hemoglobin of 4.9, down from 12 from admission with examination showing a firm and distended abdomen. A CT chest/abdomen/pelvis revealed large amounts of hemoperitoneum with subsequent CT angiogram revealing arterial extravasation, likely from the extrahepatic segment of the proximal left hepatic artery. The case was discussed with vascular surgery on-call in detail. A transfer was recommended for the patient to a tertiary care facility for IR embolization of the bleed. Informed by on-call provider that the patient could not undergo embolization at our facility. Subsequently contacted [facility] where the patient was accepted. The family was in agreement with transfer. Discharge diagnosis: Hemorrhagic shock with left hepatic artery hemorrhage with acute blood loss anemia; status post cardiac arrest; lactic acidosis; hypokalemia; community-acquired pneumonia; chronic conditions: Hypertension, hyperlipidemia, hypothyroidism, history of CVA A total of 40 minutes of time were spent preparing this complex discharge summary. Patient Condition at Discharge: Critical Plan - Discharge Summary Discharge Rx Participant: No New Discharge Prescriptions: No Action Sertraline [Zoloft] 100 mg PO DAILY QUEtiapine FUMARATE 100 mg PO HS clonazePAM [KlonoPIN] 1 mg PO BID Atorvastatin [Lipitor] 40 mg PO DAILY 30 Days #30 tab Clopidogrel [Plavix] 75 mg PO DAILY 20 Days #20 tab Discharge Medication List QUEtiapine FUMARATE 100 mg PO HS 03/25/22 [History] Sertraline [Zoloft] 100 mg PO DAILY 03/25/22 [History] clonazePAM [KlonoPIN] 1 mg PO BID 10/24/23 [History] Atorvastatin [Lipitor] 40 mg PO DAILY 30 Days #30 tab 10/26/23 [Rx] Clopidogrel [Plavix] 75 mg PO DAILY 20 Days #20 tab 10/26/23 [Rx] Follow up Appointment(s)/Referral(s): Nona Trent MD [Primary Care Provider] - 1-2 days
[2024-03-24 06:09] LABS: ABG HCO3 11 mmol/L (21-25); ABG Oxygen Saturation 92.3 % (94-97); ABG PCO2 41 mmHg (35-45); ABG PO2 74 mmHg (83-108); ABG TCO2 12 mmol/L (19-24)
[2024-03-24] MEDS: SODIUM BICARB 8.4% 50 ML SYR (1 MEQ/ML) IV STA (06:18)
[2024-03-24 06:20] LABS: ABG PH 7.04 (7.35-7.45); Allen Test Performed? no
[2024-03-24] MEDS: DEXTROSE 5% IN WATER 1,000 ML with SODIUM BICARB (1 MEQ/ML) 150 ML IV SCH (06:45)
[2024-03-24 08:03] VITALS: TEMP 97.6
--- NOTE | 2024-03-24 08:30 | XR ---
EXAMINATION TYPE: XR chest 1V portable DATE OF EXAM: 03/24/2024 5:40 AM COMPARISON: 03/23/2024 CLINICAL INDICATION: Female, 68 years old with history of Tube placement, difficulty breathing, previ ous abnormal chest TECHNIQUE: XR chest 1V portable view(s) obtained. FINDINGS: The heart size is normal. The pulmonary vasculature is normal. Diffuse increased lung markings are present greater in the right lower lung field. Findings are stabl e. Endotracheal tube tip is 3 cm above the stephanie. Nasogastric tube transverses the thorax. Right centra l venous catheter within the proximal right atrium IMPRESSION: 1. Stable appearance of lung infiltrates greater at the right lower lung field. 2. Lines and catheters discussed above [facility], , 03/24/2024 8:27 AM
[2024-03-24] MEDS: PANTOPRAZOLE 40 MG/10 ML VIAL IV SCH (09:02)
[2024-03-24] MEDS: ATORVASTATIN 40 MG TAB PO SCH (09:03)
--- NOTE | 2024-03-24 09:10 | P.PN ---
Subjective Progress Note Date: 03/24/24 Patient had a cardiac arrest last night. She was treated with multiple rounds of epinephrine, bicarb, magnesium, 1 dose of atropine, 1 defibrillation. See CODE BLUE note for further details. Following the code, patient remained hypotensive in the ICU with suspected hypovolemic shock. It was noted that she had significantly lower hemoglobin on ABG and required multiple blood transfusions overnight including 4 of packed red blood cells, 1 FFP, 1 platelets. Pressor requirement was very high, up to 0.5 Levophed, 0.04 vasopressin. Anoxic brain injury suspected, neurology consulted. Transfer to [facility] was attempted after CT chest abdomen pelvis demonstrated findings of arterial bleed into the abdomen likely from severed artery from anterior rib fractures, however, patient was too unstable to manage transfer. Goals of care discussion was had with the family this morning and patient was transition to no code and they would like further information with hospice. Otherwise, ongoing supportive care and replacement of blood products. Gen: In NAD, non-toxic HEENT: normocephalic, atraumatic, hearing acuity is intant, mucous membranes moist CVS: perfusing all extremities well, no pitting edema, Respiratory: symmetric chest expansion, no accessory muscle use, GI: soft, NTTP, ND, : no suprapubic tenderness, no CVA tenderness MSK/Derm: no rashes, cyanosis Neuro: CN II-XII intact, no motor weakness, Psych: cooperative, euthymic mood, judgment and insight is intact Hospital course: Patient is a 68-year-old female with a PMH of hyperlipidemia and hypertension who presented to the emergency room with complaints of shortness of breath and cough. Chest x-ray in the emergency room revealed right lower lobe pneumonia with EKG showing sinus rhythm with short UT interval at 84 bpm with diffuse T wave inversion as reviewed by me. Laboratory evaluation was remarkable oseas kocytosis of 15.1 with a left shift with sodium 132, glucose 141, total bilirubin 1.6, AST 85, ALT 59, and alk phos 148 with proBNP 160. Assessment: Hemorrhagic Shock PEA Cardiac Arrest Followed by VFib/VTach requiring shock Community-acquired pneumonia Abnormal LFTs, suspect secondary to ongoing infection Hyponatremia Chronic conditions: Hypertension, hyperlipidemia Plan: Continue with IV antibiotics including azithromycin and ceftriaxone Continue vasopressors: levophed, vasopressin Continue blood transfusion PRN Pulmonology consulted Neurology consulted Hospice consulted Continue IV fluids with normal saline 100 mL/h Follow-up blood, sputum, and Legionella cultures = NGTD/negative so far Monitor LFTs DVT prophylaxis: Lovenox subcu on hold The patient is admitted with an anticipated greater than than 2 midnight stay for evaluation of pneumonia CODE STATUS: No code Discussed with: Patient Anticipated discharge place: Home Objective - Vital Signs Vital signs: Vital Signs Temp 97.6 F 03/24/24 08:02 Pulse 112 H 03/24/24 08:02 Resp 22 03/24/24 08:02 BP 67/56 03/24/24 08:02 Pulse Ox 95 03/24/24 07:38 FiO2 40 03/24/24 08:02 Intake & Output 03/23/24 03/24/24 03/24/24 18:59 06:59 18:59 Intake Total 2147.269 823.049 Output Total 70 5 Balance 2077.269 818.049 Weight 54.431 kg Intake: IV 400 260 Calcium Gluconate in NaCl 100 1 gm In Saline 1 100ml. bag @ 100 mls/hr IVPB ONCE ONE Rx#:[id number] Dextrose 5% in Water 1, 260 000 ml @ 130 mls/hr IV . Q8H51M ARNULFO with Sodium Bicarb (1 Meq/ml) 150 ml Rx#:[id number] Sodium Chloride 0.9% 1, 300 000 ml @ 100 mls/hr IV . Q10H ARNULFO Rx#:[id number] Intake, IV Titration 249.269 367.049 Amount Norepinephrine 4 mg In 254 Sodium Chloride 0.9% 250 ml @ 0.03 MCG/KG/MIN 6. 221 mls/hr IV .Q24H ARNULFO Rx#:[id number] Norepinephrine 8 mg In 249.269 113.049 Sodium Chloride 0.9% 250 ml @ 0.03 MCG/KG/MIN 3.16 mls/hr IV .Q24H ARNULFO Rx#: [id number] Blood Product 1498 196 Ffp 24 Pher Acda Cnt3 0 196 Unit [id number] Platelet Pheresis Pas 258 Psoralen Unit [id number] Rc As-1 Unit 310 [id number] Rc As-1 Unit 310 [id number] Rc As-1 Unit 310 [id number] Rc As-1 Unit 310 [id number] Output: Urine 70 5 Other: Voiding Method Indwelling Catheter Indwelling Catheter ABP, PAP, CO, CI - Last Documented Arterial Blood Pressure 116/74 - Labs CBC & Chem 7: 03/24/24 02:22 03/23/24 18:45 Labs: Abnormal Lab Results - Last 24 Hours (Table) 03/23/24 03/23/24 03/23/24 Range/Units 17:06 17:26 18:45 WBC 13.4 H (3.8-10.6) k/uL RBC 1.57 L (3.80-5.40) m/uL Hgb 4.9 L* D (11.4-16.0) gm/dL Hct 15.3 L* (34.0-46.0) % Neutrophils # 10.9 H (1.3-7.7) k/uL Neutrophils # (Manual) (1.3-7.7) k/uL Myelocytes # (Manual) (0) k/uL ABG pH (7.35-7.45) ABG pCO2 (35-45) mmHg ABG pO2 (83-108) mmHg ABG HCO3 (21-25) mmol/L ABG Total CO2 (19-24) mmol/L ABG O2 Saturation (94-97) % Hemoglobin (11.4-16.0) gm/dL Potassium (3.5-5.1) mmol/L Glucose (74-99) mg/dL POC Glucose (mg/dL) 133 H 315 H (70-110) mg/dL Plasma Lactic Acid Kody (0.7-2.0) mmol/L Calcium (8.4-10.2) mg/dL Magnesium (1.6-2.3) mg/dL Urine Appearance (Clear) Urine Protein (Negative) Urine Glucose (UA) (Negative) Urine Blood (Negative) Ur Leukocyte Esterase (Negative) Urine RBC (0-5) /hpf Urine WBC (0-5) /hpf Urine Bacteria (None) /hpf Urine Mucus (None) /hpf Urine Yeast (Budding) (None) /hpf Crossmatch 03/23/24 03/23/24 03/23/24 Range/Units 18:45 18:45 18:45 WBC (3.8-10.6) k/uL RBC (3.80-5.40) m/uL Hgb (11.4-16.0) gm/dL Hct (34.0-46.0) % Neutrophils # (1.3-7.7) k/uL Neutrophils # (Manual) (1.3-7.7) k/uL Myelocytes # (Manual) (0) k/uL ABG pH 7.19 L* (7.35-7.45) ABG pCO2 58 H (35-45) mmHg ABG pO2 >420 H (83-108) mmHg ABG HCO3 (21-25) mmol/L ABG Total CO2 (19-24) mmol/L ABG O2 Saturation >100.0 H (94-97) % Hemoglobin 4.8 L* (11.4-16.0) gm/dL Potassium 3.3 L (3.5-5.1) mmol/L Glucose 310 H (74-99) mg/dL POC Glucose (mg/dL) (70-110) mg/dL Plasma Lactic Acid Kody 11.6 H* (0.7-2.0) mmol/L Calcium 6.4 L* (8.4-10.2) mg/dL Magnesium 5.4 H* (1.6-2.3) mg/dL Urine Appearance (Clear) Urine Protein (Negative) Urine Glucose (UA) (Negative) Urine Blood (Negative) Ur Leukocyte Esterase (Negative) Urine RBC (0-5) /hpf Urine WBC (0-5) /hpf Urine Bacteria (None) /hpf Urine Mucus (None) /hpf Urine Yeast (Budding) (None) /hpf Crossmatch 03/23/24 03/23/24 03/23/24 Range/Units 18:52 21:13 23:19 WBC (3.8-10.6) k/uL RBC (3.80-5.40) m/uL Hgb (11.4-16.0) gm/dL Hct (34.0-46.0) % Neutrophils # (1.3-7.7) k/uL Neutrophils # (Manual) (1.3-7.7) k/uL Myelocytes # (Manual) (0) k/uL ABG pH (7.35-7.45) ABG pCO2 (35-45) mmHg ABG pO2 (83-108) mmHg ABG HCO3 (21-25) mmol/L ABG Total CO2 (19-24) mmol/L ABG O2 Saturation (94-97) % Hemoglobin (11.4-16.0) gm/dL Potassium (3.5-5.1) mmol/L Glucose (74-99) mg/dL POC Glucose (mg/dL) 154 H (70-110) mg/dL Plasma Lactic Acid Kody (0.7-2.0) mmol/L Calcium (8.4-10.2) mg/dL Magnesium (1.6-2.3) mg/dL Urine Appearance Turbid H (Clear) Urine Protein 2+ H (Negative) Urine Glucose (UA) 2+ H (Negative) Urine Blood Moderate H (Negative) Ur Leukocyte Esterase Trace H (Negative) Urine RBC 55 H (0-5) /hpf Urine WBC 85 H (0-5) /hpf Urine Bacteria Moderate H (None) /hpf Urine Mucus Occasional H (None) /hpf Urine Yeast (Budding) Many H (None) /hpf Crossmatch See Detail 03/24/24 03/24/24 03/24/24 Range/Units 01:45 02:22 06:04 WBC 21.4 H 27.1 H (3.8-10.6) k/uL RBC 3.67 L (3.80-5.40) m/uL Hgb 11.0 L D (11.4-16.0) gm/dL Hct 33.1 L (34.0-46.0) % Neutrophils # (1.3-7.7) k/uL Neutrophils # (Manual) 22.40 H (1.3-7.7) k/uL Myelocytes # (Manual) 0.27 H (0) k/uL ABG pH 7.04 L* (7.35-7.45) ABG pCO2 (35-45) mmHg ABG pO2 74 L (83-108) mmHg ABG HCO3 11 L (21-25) mmol/L ABG Total CO2 12 L (19-24) mmol/L ABG O2 Saturation 92.3 L (94-97) % Hemoglobin (11.4-16.0) gm/dL Potassium (3.5-5.1) mmol/L Glucose (74-99) mg/dL POC Glucose (mg/dL) (70-110) mg/dL Plasma Lactic Acid Kody (0.7-2.0) mmol/L Calcium (8.4-10.2) mg/dL Magnesium (1.6-2.3) mg/dL Urine Appearance (Clear) Urine Protein (Negative) Urine Glucose (UA) (Negative) Urine Blood (Negative) Ur Leukocyte Esterase (Negative) Urine RBC (0-5) /hpf Urine WBC (0-5) /hpf Urine Bacteria (None) /hpf Urine Mucus (None) /hpf Urine Yeast (Budding) (None) /hpf Crossmatch
[2024-03-24] MEDS: levETIRAcetam IV 1,500 MG in SODIUM CHLORIDE 0.9% 250 ML IVPB ONE (09:31)
[2024-03-24] MEDS ORDERED: MORPHINE SULFATE 4 MG/ML SYRINGE IV PRN (09:46)
[2024-03-24] MEDS ORDERED: MORPHINE SULFATE 2 MG/ML SYRINGE IV PRN (09:46)
[2024-03-24 09:51] LABS: HCT 29.6 % (34.0-46.0); HGB 10.1 gm/dL (11.4-16.0); MCH 30.3 pg (25.0-35.0); MCHC 34.2 g/dL (31.0-37.0); MCV 88.6 fL (80.0-100.0); Mean Platelet Volume 8.8; Platelet Count 245 k/uL (150-450); RBC 3.34 m/uL (3.80-5.40); RDW 15.4 % (11.5-15.5); WBC 23.1 k/uL (3.8-10.6)
[2024-03-24 09:53] VITALS: BP 79/64
[2024-03-24] MEDS: MORPHINE SULFATE (100 MG/2 ML) 100 MG in SODIUM CHLORIDE 0.9% 100 ML IV SCH (10:59)
[2024-03-24] MEDS: SCOPOLAMINE 1 MG/72 HR PATCH TRANSDERM SCH (11:00)
[2024-03-24] MEDS: MORPHINE SULFATE 4 MG/ML SYRINGE IVP ONE (11:00)
[2024-03-24] MEDS: ATROPINE OPHTH SOLN 1% 5ML BTL SUBLINGUAL PRN (11:00)
[2024-03-24] MEDS: LORazepam 2 MG/ML INJ IV PRN (11:00)
--- NOTE | 2024-03-24 12:18 | P.DS ---
Providers Date of admission: 03/22/24 22:06 Expected date of discharge: 03/24/24 Attending physician: Violeta Muniz MD Consults: 03/23/24 17:28 Consult Physician Routine Consulting Provider: Erica Hair Consult Reason/Comments: cpr Do you want consulting provider notified?: Already Contacted 03/23/24 18:43 Consult Physician Routine Consulting Provider: Theron Vargas Consult Reason/Comments: Nystagmus Do you want consulting provider notified?: Already Contacted 03/23/24 23:34 Consult Physician Stat Consulting Provider: Jose Tenorio Consult Reason/Comments: massive hemoperotineum Do you want consulting provider notified?: Yes 03/24/24 01:27 Consult Physician Stat Consulting Provider: Robert Zavala Consult Reason/Comments: L Hepatic Artery Hemorrhage Do you want consulting provider notified?: Already Contacted Primary care physician: [facility] Course: Hemorrhagic Shock PEA Cardiac Arrest Followed by VFib/VTach requiring shock Community-acquired pneumonia Abnormal LFTs, suspect secondary to ongoing infection Hyponatremia Chronic conditions: Hypertension, hyperlipidemia Hospital course: Patient is a 68-year-old female with a PMH of hyperlipidemia and hypertension who presented to the emergency room with complaints of shortness of breath and cough. Chest x-ray in the emergency room revealed right lower lobe pneumonia with EKG showing sinus rhythm with short MS interval at 84 bpm with diffuse T wave inversion as reviewed by me. Laboratory evaluation was remarkable leukocytosis of 15.1 with a left shift with sodium 132, glucose 141, total bilirubin 1.6, AST 85, ALT 59, and alk phos 148 with proBNP 160. She was admitted with initial treatment plan to include abx, IVF, nebulizers, and steroids. Patient had a cardiac arrest on 03/23. She was treated with multiple rounds of epinephrine, bicarb, magnesium, 1 dose of atropine, 1 defibrillation. See CODE BLUE note for further details. Following the code, patient remained hypotensive in the ICU with suspected hypovolemic shock. It was noted that she had significantly lower hemoglobin on ABG and required multiple blood transfusions overnight including 4 of packed red blood cells, 1 FFP, 1 platelets. Pressor requirement was very high, up to 0.5 Levophed, 0.04 vasopressin. Anoxic brain injury suspected, neurology consulted. Transfer to [facility] was attempted after CT chest abdomen pelvis demonstrated findings of arterial bleed into the abdomen likely from severed artery from anterior rib fractures, however, patient was too unstable to manage transfer. Goals of care discussion was had with the family this morning and patient was transition to no code and they would like to pursue comfort care. Pt on 03/24 from complications of hemorrhagic shock and pneumonia Plan - Discharge Summary Discharge Rx Participant: No New Discharge Prescriptions: No Action Sertraline [Zoloft] 100 mg PO DAILY QUEtiapine FUMARATE 100 mg PO HS clonazePAM [KlonoPIN] 1 mg PO BID Atorvastatin [Lipitor] 40 mg PO DAILY 30 Days #30 tab Clopidogrel [Plavix] 75 mg PO DAILY 20 Days #20 tab Discharge Medication List QUEtiapine FUMARATE 100 mg PO HS 03/25/22 [History] Sertraline [Zoloft] 100 mg PO DAILY 03/25/22 [History] clonazePAM [KlonoPIN] 1 mg PO BID 10/24/23 [History] Atorvastatin [Lipitor] 40 mg PO DAILY 30 Days #30 tab 10/26/23 [Rx] Clopidogrel [Plavix] 75 mg PO DAILY 20 Days #20 tab 10/26/23 [Rx] Follow up Appointment(s)/Referral(s): Nona Trent MD [Primary Care Provider] - 1-2 days
--- NOTE | 2024-03-24 14:01 | P.PN ---
Progress Note - Text Progress Note Date: 03/24/24 Notified by the nurse that patient's family is pursuing comfort care measures. As result will avoid any work-up. Please notify neurology team if any further concerns.
[2024-03-24 14:29] VITALS: PULSE 0; RESP 0
--- NOTE | 2024-03-27 11:52 | CDI ---
Documentation Clarification Form Date: 03/27/2024 11:36:34 AM From: Gerri Ryan Admit Date: 03/22/2024 10:06:00 PM Patient Name: Lucila Peguero Visit Number: [id number] Discharge Date: 03/24/2024 02:26:00 PM ATTENTION: The Clinical Documentation Specialists (CDI) and [facility] Coding Staff appreciate your assistance in clarifying documentation. Please respond to the clarification below the line at the bottom and electronically sign. The CDI & [facility] Coding staff will review the response and follow-up if needed. Please note: Queries are made part of the Legal Health Record. If you have any questions, please contact the author of this message via ITS. Doctor/Provider: Violeta Muniz, Possible sepsis/septic shock is documented is documented in the 03/24 consult which may lack sufficient clinical evidence/support in the medical record. Additional clarification is requested. History/Risk Factors: Smoker, HTN, HLD, COPD, Pneumonia Clinical Indicators: Massive hemoperitoneum/hemorrhaging chest/abdomen/pelvis CT without contrast. Admission Date 03/22: T 98.7, P 84, R 18, BP 98/62, O2 99/91, WBC 15.1, Neutrophils 13.2, Total Bilirubin 1.6, AST 85, ALT 59, Alkaline Phosphatase 148 03/23: Lactic acid 11.6 Treatment: Solu-Medrol 125 mg IV, Azithromycin 500 mg IVPB, Rocephin 50 ml IVPB, After work up and study, please clarify which diagnosis is most appropriate and whether present on admission ? [ ] Sepsis ruled out [ ] Sepsis treated prophylactically [ x ] Sepsis is a valid diagnosis as evidence by the following: (Please add rationale): elevated WBC, pneumonia on CXR [ ] Non-Infectious SIRS due to (please specify) [ ] Non-infectious SIRS due to with organ dysfunction as evidenced by [list organ dysfunction] [ ] Other, please specify [ ] Unable to determine MTDD
== END 2024-03-24 14:26 | disposition expired | DRG 871 ==
LOC: EC 19:29 → 6NMEDSUR 22:06 → 2SICU 03-23 17:17
PROVIDERS: ADMIT Internal Medicine; ATTEND Internal Medicine
PROC: 5A1935Z Respiratory Ventilation, Less than 24 Consecutive Hours (ICD-10-PCS; principal; 2024-03-23)
PROC: 0BH17EZ Insertion of Endotracheal Airway into Trachea, Via Natural or Artificial Opening (ICD-10-PCS; 2024-03-23)
PROC: 5A12012 Performance of Cardiac Output, Single, Manual (ICD-10-PCS; 2024-03-23)
PROC: 02HV33Z Insertion of Infusion Device into Superior Vena Cava, Percutaneous Approach (ICD-10-PCS; 2024-03-23)
PROC: 0D9670Z Drainage of Stomach with Drainage Device, Via Natural or Artificial Opening (ICD-10-PCS; 2024-03-23)
PROC: 30243N1 Transfusion of Nonautologous Red Blood Cells into Central Vein, Percutaneous Approach (ICD-10-PCS; 2024-03-23)
PROC: 3E033XZ Introduction of Vasopressor into Peripheral Vein, Percutaneous Approach (ICD-10-PCS; 2024-03-23)
PROC: 30243K1 Transfusion of Nonautologous Frozen Plasma into Central Vein, Percutaneous Approach (ICD-10-PCS; 2024-03-24)
PROC: 30243R1 Transfusion of Nonautologous Platelets into Central Vein, Percutaneous Approach (ICD-10-PCS; 2024-03-24)
DX: A41.9 Sepsis, unspecified organism (principal); J18.9 Pneumonia, unspecified organism; K66.1 Hemoperitoneum; R65.21 Severe sepsis with septic shock; J96.02 Acute respiratory failure with hypercapnia; J96.01 Acute respiratory failure with hypoxia; S35.298A Other injury of branches of celiac and mesenteric artery, initial encounter; G93.1 Anoxic brain damage, not elsewhere classified; R64 Cachexia; E87.4 Mixed disorder of acid-base balance; D62 Acute posthemorrhagic anemia; I47.20 Ventricular tachycardia, unspecified; E87.1 Hypo-osmolality and hyponatremia; J44.0 Chronic obstructive pulmonary disease with (acute) lower respiratory infection; J44.1 Chronic obstructive pulmonary disease with (acute) exacerbation; M96.A1 Fracture of sternum associated with chest compression and cardiopulmonary resuscitation; M96.A3 Multiple fractures of ribs associated with chest compression and cardiopulmonary resuscitation; I46.2 Cardiac arrest due to underlying cardiac condition; R57.8 Other shock; I49.01 Ventricular fibrillation; Z51.5 Encounter for palliative care; Z66 Do not resuscitate; E83.51 Hypocalcemia; E03.9 Hypothyroidism, unspecified; I10 Essential (primary) hypertension; F32.A Depression, unspecified; E87.6 Hypokalemia; F43.10 Post-traumatic stress disorder, unspecified; E78.5 Hyperlipidemia, unspecified; H55.09 Other forms of nystagmus; R74.01 Elevation of levels of liver transaminase levels; F17.210 Nicotine dependence, cigarettes, uncomplicated; Z79.02 Long term (current) use of antithrombotics/antiplatelets; Z79.899 Other long term (current) drug therapy; Z86.73 Personal history of transient ischemic attack (TIA), and cerebral infarction without residual deficits; Z88.0 Allergy status to penicillin; Y84.8 Other medical procedures as the cause of abnormal reaction of the patient, or of later complication, without mention of misadventure at the time of the procedure; Y92.230 Patient room in hospital as the place of occurrence of the external cause
CPT/HCPCS: 36415; 70450; 71045; 71046; 71250; 71260; 71275; 74176; 74177; 76705; 80048; 80053; 81001; 82805; 83605; 83690; 83735; 83880; 84145; 84484; 85025; 85027; 85610; 85730; 86850; 86900; 86901; 86920; 87040; 87070; 87086; 87205; 87449; 87636; 92950; 93005; 94002; 94003; 94640; 96361; 96365; 96366; 96367; 96368; 96372; 96375; 96376; 99291